=== PATIENT | female | born 1950 | race Caucasian/White ===

== ENCOUNTER 2017-12-27 03:57 | Observation (INO) | payer OTHER ==
[2017-12-27] MEDS ORDERED: ONDANSETRON 4 MG/2 ML VIAL ONE (04:24)
[2017-12-27] MEDS ORDERED: MORPHINE 4 MG/ML SYR ONE (04:24)
[2017-12-27] MEDS ORDERED: NA CHLORIDE 0.9% 1,000 ML ONE (04:33)
[2017-12-27 05:09] LABS: Absolute Lymphocytes (CBC) 1.5 K/uL (0.7-4.9); Absolute Monocytes 0.7 K/uL (0.1-1.3); Absolute Neutrophil 6.7 K/uL (1.8-8.0); Basophils % 0.6 % (0-1.3); Eosinophils % 0.2 % (0-4.4); Lymphocytes % 16.8 % (15.3-44.8); MCH 31.8 pg (27.0-35.0); MCV 90.1 fL (80-100); MPV 9.9 fL (7.6-11.3); Monocytes % 7.8 % (3.3-12.3); RBC Red Blood Cell Count 4.55 M/uL (3.86-4.86)
[2017-12-27 05:11] LABS: Protime INR 0.97
[2017-12-27 05:21] LABS: ALT/SGPT 30 U/L (12-78); AST/SGOT 29 U/L (15-37); Albumin 4.1 g/dL (3.4-5.0); Alkaline Phosphatase 82 U/L (45-117); BUN Blood Urea Nitrogen 16 mg/dL (7-18); Bicarbonate 32 mmol/L (21-32); Bilirubin Direct 0.2 mg/dL (0-0.2); Bilirubin Total 0.6 mg/dL (0.2-1.0); CKMB Creatine Kinase MB 2.6 ng/mL (0.3-3.6); Creatine Phosphokinase 118 U/L (26-192); Glucose Level 121 mg/dL (74-106); Magnesium 2.1 mg/dL (1.8-2.4); NT PRO-BNP 221 pg/mL (<125); Protein, Total 8.1 g/dL (6.4-8.2); Sodium Level 142 mmol/L (136-145); Troponin (Emerg Dept Use Only) < 0.02 ng/mL (0.0-0.045)
[2017-12-27] MEDS ORDERED: KETOROLAC 30 MG/ML INJ ONE (05:21)
--- NOTE | 2017-12-27 05:34 | EDPHYS ---
Physician Documentation [facility] Name: Kitty Nicholson Age: 67 yrs Sex: Female : 1950 Arrival Date: 12/27/2017 Time: 03:58 Bed 4 Private MD: ED Physician Yossi Bland HPI: 12/27 04:40 This 67 yrs old Female presents to ER via Ambulatory with complaints of Chest tw4 Pain. 04:40 The patient or guardian reports chest pain that is located primarily in the anterior tw4 chest wall. Onset: this morning. The pain does not radiate. Associated signs and symptoms: The patient has no apparent associated signs or symptoms. The chest pain is described as dull. Duration: The patient or guardian reports a single episode. Modifying factors: The symptoms are alleviated by nothing. the symptoms are aggravated by nothing. Historical: - Allergies: 05:20 PENICILLINS; tl1 - Home Meds: 04:10 Metoprolol Tartrate Oral [Active]; tl2 - PMHx: 04:10 lymphoma; cervical cancer; bladder cancer; Hypertension; tl2 - Immunization history:: Adult Immunizations up to date. - Social history:: Smoking status: Patient/guardian denies using tobacco. - Ebola Screening: : No symptoms or risks identified at this time. ROS: 04:40 Constitutional: Negative for fever, chills, and weight loss, Eyes: Negative for injury, tw4 pain, redness, and discharge, Cardiovascular: Negative for chest pain, palpitations, and edema, Respiratory: Negative for shortness of breath, cough, wheezing, and pleuritic chest pain, Abdomen/GI: Negative for abdominal pain, nausea, vomiting, diarrhea, and constipation, Back: Negative for injury and pain, Skin: Negative for injury, rash, and discoloration, Neuro: Negative for headache, weakness, numbness, tingling, and seizure. 04:40 MS/extremity: Positive for pain. Exam: 04:40 Constitutional: This is a well developed, well nourished patient who is awake, alert, tw4 and in no acute distress. Head/Face: Normocephalic, atraumatic. Chest/axilla: Normal chest wall appearance and motion. Nontender with no deformity. No lesions are appreciated. Cardiovascular: Regular rate and rhythm with a normal S1 and S2. No gallops, murmurs, or rubs. Normal PMI, no JVD. No pulse deficits. Respiratory: Lungs have equal breath sounds bilaterally, clear to auscultation and percussion. No rales, rhonchi or wheezes noted. No increased work of breathing, no retractions or nasal flaring. Abdomen/GI: Soft, non-tender, with normal bowel sounds. No distension or tympany. No guarding or rebound. No evidence of tenderness throughout. MS/ Extremity: Pulses equal, no cyanosis. Neurovascular intact. Full, normal range of motion. Neuro: Awake and alert, GCS 15, oriented to person, place, time, and situation. Cranial nerves II-XII grossly intact. Motor strength 5/5 in all extremities. Sensory grossly intact. Cerebellar exam normal. Normal gait. Vital Signs: 04:10 BP 190 / 88; Pulse 84; Resp 20; Temp 98.5(O); Pulse Ox 99% on R/A; Weight 52.62 kg; tl2 Height 5 ft. 6 in. (167.64 cm); Pain 6/10; 04:36 BP 114 / 51; Pulse 63; Resp 14; Pulse Ox 98% on 2 lpm NC; tl2 05:15 BP 168 / 69; Pulse 74; Resp 17; Pulse Ox 100% on 2 lpm NC; tl2 05:36 BP 157 / 66; Pulse 75; Resp 17; Pulse Ox 100% on 1 lpm NC; tl1 04:10 Body Mass Index 18.72 (52.62 kg, 167.64 cm) tl2 MDM: 03:59 Patient medically screened. tw4 04:40 Differential diagnosis: acute myocardial infarction, acute pericarditis, chest wall tw4 pain, Cholelithiasis pulmonary embolus, stable angina, thoracic aortic disection. Data reviewed: vital signs, nurses notes. Counseling: I had a detailed discussion with the patient and/or guardian regarding: the historical points, exam findings, and any diagnostic results supporting the discharge/admit diagnosis. 12/27 04:35 Order name: Basic Metabolic Panel; Complete Time: 05:28 4 12/27 05:29 Interpretation: Normal except: GLUC 121; GFR 55. [facility] 12/27 04:35 Order name: CBC with Diff; Complete Time: 05:28 4 12/27 05:30 Interpretation: Normal except: POLLY% 74.6. tw4 12/27 04:35 Order name: Ckmb; Complete Time: 05:28 tw4 12/27 05:30 Interpretation: Within normal limits: CKMB 2.6. tw4 12/27 04:35 Order name: CPK; Complete Time: 05:28 tw4 12/27 05:30 Interpretation: Within normal limits: CPK 118. tw4 12/27 04:35 Order name: LFT's; Complete Time: 05:28 tw4 12/27 05:30 Interpretation: Normal except: GLOB 4.0; A/G 1.0. tw4 12/27 04:35 Order name: Magnesium; Complete Time: 05:28 tw4 12/27 05:30 Interpretation: Within normal limits: MG 2.1. 4 12/27 04:35 Order name: NT PRO-BNP; Complete Time: 05:28 tw4 12/27 05:30 Interpretation: Normal except: NT PRO-BNP 221. 4 12/27 04:35 Order name: PT-INR; Complete Time: 05:28 tw4 12/27 04:35 Order name: Ptt, Activated; Complete Time: 05:28 tw4 12/27 04:35 Order name: Troponin (emerg Dept Use Only); Complete Time: 05:28 tw4 12/27 05:30 Interpretation: Within normal limits: TROPED < 0.02. tw4 12/27 05:44 Order name: Basic Metabolic Panel EDMS 12/27 05:44 Order name: Basic Metabolic Panel EDMS 12/27 05:44 Order name: CKMB Creatine Kinase MB EDMS 12/27 05:44 Order name: CKMB Creatine Kinase MB EDMS 12/27 04:35 Order name: XRAY Chest (1 view) tw4 12/27 05:44 Order name: Echo with Doppler EDMS 12/27 05:44 Order name: CKMB Creatine Kinase MB EDMS 12/27 05:44 Order name: Creatine Phosphokinase EDMS 12/27 05:44 Order name: Creatine Phosphokinase EDMS 12/27 05:44 Order name: Creatine Phosphokinase EDMS 12/27 05:44 Order name: Lipid Profile EDMS 12/27 05:44 Order name: Lipid Profile EDMS 12/27 05:44 Order name: PTT, Activated Partial Thromb EDMS 12/27 05:44 Order name: PTT, Activated Partial Thromb EDMS 12/27 05:44 Order name: Troponin I EDMS 12/27 05:44 Order name: Troponin I EDMS 12/27 05:44 Order name: Troponin I EDMS 12/27 05:45 Order name: CBC with Automated Diff EDMS 12/27 05:45 Order name: CBC with Automated Diff EDMS 12/27 04:35 Order name: EKG; Complete Time: 04:36 tw4 12/27 04:35 Order name: Cardiac monitoring; Complete Time: 04:38 tw4 12/27 04:35 Order name: EKG - Nurse/Tech; Complete Time: 04:38 tw4 12/27 04:35 Order name: IV Saline Lock; Complete Time: 04:38 tw4 12/27 04:35 Order name: Labs collected and sent; Complete Time: 04:38 tw4 12/27 04:35 Order name: O2 Per Protocol; Complete Time: 04:38 tw4 12/27 04:35 Order name: O2 Sat Monitoring; Complete Time: 04:38 tw4 12/27 05:44 Order name: CONS Physician Consult EDMS 12/27 05:44 Order name: Heart Healthy EDMS 12/27 05:44 Order name: EKG Electrocardiogram EDMS 12/27 05:44 Order name: EKG Electrocardiogram EDMS Administered Medications: 04:34 CANCELLED (Duplicate Order): Zofran 4 mg IM once tl2 04:35 Drug: morphine 4 mg Route: IVP; Infused Over: 2 mins; Site: right antecubital; tl2 06:00 Follow up: Response: No adverse reaction; Marked relief of symptoms; Pain is decreased tl1 04:35 Drug: Zofran 4 mg Route: IVP; Infused Over: 2 mins; Site: right antecubital; tl2 05:58 Follow up: Response: No adverse reaction; Marked relief of symptoms; Nausea is decreasedtl1 04:39 Drug: NS 0.9% 1000 ml Route: IV; Rate: 1 bolus; Site: right antecubital; tl2 05:58 Follow up: IV Status: Completed infusion tl1 05:19 Drug: TORadol 30 mg Route: IVP; Infused Over: 2 mins; Site: right antecubital; tl2 05:58 Follow up: Response: No adverse reaction; Marked relief of symptoms; Pain is decreased tl1 Disposition: 12/27/17 05:33 Hospitalization ordered by Estelle Luu for Observation. Preliminary diagnosis is Chest pain, unspecified. - Bed requested for Telemetry/MedSurg (observation). - Status is Observation. tl1 - Condition is Stable. - Problem is new. - Symptoms have improved. UTI on Admission? No Signatures: Dispatcher [employer] EDMS Trina Graf RN RN Audra Wright, RN RN tl1 Catina Kingston RN RN tl2 Yossi Bland MD MD tw4 Corrections: (The following items were deleted from the chart) 04:34 04:32 Zofran 4 mg IM once ordered. tl2 tl2 05:21 04:10 Allergies: No Known Allergies; tl2 tl1 05:37 05:33 Hospitalization Ordered by Estelle Luu MD for Observation. Preliminary diagnosis is Chest pain, unspecified. Bed requested for Telemetry/MedSurg (observation). Status is Observation. Condition is Stable. Problem is new. Symptoms have improved. UTI on Admission? No. tw4 06:26 05:37 12/27/2017 05:33 Hospitalization Ordered by Estelle Luu MD for Observation. tl1 Preliminary diagnosis is Chest pain, unspecified. Bed requested for Telemetry/MedSurg (observation). Status is Observation. Condition is Stable. Problem is new. Symptoms have improved. UTI on Admission? No. mw
--- NOTE | 2017-12-27 05:34 | ER ---
Nurse's Notes [facility] Name: Kitty Nicholson Age: 67 yrs Sex: Female : 1950 Arrival Date: 12/27/2017 Time: 03:58 Bed 4 Private MD: Diagnosis: Chest pain, unspecified Presentation: 12/27 04:08 Presenting complaint: Patient states: chest tightness that radiates to back since 1900 tl2 last night. Reports vomiting. Transition of care: patient was not received from another setting of care. Onset of symptoms was December 26, 2017 at 19:00. Risk Assessment: Do you want to hurt yourself or someone else? Patient reports no desire to harm self or others. Initial Sepsis Screen: Does the patient meet any 2 criteria? No. Patient's initial sepsis screen is negative. Does the patient have a suspected source of infection? No. Patient's initial sepsis screen is negative. Care prior to arrival: None. 04:08 Method Of Arrival: Ambulatory tl2 04:08 Acuity: JEAN CLAUDE 3 tl2 Triage Assessment: 04:10 General: Appears in no apparent distress. uncomfortable, Behavior is calm, cooperative, tl2 appropriate for age. Pain: Complains of pain in chest Pain radiates to back Pain currently is 6 out of 10 on a pain scale. Quality of pain is described as pressure. Neuro: Level of Consciousness is awake, alert, obeys commands, Oriented to person, place, time, situation. Cardiovascular: Chest pain is described as mild, quality is pressure, radiates back episodes are intermittent. Respiratory: Airway is patent Respiratory effort is even, unlabored, Respiratory pattern is regular, symmetrical. GI: Reports nausea, vomiting. : No signs and/or symptoms were reported regarding the genitourinary system. Derm: Skin is pink, warm \T\ dry. Historical: - Allergies: 05:20 PENICILLINS; tl1 - Home Meds: 04:10 Metoprolol Tartrate Oral [Active]; tl2 - PMHx: 04:10 lymphoma; cervical cancer; bladder cancer; Hypertension; tl2 - Immunization history:: Adult Immunizations up to date. - Social history:: Smoking status: Patient/guardian denies using tobacco. - Ebola Screening: : No symptoms or risks identified at this time. Screenin:13 Abuse screen: Denies threats or abuse. Nutritional screening: No deficits noted. tl2 Tuberculosis screening: No symptoms or risk factors identified. Fall Risk None identified. Assessment: 04:10 General: see triage assessment. tl2 04:10 Pain: Pain began 4 hours ago. tl1 Vital Signs: 04:10 BP 190 / 88; Pulse 84; Resp 20; Temp 98.5(O); Pulse Ox 99% on R/A; Weight 52.62 kg; tl2 Height 5 ft. 6 in. (167.64 cm); Pain 6/10; 04:36 BP 114 / 51; Pulse 63; Resp 14; Pulse Ox 98% on 2 lpm NC; tl2 05:15 BP 168 / 69; Pulse 74; Resp 17; Pulse Ox 100% on 2 lpm NC; tl2 05:36 BP 157 / 66; Pulse 75; Resp 17; Pulse Ox 100% on 1 lpm NC; tl1 04:10 Body Mass Index 18.72 (52.62 kg, 167.64 cm) tl2 Vitals: 05:15 Cardiac Rhythm Assessment Sinus rhythm. tl2 ED Course: 03:58 Patient arrived in ED. ds1 03:59 Yossi Bland MD is Attending Physician. tw4 04:09 Triage completed. tl2 04:10 Arm band placed on right wrist. tl2 04:13 Patient has correct armband on for positive identification. Bed in low position. Call tl2 light in reach. Side rails up X 1. monitor worker on. Pulse ox on. NIBP on. 04:13 Patient maintains SpO2 saturation greater than 95% on room air. tl2 04:13 Inserted saline lock: 20 gauge in right antecubital area, using aseptic technique. tl1 Blood collected. 04:37 Oxygen administration via nasal cannula \T\ 2L/min Response to oxygen therapy: symptoms tl2 improved. 04:49 X-ray completed. Portable x-ray completed in exam room. Patient tolerated procedure kp1 well. 04:52 XRAY Chest (1 view) In Process Unspecified. EDMS 05:33 Estelle Luu MD is Hospitalizing Provider. tw4 06:02 No provider procedures requiring assistance completed. tl1 06:03 Patient admitted, IV remains in place. tl1 Administered Medications: 04:34 CANCELLED (Duplicate Order): Zofran 4 mg IM once tl2 04:35 Drug: morphine 4 mg Route: IVP; Infused Over: 2 mins; Site: right antecubital; tl2 06:00 Follow up: Response: No adverse reaction; Marked relief of symptoms; Pain is decreased tl1 04:35 Drug: Zofran 4 mg Route: IVP; Infused Over: 2 mins; Site: right antecubital; tl2 05:58 Follow up: Response: No adverse reaction; Marked relief of symptoms; Nausea is decreasedtl1 04:39 Drug: NS 0.9% 1000 ml Route: IV; Rate: 1 bolus; Site: right antecubital; tl2 05:58 Follow up: IV Status: Completed infusion tl1 05:19 Drug: TORadol 30 mg Route: IVP; Infused Over: 2 mins; Site: right antecubital; tl2 05:58 Follow up: Response: No adverse reaction; Marked relief of symptoms; Pain is decreased tl1 Outcome: 05:33 Decision to Hospitalize by Provider. tw4 06:03 Admitted to Tele accompanied by tech, via wheelchair, with chart, Report called to [facility] Jessica 06:03 Condition: stable 06:03 Instructed on the need for admit. 06:26 Patient left the ED. tl1 Signatures: Dispatcher [employer] EDTanvi Fontaine dsAudra Kapadia RN RN tl1 Catina Kingston RN RN tl2 Barbara Allen kp1 Yossi Bland MD MD tw4 Corrections: (The following items were deleted from the chart) 05:21 04:10 Allergies: No Known Allergies; tl2 tl1
[2017-12-27] MEDS ORDERED: MORPHINE 4 MG/ML SYR IV PRN (05:40)
[2017-12-27] MEDS ORDERED: ACETAMINOPHEN 500 MG TAB PO PRN (05:40)
--- NOTE | 2017-12-27 08:20 | P.HP ---
Certification for Inpatient Patient admitted to: Observation With expected LOS: <2 Midnights Patient will require the following post-hospital care: None Practitioner: I am a practitioner with admitting privileges, knowledge of patient current condition, hospital course, and medical plan of care. Services: Services provided to patient in accordance with Admission requirements found in Title 42 Section 412.3 of the Code of Federal Regulations Patient History Date of Service: 12/27/17 Reason for admission: Chest pain rule out History of Present Illness: Patient is a 67-year-old female came to the hospital with chest pain. It has been going on since yesterday evening around 7:00 p.m.. It has not being in any better. She started having some nausea and vomiting. Pain went from her chest to her sternum and to her back. She has been doing some heavy lifting as well. Her pain got better after she was given some Toradol. Decision was not made to admit her to be ruled out for acute coronary syndrome. She actually had a birthday yesterday as well. Patient be admitted for rule out for acute coronary syndrome. She does not have any significant risk factors except for hypertension and her age as well as a family history as her father in his 50s from heart disease. She also had a sister who was slightly older who from multiple scleroses. Allergies Penicillins Allergy (Verified 12/27/17 05:54) Hives/Rash Home Medications: Aspirin [Ecotrin 81 MG] 81 mg PO DAILY #30 tablet. 12/27/17 Metoprolol Tartrate 25 mg PO BID #60 tablet 12/27/17 Simvastatin 20 mg PO DAILY #30 tablet 12/27/17 - Past Medical/Surgical History Has patient received pneumonia vaccine in the past: No Diabetic: No -: lymphoma -: cervical Ca -: bladder Ca -: HTN -: right foot sx -: right rotator cap sx - Family History Father Medical History: Heart disease Mother Medical History: Heart disease, Hypertension - Social History Smoking Status: Former smoker Alcohol use: Yes Place of Residence: Home Review of Systems 10-point ROS is otherwise unremarkable Physical Examination - Vital Signs Temperature: 98.2 F Blood Pressure: 157/71 Pulse: 80 Respirations: 16 Pulse Ox (%): 98 - Physical Exam General: Alert, In no apparent distress, Oriented x3 HEENT: Atraumatic, PERRLA, Mucous membr. moist/pink, EOMI, Sclerae nonicteric Neck: Supple, 2+ carotid pulse no bruit, No LAD, Without JVD or thyroid abnormality Respiratory: Clear to auscultation bilaterally, Normal air movement Cardiovascular: Regular rate/rhythm, Normal S1 S2, No murmurs Gastrointestinal: Normal bowel sounds, Soft and benign, Non-distended, No tenderness Musculoskeletal: No clubbing, No swelling, No tenderness Integumentary: No rashes Neurological: Normal gait, Normal speech, Normal strength at 5/5 x4 extr, Normal tone, Sensation intact, Normal affect Lymphatics: No axilla or inguinal lymphadenopathy - Studies Laboratory Data (last 24 hrs) 12/27/17 04:30: PT 11.4, INR 0.97, APTT 27.8 12/27/17 04:30: WBC 9.0, Hgb 14.5, Hct 41.0, Plt Count 219 12/27/17 04:30: Sodium 142, Potassium 4.0, BUN 16, Creatinine 1.00, Glucose 121 H, Magnesium 2.1, Total Bilirubin 0.6, AST 29, ALT 30, Alkaline Phosphatase 82 Assessment & Plan - Problems (Diagnosis) (1) Chest pain, rule out acute myocardial infarction Current Visit: Yes Status: Acute (2) History of hypertension Current Visit: Yes Status: Acute (3) Family history of heart disease Current Visit: Yes Status: Acute - Plan 1. Serial troponins and EKG; if last troponin is negative then she should be able to go home later today 2. Cardiology consultation 3. Echocardiogram and stress test as an outpatient 4. Anti-platelet therapy, anti coagulation, beta-peter, statin, and O2 as needed 5. Ibuprofen for pain if this is more musculoskeletal Discharge Plan: Home Plan to discharge in: 24 Hours - Advance Directives Does patient have a Living Will: Yes Does patient have a Durable POA for Healthcare: Yes - Code Status/Comfort Care Code Status Assessed: Yes Code Status: Full Code Critical Care: No Time Spent Managing PTS Care (In Minutes): 50
--- NOTE | 2017-12-27 08:36 | EKG ---
Test Date: 2017-12-27 Test Time: 04:17:25 Graphics Specialist: MEASUREMENT RESULTS: Intervals: Rate: 64 VT: 118 QRSD: 76 QT: 414 QTc: 427 [place]: P: 82 VT: 118 QRS: 72 T: 77 INTERPRETIVE STATEMENTS: Normal sinus rhythm Possible Left atrial enlargement Septal infarct, age undetermined Abnormal ECG Compared to ECG 01/07/1999 16:55:00 Myocardial infarct finding now present Left ventricular hypertrophy no longer present Electronically Signed On 12-27-17 08:36:18 CDT by Silver Cates
[2017-12-27] MEDS ORDERED: ENOXAPARIN 40 MG/0.4 ML SQ SCH (09:00)
[2017-12-27] MEDS ORDERED: METOPROLOL TAR 50 MG TAB PO SCH (09:00)
[2017-12-27] MEDS ORDERED: ASPIRIN EC 81 MG TAB PO SCH (09:00)
[2017-12-27 09:21] LABS: CKMB Creatine Kinase MB 2.1 ng/mL (0.3-3.6); Creatine Phosphokinase 83 U/L (26-192); Troponin I < 0.02 ng/mL (0.0-0.045)
--- NOTE | 2017-12-27 10:17 | RAD REPORT ---
EXAM DESCRIPTION: Kayla Single View12/27/2017 5:38 am CLINICAL HISTORY: CHEST PAIN COMPARISON: No comparisons FINDINGS: The lungs appear clear of acute infiltrate. The heart is normal size Right lung calcified granulomas are present IMPRESSION: No acute abnormalities displayed
--- NOTE | 2017-12-27 12:21 | CON ---
Date of Consultation: 12/27/[address] Luu's service on 12/27/2017. Reason For Consultation: Chest pain. History Of Present Illness: Ms. Nicholson is a 67-year-old woman without any past cardiac history. Sh juan francisco has a history of hypertension. She came in with atypical chest pain, sharp, stabbing, left-sided; some left shoulder pain. No nausea, vomiting, diaphoresis, PND, orthopnea, pedal edema, palpitation, or syncope. Negative EKG, chest x-ray, and CPK. Negative troponin. Negative BNP. Allergies: PENICILLIN. Review of Systems: Negative. Social History: Negative for tobacco. Family History: Negative. Medications: Home medications include metoprolol. Past Medical History: Include hypertension, history of cervical cancer, bladder cancer, lymphoma. Physical Examination: Vital Signs: Stable, afebrile. HEENT: Negative. Neck: Supple. No bruit. Chest: Clear to auscultation and percussion. Cardiac: Exam revealed a regular rhythm and rate without any murmurs, gallops, or rubs. Abdomen: Benign. Extremities: Revealed no clubbing, cyanosis, or edema. Diagnostic Data: Negative. Impression And Plan: 1.Atypical chest pain. 2.Hypertension. 3.History of cervical cancer, bladder cancer, and lymphoma. 4.Allergies to penicillin. Ms. Nicholson has ruled out. Her symptoms are atypical. There is an echo ordered, but cannot be done before next Thursday. She does definitely need an outpatient stress test. From my standpoint, she ca n go home whenever it is okay with Dr. Luu. We can do an echo and a stress test as an outpatient. I will discuss the case further with him. ADALI/ALEXANDER Voice ID: [id number] Report ID: [id number]
--- NOTE | 2017-12-28 00:01 | P.DS ---
Discharge Date: 12/27/17 Disposition: ROUTINE DISCHARGE Discharge Condition: GOOD Reason for Admission: Chest pain rule out Consultations: cardiology - Problems (1) Chest pain, rule out acute myocardial infarction Status: Acute (2) History of hypertension Status: Acute (3) Family history of heart disease Status: Acute Brief History of Present Illness: Patient is a 67-year-old female came to the hospital with chest pain. It has been going on since yesterday evening around 7:00 p.m.. It has not being in any better. She started having some nausea and vomiting. Pain went from her chest to her sternum and to her back. She has been doing some heavy lifting as well. Her pain got better after she was given some Toradol. Decision was not made to admit her to be ruled out for acute coronary syndrome. She actually had a birthday yesterday as well. Patient be admitted for rule out for acute coronary syndrome. She does not have any significant risk factors except for hypertension and her age as well as a family history as her father in his 50s from heart disease. She also had a sister who was slightly older who from multiple scleroses. Hospital Course: Patient was ruled out for acute coronary syndrome. Advised to follow-up as an outpt for further testing. Vital Signs/Physical Exam: Temp Pulse Resp BP Pulse Ox 98.2 F 80 16 157/71 H 98 12/27/17 08:20 12/27/17 09:46 12/27/17 08:20 12/27/17 09:46 12/27/17 08:20 General: Alert, In no apparent distress, Oriented x3 Laboratory Data at Discharge: WBC 9.0 K/uL (4.3-10.9) 12/27/17 04:30 Hgb 14.5 g/dL (12.0-15.0) 12/27/17 04:30 Hct 41.0 % (36.0-45.0) 12/27/17 04:30 Plt Count 219 K/uL (152-406) 12/27/17 04:30 PT 11.4 SECONDS (9.5-12.5) 12/27/17 04:30 INR 0.97 12/27/17 04:30 APTT 27.8 SECONDS (24.3-36.9) 12/27/17 04:30 Sodium 142 mmol/L (136-145) 12/27/17 04:30 Potassium 4.0 mmol/L (3.5-5.1) 12/27/17 04:30 BUN 16 mg/dL (7-18) 12/27/17 04:30 Creatinine 1.00 mg/dL (0.55-1.3) 12/27/17 04:30 Glucose 121 mg/dL (74-106) H 12/27/17 04:30 Magnesium 2.1 mg/dL (1.8-2.4) 12/27/17 04:30 Total Bilirubin 0.6 mg/dL (0.2-1.0) 12/27/17 04:30 AST 29 U/L (15-37) 12/27/17 04:30 ALT 30 U/L (12-78) 12/27/17 04:30 Alkaline Phosphatase 82 U/L (45-117) 12/27/17 04:30 Troponin I < 0.02 ng/mL (0.0-0.045) 12/27/17 08:55 Triglycerides 59 mg/dL (<150) 12/27/17 08:55 Cholesterol 252 mg/dL (<200) H 12/27/17 08:55 HDL Cholesterol 134 mg/dL (40-60) H 12/27/17 08:55 Cholesterol/HDL Ratio 1.88 12/27/17 08:55 Home Medications: Adalimumab [Humira 40 MG/0.8 ML] 40 mg SQ SEECOM 12/27/17 Aspirin [Ecotrin 81 MG] 81 mg PO DAILY #30 tablet. 12/27/17 Folic Acid 0.4 mg PO DAILY 12/27/17 Metoprolol Tartrate 25 mg PO BID #60 tablet 12/27/17 Metoprolol Tartrate [Lopressor*] 1 tab PO BID 12/27/17 Multivitamin [Multivitamins] 1 each PO DAILY 12/27/17 Simvastatin 20 mg PO DAILY #30 tablet 12/27/17 New Medications: Aspirin [Ecotrin 81 MG] 81 mg PO DAILY #30 tablet. Metoprolol Tartrate 25 mg PO BID #60 tablet Simvastatin 20 mg PO DAILY #30 tablet Patient Discharge Instructions: OK TO DC IV AND DC HOME if okay with Cardiology. FOLLOW-UP WITH PRIMARY CARE PROVIDER IN 1-2 WEEKS. FOLLOW-UP WITH CARDIOLOGY IN 1-2 WEEKS. RETURN TO THE ER IF symptoms worsen. CALL or TEXT DR. TRINIDAD AT [phone] IF ANY QUESTIONS REGARDING HOSPITAL STAY. PLEASE CALL THE FLOOR AT [phone] IF ANY MEDICATION OR NURSING QUESTIONS. Diet: AHA Activity: Fall precautions Followup: Silver Cates MD [ACTIVE - CAN ADMIT] - 1-2 Weeks Adelso Triana MD [UNKNOWN] - 1-2 Weeks Time spent managing pt's care (in minutes): 15
== END 2017-12-27 11:00 | disposition home or self-care (01) ==
LOC: ER 03:57 → 2ND 05:41
PROVIDERS: ADMIT Hospitalist; ATTEND Hospitalist
DX: R07.9 Chest pain, unspecified (principal); I10 Essential (primary) hypertension; Z82.49 Family history of ischemic heart disease and other diseases of the circulatory system; Z88.0 Allergy status to penicillin; Z85.41 Personal history of malignant neoplasm of cervix uteri; Z85.51 Personal history of malignant neoplasm of bladder; Z85.72 Personal history of non-Hodgkin lymphomas
CPT/HCPCS: 36415; 71045; 80048; 80061; 80076; 82550 ×2; 82553 ×2; 83735; 83880; 84484 ×2; 85025; 85610; 85730; 93005; 96361; 96374; 96375; 99285; G0378 ×2; J2405; J7030

== ENCOUNTER 2019-06-23 19:36 | Observation (INO) | payer OTHER ==
--- OUTSIDE RECORDS SUMMARY | 2019-06-23 19:39 | XMS REPORT | Summary of Care ---
:1950 Author Organization [facility] - [facility] Address [address] [place] [address] Care Team Providers Name Role Phone Adelso Triana MD Primary Care Provider Reason for Visit Reason Comments Assessment TRIAGE Encounter Details Date Type Department Care Team Description 06/22/2019 Telephone [facility] Adelso Triana Assessment (TRIAGE) Medicine - Alon Horton MD [facility] [place] [address] [facility] [place] [address] [place], [place] [phone] Allergies Active Allergy Reactions Severity Noted Date Comments Penicillin Unknown - See comments 06/18/2015 documented as of this encounter (statuses as of 06/22/2019) Medications Medication Sig Dispensed Refills Start Date End Date Status HUMIRA PEN 40 mg/0.8 0 08/11/2015 Active mL injection zolpidem 10 mg Take 1 tablet by 30 tablet 5 12/31/2017 Active tabletIndications: mouth at bedtime Insomnia, unspecified as needed for type Insomnia. metoprolol tartrate 50 TAKE 1 TABLET BY 180 tablet 4 12/31/2017 Active mg tabletIndications: MOUTH TWO TIMES Essential hypertension DAILY DIPHENOXYLATE-ATROPINE TAKE ONE (1) 30 tablet 4 07/02/2018 Active 2.5-0.025 mg per TABLET(S) BY tabletIndications: MOUTH EVERY SIX Diarrhea, unspecified HOURS NEEDED type FOR DIARRHEA. gabapentin 100 mg Take 1 capsule by 30 capsule 5 06/17/2019 Active capsuleIndications: mouth 3 (three) Earache on right times daily as needed (pain). traMADol 50 mg Take 1 tablet by 30 tablet 0 06/20/2019 Active tabletIndications: mouth every 6 Earache on right (six) hours as needed (pain). documented as of this encounter (statuses as of 06/22/2019) Active Problems Problem Noted Date Essential hypertension 08/31/2015 Bladder cancer 08/31/2015 Psoriasis 08/31/2015 Psoriatic arthritis 08/31/2015 Insomnia 08/31/2015 documented as of this encounter (statuses as of 06/22/2019) Immunizations Name Administration Dates Next Due Influenza High Dose 03/09/2018 PPD (TB) 08/26/2016 documented as of this encounter Social History Tobacco Use Types Packs/Day Years Used Date Former Smoker Smokeless Tobacco: Never Used Alcohol Use Drinks/Week oz/Week Comments Yes 1 Shots of liquor 1.0 occ 0 Standard drinks or equivalent Sex Assigned at Date Recorded Not on file Job Start Date Occupation Industry Not on file Not on file Not on file Travel History Travel Start Travel End No recent travel history available. documented as of this encounter Last Filed Vital Signs Not on filedocumented in this encounter Plan of Treatment Health Maintenance Due Date Last Done Comments HEPATITIS C (HCV) SCREEN 1950 DTaP,Tdap,and Td Vaccines (1 - Tdap) 1960 Breast Cancer Screening (MAMMOGRAM) 1989 COLONOSCOPY 12/27/1999 Zoster Recombinant Vaccine (SHINGRIX) (1 of 2) 12/27/1999 LUNG CANCER SCREEN: Recommended for age 55-80 with 30 2004 + pack year history Medicare Wellness Visit 2014 Osteoporosis Screening 2014 PNEUMOCOCCAL VACCINES 65+ (1 of 2 - PCV13) 2014 INFLUENZA VACCINE (#1) 2018 03/09/2018 documented as of this encounter Results Not on filedocumented in this encounter Insurance Payer Benefit Plan Subscriber ID Effective Dates Phone Address Type / Group HUMANA - HUMANA CHOICE [id number] 2015-Pres[employer] Medicare Adv MANAGED t PPO MEDICARE documented as of this encounter
--- OUTSIDE RECORDS SUMMARY | 2019-06-23 19:39 | XMS REPORT | Summary of Care ---
:1950 Author Organization [facility] - [facility] Address [address] [place] [address] Care Team Providers Name Role Phone Adelso Triana MD Primary Care Provider Reason for Visit Reason Comments Assessment ear pain/twitching Encounter Details Date Type Department Care Team Description 06/20/2019 Telephone [facility] Adelso rTiana Assessment (ear Medicine - Alon Horton MD pain/twitching) [address] [facility] [address] [facility] [place] [phone] Allergies Active Allergy Reactions Severity Noted Date Comments Penicillin Unknown - See comments 06/18/2015 documented as of this encounter (statuses as of 06/20/2019) Medications Medication Sig Dispensed Refills Start Date [...] as of this encounter (statuses as of 06/20/2019) Active Problems Problem Noted Date Essential hypertension 08/31/2015 Bladder cancer 08/31/2015 Psoriasis 08/31/2015 Psoriatic arthritis 08/31/2015 Insomnia 08/31/2015 documented as of this encounter (statuses as of 06/20/2019) Immunizations Name Administration Dates Next Due Influenza [...] Results Not on filedocumented in this encounter Visit Diagnoses Diagnosis Earache on right - Primary Otalgia, unspecified documented in this encounter Insurance Payer Benefit Plan Subscriber ID Effective Dates Phone Address Type / Group HUMANA - HUMANA CHOICE [id number] 2015-[facility] Medicare Adv MANAGED t PPO MEDICARE documented as of this encounter
--- OUTSIDE RECORDS SUMMARY | 2019-06-23 19:39 | XMS REPORT ---
:1950 Author Organization [facility] Address [address] [place] [address] Dr. Elam [address] [place] [address] Care Team Providers Name Role Phone Unavailable Unavailable Unavailable Problems This patient has no known problems. Allergies, Adverse Reactions, Alerts This patient has no known allergies or adverse reactions. Medications This patient has no known medications.
--- OUTSIDE RECORDS SUMMARY | 2019-06-23 19:39 | XMS REPORT | Summary of Care ---
:1950 Author Organization [facility] - [facility] Address [address] [place] [address] Care Team Providers Name Role Phone Adelso Triana MD Primary Care Provider Reason for Visit Reason Comments Ear Pain Encounter Details Date Type Department Care Team Description 06/17/2019 Office Visit [facility] Family Adelso Triana Earache on right [facility] - Alon Horton MD (Primary Dx) [address] [place] [facility] [place] [phone] Allergies Active Allergy Reactions Severity Noted Date Comments Penicillin Unknown - See comments 06/18/2015 documented as of this encounter (statuses as of 06/17/2019) Medications Medication Sig Dispensed Refills Start Date End Date Status HUMIRA PEN 40 0 08/11/2015 Active mg/0.8 mL injection zolpidem 10 mg Take 1 30 tablet 5 12/31/2017 Active tabletIndications: tablet by Insomnia, mouth at unspecified type bedtime as needed for Insomnia. metoprolol TAKE 1 180 tablet 4 12/31/2017 Active tartrate 50 mg TABLET BY tabletIndications: MOUTH TWO Essential TIMES DAILY hypertension DIPHENOXYLATE-ATRO TAKE ONE (1) 30 tablet 4 07/02/2018 Active PINE 2.5-0.025 mg TABLET(S) BY per MOUTH EVERY tabletIndications: SIX HOURS Diarrhea, NEEDED FOR unspecified type DIARRHEA. gabapentin 100 mg Take 1 30 capsule 5 06/17/2019 Active capsuleIndications capsule by : Earache on right mouth 3 (three) times daily as needed (pain). folic acid 400 mcg Take 400 mcg 0 Discontinued tablet by mouth 0 daily. pantoprazole 40 mg Take 1 30 tablet 5 12/31/2017 Discontinued EC tablet by 0 tabletIndications: mouth daily. Atypical chest pain METOPROLOL TAKE ONE (1) 180 tablet 3 06/17/2018 Discontinued TARTRATE 50 mg TABLET(S) BY 0 (Duplicate) tabletIndications: MOUTH TWICE Essential A DAY. hypertension documented as of this encounter (statuses as of 06/17/2019) Active Problems Problem Noted Date Essential hypertension 08/31/2015 Bladder cancer 08/31/2015 Psoriasis 08/31/2015 Psoriatic arthritis 08/31/2015 Insomnia 08/31/2015 documented as of this encounter (statuses as of 06/17/2019) Immunizations Name Administration Dates Next Due Influenza [...] of this encounter Last Filed Vital Signs Vital Sign Reading Time Taken Comments Blood Pressure 189/82 06/17/2019 4:14 PM DATABASE SECURITY ADMINISTRATOR Pulse 78 06/17/2019 4:14 PM DATABASE SECURITY ADMINISTRATOR Temperature - - Respiratory Rate 20 06/17/2019 4:14 PM DATABASE SECURITY ADMINISTRATOR Oxygen Saturation 99% 06/17/2019 4:14 PM DATABASE SECURITY ADMINISTRATOR Inhaled Oxygen Concentration - - Weight 56.1 kg (123 lb 9.6 oz) 06/17/2019 4:14 PM DATABASE SECURITY ADMINISTRATOR Height 167.6 cm (5' 6") 06/17/2019 4:14 PM DATABASE SECURITY ADMINISTRATOR Body Mass Index 19.95 06/17/2019 4:14 PM DATABASE SECURITY ADMINISTRATOR documented in this encounter Progress Adelso Vera MD - 06/17/2019 4:15 PM CST CC: pain right ear and behind eye Kitty is a 68 year old female Ear Pain Location: Right Behind ear: No abnormality Quality: Sharp Severity: Moderate Duration: 1 day Timing: Intermittent Progression: Partially resolved Context: not direct blow, not elevation change, not foreign body in ear, not loud noise, not recent URI and not water in ear Associated symptoms: no congestion, no cough, no fever, no headaches, no rhinorrhea, no sore throat and no tinnitus Allergies Allergen Reactions Penicillin Unknown - See comments Current Outpatient Medications Medication Sig Dispense Refill DIPHENOXYLATE-ATROPINE 2.5-0.025 mg per tablet TAKE ONE (1) TABLET(S) BY MOUTH EVERY SIX HOURS NEEDED FOR DIARRHEA. 30 tablet 4 metoprolol tartrate 50 mg tablet TAKE 1 TABLET BY MOUTH TWO TIMES DAILY 180 tablet 4 zolpidem 10 mg tablet Take 1 tablet by mouth at bedtime as needed for Insomnia. 30 tablet 5 HUMIRA PEN 40 mg/0.8 mL injection No current facility-administered medications for this visit. Past Medical History: Diagnosis Date Bladder cancer Cervical cancer Hypertension Insomnia Psoriasis Psoriatic arthritis Past Surgical History: Procedure Laterality Date ENTEROENTEROSTOMY 2012 REPAIR ROTATOR CUFF,ACUTE Right Social History Socioeconomic History Marital status: Spouse name: Not on file Number of children: Not on file Years of education: Not on file Highest education level: Not on file Occupational History Not on file Social Needs Financial resource strain: Not on file Food insecurity: Worry: Not on file Inability: Not on file Transportation needs: Medical: Not on file Non-medical: Not on file Tobacco Use Smoking status: Former Smoker Smokeless tobacco: Never Used Substance and Sexual Activity Alcohol use: Yes Alcohol/week: 1.0 standard drinks Types: 1 Shots of liquor per week Comment: occ Drug use: No Sexual activity: Not on file Lifestyle Physical activity: Days per week: Not on file Minutes per session: Not on file Stress: Not on file Relationships Social connections: Talks on phone: Not on file Gets together: Not on file Attends latter day service: Not on file Active member of club or organization: Not on file Attends meetings of clubs or organizations: Not on file Relationship status: Not on file Intimate partner violence: Fear of current or ex partner: Not on file Emotionally abused: Not on file Physically abused: Not on file Forced sexual activity: Not on file Other Topics Concern Not on file Social History Narrative 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 HENT: Positive for ear pain. Negative for congestion, rhinorrhea, sore throat and tinnitus. Respiratory: Negative for cough. Neurological: Negative for headaches. BP (!) 189/82 | Pulse 78 | Resp 20 | Ht 5' 6" (1.676 m) | Wt 123 lb 9.6 oz ( 56.1 kg) | SpO2 99% | BMI 19.95 kg/m Physical Exam Constitutional: She is oriented to person, place, and time. She appears well- developed and well-nourished. HENT: Head: Normocephalic and atraumatic. Eyes: Pupils are equal, round, and reactive to light. Conjunctivae are normal. Neck: Normal range of motion. Neck supple. No JVD present. No tracheal deviation present. No thyromegaly present. Cardiovascular: Normal rate, regular rhythm, normal heart sounds and intact distal pulses. Exam reveals no gallop and no friction rub. No murmur heard. Pulmonary/Chest: Effort normal and breath sounds normal. No respiratory distress. She has no wheezes. She has no rales. She exhibits no tenderness. Abdominal: Soft. Bowel sounds are normal. She exhibits no distension and no mass. There is no tenderness. There is no rebound and no guarding. Musculoskeletal: Normal range of motion. She exhibits no edema or tenderness. Lymphadenopathy: She has no cervical adenopathy. Neurological: She is alert and oriented to person, place, and time. Skin: Skin is warm and dry. Diagnosis: 1. Earache on right gabapentin 100 mg capsule Follow up: prn Patient Care Team: Adelso Triana MD as PCP - General ([facility]-FAMILY MEDICINE) Plan of care, desired health behaviors, goals,& medication discussed with patient. Education resources & self management tools provided and reviewed with AVS. Patient/guardian/family verbalized understanding & agrees to plan of care. Barriers to care: None Ability to manage care: Good documented in this encounter Plan of Treatment Health [...] Type / Group HUMANA - HUMANA CHOICE [id number] 2015-[employer] Medicare Adv MANAGED t O MEDICARE documented as of this encounter
--- OUTSIDE RECORDS SUMMARY | 2019-06-23 19:39 | XMS REPORT | Summary of Care ---
:1950 Author Organization [facility] - [facility] Address [address] [place] [address] Care Team Providers Name Role Phone Adelso Triana MD Primary Care Provider Encounter Details Date Type Department Care Team Description 06/17/2019 Orders Only [facility] Doctor Unassigned, No [address] [facility] [place] [address] [address] [place] [address] Allergies Active Allergy Reactions Severity Noted Date Comments Penicillin Unknown - See comments 06/18/2015 documented as of this encounter (statuses as of 06/17/2019) Medications Medication Sig Dispensed Refills Start Date End Date Status HUMIRA PEN 40 mg/0.8 0 08/11/2015 Active mL injection folic acid 400 mcg Take 400 mcg by 0 Active tablet mouth daily. pantoprazole 40 mg EC Take 1 tablet by 30 tablet 5 12/31/2017 Active tabletIndications: mouth daily. Atypical chest pain zolpidem 10 mg Take 1 tablet by 30 tablet 5 12/31/2017 Active tabletIndications: mouth at bedtime Insomnia, unspecified as needed for type Insomnia. metoprolol tartrate 50 TAKE 1 TABLET BY 180 tablet 4 12/31/2017 Active mg tabletIndications: MOUTH TWO TIMES Essential hypertension DAILY METOPROLOL TARTRATE 50 TAKE ONE (1) 180 tablet 3 06/17/2018 Active mg tabletIndications: TABLET(S) BY Essential hypertension MOUTH TWICE A DAY. DIPHENOXYLATE-ATROPINE TAKE ONE (1) 30 tablet 4 07/02/2018 Active 2.5-0.025 mg per TABLET(S) BY tabletIndications: MOUTH EVERY SIX Diarrhea, unspecified HOURS NEEDED type FOR DIARRHEA. documented as of this encounter (statuses as [...] filedocumented in this encounter Plan of Treatment Date Type Specialty Care Team Description 06/17/2019 Office Visit Family Medicine Adelso Triana MD [address] [place] [address] [place] [phone] Health Maintenance Due Date Last Done Comments [...] 2018 03/09/2018 documented as of this encounter Procedures Procedure Name Priority Date/Time Associated Diagnosis Comments ASSIGNMENT OF BENEFITS Routine 06/17/2019 4:08 PM FORM STRIPPER documented in this encounter Results Not on filedocumented in this encounter Insurance Payer Benefit Plan Subscriber ID Effective Dates Phone Address Type / Group HUMANA - HUMANA CHOICE [id number] 2015-[employer] Medicare Adv MANAGED t PPO MEDICARE documented as of this encounter
--- OUTSIDE RECORDS SUMMARY | 2019-06-23 19:39 | XMS REPORT | Summary of Care ---
:1950 Author Organization [facility] - [facility] Address [address] [place] [address] Care Team Providers Name Role Phone Adelso Triana MD Primary Care Provider Reason for Visit Reason Comments Ear Pain Encounter Details Date Type Department Care Team Description 06/17/2019 Office Visit [facility] Adelso Triana Earache on right [facility] - Alon Horton MD (Primary Dx) [address] [facility] [place] [phone] Allergies Active Allergy Reactions Severity Noted Date [...] Comments Blood Pressure 189/82 06/17/2019 4:14 PM SOIL CONSERVATIONIST Pulse 78 06/17/2019 4:14 PM SOIL CONSERVATIONIST Temperature - - Respiratory Rate 20 06/17/2019 4:14 PM SOIL CONSERVATIONIST Oxygen Saturation 99% 06/17/2019 4:14 PM SOIL CONSERVATIONIST Inhaled Oxygen Concentration - - Weight 56.1 kg (123 lb 9.6 oz) 06/17/2019 4:14 PM SOIL CONSERVATIONIST Height 167.6 cm (5' 6") 06/17/2019 4:14 PM SOIL CONSERVATIONIST Body Mass Index 19.95 06/17/2019 4:14 PM SOIL CONSERVATIONIST documented in this encounter Progress Adelso Vera [...] file Gets together: Not on file Attends muslim service: Not on file Active member of [...] History Narrative 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
--- OUTSIDE RECORDS SUMMARY | 2019-06-23 19:39 | XMS REPORT | Summary of Care ---
:1950 Author Organization [facility] - [facility] Address [address] [place] [address] Care Team Providers Name Role Phone Adelso Triana MD Primary Care Provider Reason for Visit Reason Comments Medical Records Encounter Details Date Type Department Care Team Description 06/23/2019 Telephone [facility] Adelso Triana, Medical Records Medicine - Alon PEPE [facility] [address] [place] [address] [place] [phone] Allergies Active Allergy Reactions Severity Noted Date Comments Penicillin Unknown - See comments 06/18/2015 documented as of this encounter (statuses as of 06/23/2019) Medications Medication Sig Dispensed Refills Start Date [...] as of this encounter (statuses as of 06/23/2019) Active Problems Problem Noted Date Essential hypertension 08/31/2015 Bladder cancer 08/31/2015 Psoriasis 08/31/2015 Psoriatic arthritis 08/31/2015 Insomnia 08/31/2015 documented as of this encounter (statuses as of 06/23/2019) Immunizations Name Administration Dates Next Due Influenza [...] Treatment Date Type Specialty Care Team Description 06/23/2019 Office Visit Family Medicine Opal [place], AMANDA [address] [place] [address] [place] [phone] Health Maintenance Due Date Last Done Comments [...] Type / Group HUMANA - HUMANA CHOICE [id number] 2015-[place] Medicare Adv MANAGED t PPO MEDICARE documented as of this encounter
--- NOTE | 2019-06-23 20:44 | EDPHYS ---
Physician Documentation [facility] Name: Kitty Nicholson Age: 68 yrs Sex: Female : 1950 Arrival Date: 06/23/2019 Time: 19:39 Bed 20 Private MD: ED Physician Cheko John HPI: 06/23 20:14 This 68 yrs old Female presents to ER via Ambulatory with complaints of Rash. pkl 20:14 The rash is located on the Mouth, right cheek and right ear. The rash can be described pkl as vesicular. Onset: The symptoms/episode began/occurred 1 week(s) ago. Associated signs and symptoms: Pertinent positives: Pain. Saw 2 doctors today and both diagnosed her with shingles and recommended her for admission and IV infusion of Acyclovir. Historical: - Allergies: 19:48 PENICILLINS; sg - Home Meds: 20:58 Metoprolol Tartrate Oral [Active]; wh - PMHx: 19:48 Bladder cancer; cervical cancer; Hypertension; LYMPHOMA; sg - Immunization history:: Adult Immunizations up to date. - Social history:: Smoking status: Patient denies any tobacco usage or history of. ROS: 20:14 Eyes: Negative for injury, pain, redness, and discharge. pkl 20:14 ENT: Positive for rash right earlobe. 20:14 Neck: Negative for stiffness. 20:14 Cardiovascular: Negative for chest pain. 20:14 Respiratory: Negative for cough, shortness of breath. 20:14 Abdomen/GI: Negative for abdominal pain, nausea, vomiting, and diarrhea. 20:14 Back: Negative for acute changes. 20:14 : Negative for urinary symptoms. 20:14 MS/extremity: Negative for acute changes. 20:14 Skin: Positive for rash, of the mouth, right cheek and right earlobe. 20:14 Neuro: Negative for altered mental status. Exam: 20:14 Head/face: Noted is rash, of the right cheek. pkl 20:14 Eyes: Exam is negative for acute changes. 20:14 ENT: rash right earlobe. 20:14 Neck: Exam negative for nuchal rigidity. 20:14 Chest/axilla: Exam negative for acute changes. 20:14 Cardiovascular: Rate: normal, Rhythm: regular. 20:14 Respiratory: Exam negative for acute changes. 20:14 Abdomen/GI: Exam negative for acute changes. 20:14 Back: Exam negative for acute changes. 20:14 : Exam negative for acute changes. 20:14 Musculoskeletal/extremity: Exam is negative for acute changes. 20:14 Skin: on the mouth, right cheek and right earlobe. 20:14 Neuro: Orientation: is normal, Mentation: is normal, Cranial nerves: grossly normal, Motor: is normal. 20:44 Constitutional: This is a well developed, well nourished patient who is awake, alert, pkl and in no acute distress. Vital Signs: 19:48 BP 118 / 70; Pulse 78; Resp 18; Pulse Ox 100% on R/A; Weight 59.87 kg (R); sg 21:03 BP 165 / 71; Pulse 70; Resp 18; Pulse Ox 96% ; wh 22:02 BP 145 / 93; Pulse 72; Resp 18; Pulse Ox 96% on R/A; MDM: 19:46 Patient medically screened. pkl 20:41 Data reviewed: vital signs, nurses notes. ED course: Talked to Dr. Luu, admit. pkl 06/23 21:00 Order name: CBC with Diff; Complete Time: 01:51 pkl 06/23 21:00 Order name: Chem 7; Complete Time: 01:51 pkl 06/23 21:41 Order name: CBC Smear Scan; Complete Time: 01:51 EDMS 06/23 21:45 Order name: CBC with Automated Diff EDMS 06/23 21:45 Order name: CBC with Automated Diff EDMS 06/23 21:45 Order name: Comprehensive Metabolic Panel EDMS 06/23 21:45 Order name: CONS Pharmacy Consult EDMS 06/23 21:45 Order name: NPO EDMS 06/23 21:45 Order name: Comprehensive Metabolic Panel EDMS Administered Medications: 21:50 Drug: NS 0.9% 1000 ml Route: IV; Rate: 100 ml/hr; Site: right antecubital; 22:22 Follow up: Response: No adverse reaction; IV Status: Completed infusion 21:51 Drug: Kenneth (7.5 mg-325 mg) 1 tabs Route: PO; 22:22 Follow up: Response: No adverse reaction; Pain is decreased; RASS: Alert and Calm (0) Disposition: 02/27/20 20:44 Hospitalization ordered by Estelle Luu for Inpatient Admission. Preliminary diagnosis is Herpes zoster mouth, right cheek and right earlobe. - Bed requested for Telemetry/MedSurg (Inpatient). - Status is Inpatient Admission. - Condition is Stable. - Problem is new. - Symptoms are unchanged. Signatures: Dispatcher [employer] EDNura Lal, CHRISTA RN Cheko Cortez MD MD pkl [facility] Alin Benitez mw2 Corrections: (The following items were deleted from the chart) 21:47 20:44 Hospitalization Ordered by Estelle Luu MD for Inpatient Admission. Preliminary mw2 diagnosis is Herpes zoster mouth, right cheek and right earlobe. Bed requested for Telemetry/MedSurg (Inpatient). Status is Inpatient Admission. Condition is Stable. Problem is new. Symptoms are unchanged. pkl 22:23 21:47 06/23/2019 20:44 Hospitalization Ordered by Estelle Luu MD for Inpatient Admission. Preliminary diagnosis is Herpes zoster mouth, right cheek and right earlobe. Bed requested for Telemetry/MedSurg (Inpatient). Status is Inpatient Admission. Condition is Stable. Problem is new. Symptoms are unchanged. mw2
--- NOTE | 2019-06-23 20:44 | ER ---
Nurse's Notes [facility] Name: Kitty Nicholson Age: 68 yrs Sex: Female : 1950 Arrival Date: 06/23/2019 Time: 19:39 Bed 20 Private MD: Diagnosis: Herpes zoster mouth, right cheek and right earlobe Presentation: 06/23 19:45 Onset of symptoms was June 23, 2019 at 21:02. 19:48 Acuity: JEAN CLAUDE 3 sg 19:48 Chief complaint: Patient states: My doctor told me to get to the ER for IV infusion for sg my shingles on my face, a linear rash is noted that spreads from the pt mouth up to the right ear, pt reports painful blisters inside mouth and throat with difficulty swallowing. Coronavirus screen: The patient has NOT traveled to [place] in the past 14 days. The patient has NOT had contact with known and/or suspected case of Coronavirus. Ebola Screen: Patient negative for fever greater than or equal to 101.5 degrees Fahrenheit, and additional compatible Ebola Virus Disease symptoms Patient denies exposure to infectious person. Patient denies travel to an Ebola-affected area in the 21 days before illness onset. No symptoms or risks identified at this time. Initial Sepsis Screen: Does the patient meet any 2 criteria? No. Patient's initial sepsis screen is negative. Does the patient have a suspected source of infection? No. Patient's initial sepsis screen is negative. Risk Assessment: Do you want to hurt yourself or someone else? Patient reports no desire to harm self or others. 19:48 Method Of Arrival: Ambulatory sg Historical: - Allergies: 19:48 PENICILLINS; sg - Home Meds: 20:58 Metoprolol Tartrate Oral [Active]; wh - PMHx: 19:48 Bladder cancer; cervical cancer; Hypertension; LYMPHOMA; sg - Immunization history:: Adult Immunizations up to date. - Social history:: Smoking status: Patient denies any tobacco usage or history of. Screenin:45 Abuse screen: Denies threats or abuse. Denies injuries from another. Nutritional wh screening: No deficits noted. Tuberculosis screening: No symptoms or risk factors identified. Fall Risk None identified. Assessment: 19:50 General: Appears in no apparent distress. Behavior is calm, cooperative, appropriate wh for age. Pain: Complains of pain in right side of face Pain does not radiate. Neuro: Level of Consciousness is awake, alert, obeys commands, Oriented to person, place, time, situation, Appropriate for age. Cardiovascular: Heart tones S1 S2. Respiratory: Airway is patent Respiratory effort is even, unlabored, Respiratory pattern is regular, symmetrical, Breath sounds are clear bilaterally. GI: Abdomen is flat, non-distended. : No signs and/or symptoms were reported regarding the genitourinary system. EENT: No signs and/or symptoms were reported regarding the EENT system. Derm: Rash noted that is red, on right side of face. Musculoskeletal: Circulation, motion, and sensation intact. 21:04 Reassessment: Patient appears in no apparent distress at this time. No changes from previously documented assessment. Patient and/or family updated on plan of care and expected duration. Pain level reassessed. Patient is alert, oriented x 3, equal unlabored respirations, skin warm/dry/pink. 22:02 Reassessment: Patient appears in no apparent distress at this time. No changes from previously documented assessment. Patient and/or family updated on plan of care and expected duration. Pain level reassessed. Patient is alert, oriented x 3, equal unlabored respirations, skin warm/dry/pink. Vital Signs: 19:48 BP 118 / 70; Pulse 78; Resp 18; Pulse Ox 100% on R/A; Weight 59.87 kg (R); sg 21:03 BP 165 / 71; Pulse 70; Resp 18; Pulse Ox 96% ; wh 22:02 BP 145 / 93; Pulse 72; Resp 18; Pulse Ox 96% on R/A; wh ED Course: 19:39 Patient arrived in ED. ag3 19:45 Patient has correct armband on for positive identification. Placed in gown. Bed in low wh position. Call light in reach. Side rails up X 1. Pulse ox on. NIBP on. 19:46 Cheko John MD is Attending Physician. pkl 19:47 Arm band placed on. sg 19:48 Triage completed. sg 20:12 Nura Gutierrez, CHRISTA is Primary Nurse. sg 20:42 Estelle Luu MD is Hospitalizing Provider. pkl 21:00 Inserted saline lock: 20 gauge in right antecubital area, using aseptic technique. wh Blood collected. 22:20 No provider procedures requiring assistance completed. Patient admitted, IV remains in place. Administered Medications: 21:50 Drug: NS 0.9% 1000 ml Route: IV; Rate: 100 ml/hr; Site: right antecubital; 22:22 Follow up: Response: No adverse reaction; IV Status: Completed infusion 21:51 Drug: [place] (7.5 mg-325 mg) 1 tabs Route: PO; 22:22 Follow up: Response: No adverse reaction; Pain is decreased; RASS: Alert and Calm (0) Outcome: 20:44 Decision to Hospitalize by Provider. pk 22:21 Admitted to Med/surg accompanied by tech, via wheelchair, room 222, with chart, Report called to Savanna Grewal 22:21 Condition: stable 22:21 Instructed on the need for admit. 22:23 Patient left the ED. Signatures: Nura Gutierrez RN RN sg Lam, Pin, MD MD pk Kristine, Mitch Lauren Guzman ag3 Corrections: (The following items were deleted from the chart) 22:21 21:00 Inserted saline lock: 20 gauge in right antecubital area, using aseptic technique.
[2019-06-23] MEDS ORDERED: NA CHLORIDE 0.9% 1,000 ML ONE (21:21)
[2019-06-23 21:23] LABS: Absolute Lymphocytes (CBC) 0.4 K/uL (0.7-4.9); Basophils % 0.8 % (0-1.3); Hematocrit 37.2 % (36.0-45.0); Lymphocytes % 14.7 % (15.3-44.8); MPV 9.5 fL (7.6-11.3); RBC Red Blood Cell Count 4.18 M/uL (3.86-4.86)
[2019-06-23 21:37] LABS: Potassium 4.2 mmol/L (3.5-5.1)
[2019-06-23 21:40] LABS: Blood Morphology Comment NOT SEEN (NOT SEEN); Platelet Estimate DECR; Urine White Blood Cell Casts OK
[2019-06-23] MEDS ORDERED: ACETAMINOPHEN 500 MG TAB PO PRN (21:40)
[2019-06-23] MEDS ORDERED: ONDANSETRON 4 MG/2 ML VIAL IV PRN (21:40)
[2019-06-23] MEDS ORDERED: HYDROCODONE/APAP 7.5/325 MG TAB ONE (21:44)
[2019-06-23] MEDS ORDERED: NA CHLORIDE 0.9% 1,000 ML IV SCH (22:00)
[2019-06-23 22:56] VITALS: O2SAT 96
[2019-06-23 23:28] VITALS: BMI 19.5
[2019-06-23] MEDS: MORPHINE 2 MG/ML SYR IV PRN (23:29)
[2019-06-24] MEDS ORDERED: NA CHLORIDE 0.9% 100 ML ONE (00:10)
[2019-06-24] MEDS ORDERED: ACYCLOVIR NA 500 MG/VIAL IVPB ONE (00:15)
[2019-06-24] MEDS: ACYCLOVIR INJ 400 MG in NA CHLORIDE 0.9% 100 ML IVPB SCH ×2 (01:00→09:33)
[2019-06-24] MEDS: MORPHINE 2 MG/ML SYR IV PRN (03:10)
[2019-06-24 06:10] LABS: Absolute Lymphocytes (CBC) 0.6 K/uL (0.7-4.9); Hematocrit 34.8 % (36.0-45.0); Lymphocytes % 20.4 % (15.3-44.8); MPV 9.6 fL (7.6-11.3)
[2019-06-24 06:22] LABS: Albumin 3.6 g/dL (3.4-5.0); Bilirubin Total 0.6 mg/dL (0.2-1.0); Potassium 4.4 mmol/L (3.5-5.1); Protein, Total 7.2 g/dL (6.4-8.2)
[2019-06-24] MEDS ORDERED: HYDROMORPHONE HCL 0.5 MG/0.5 ML INJ IV PRN (06:39)
[2019-06-24] MEDS ORDERED: TRAMADOL HCL 50 MG TAB PO PRN (06:45)
[2019-06-24] MEDS ORDERED: HYDROCODONE/APAP 7.5/325 MG TAB PO PRN (06:45)
[2019-06-24] MEDS ORDERED: VANCOMYCIN 1 GM in NA CHLORIDE 0.9% 500 ML IVPB ONE (06:48)
--- NOTE | 2019-06-24 07:02 | P.HP ---
Certification for Inpatient Patient admitted to: Inpatient With expected LOS: >2 Midnights Patient will require the following post-hospital care: None Practitioner: I am a practitioner with admitting privileges, knowledge of patient current condition, hospital course, and medical plan of care. Services: Services provided to patient in accordance with Admission requirements found in Title 42 Section 412.3 of the Code of Federal Regulations Patient History Date of Service: 06/23/19 Reason for admission: Shingles of the face History of Present Illness: The patient is a 68-year-old female was admitted hospital with shingles to the face. The patient went to [facility] ER a few days ago and initially a history of inner ear infection. She did not have scar or rash that time but was just having some discomfort. This was diagnosed by her PCP initially as well. She started noticing that she started having a rash and pain throughout the right side of her face. The pain became more severe and the rash became more prominent. She noticed some blisters inside her mouth she went back to the [facility]. At that time she was told she had shingles to the face with a possible secondary bacterial infection. She went to see her PCP who also felt that she had the shingles. Both of the right large toe related to the hospital she probably needed intravenous treatment. She does have all branches of the trigeminal nerve involved. She is having some discomfort on the right lateral eye as well as her right ear. We started her on IV acyclovir. Patient does take Humira. We lowered her immune system. She probably would benefit from the shingles vaccine. At this time will continue with aggressive therapy in hospital and we will monitor this closely. Allergies Penicillins Allergy (Verified 06/24/19 01:42) Hives/Rash Home Medications: Gabapentin [Neurontin*] 100 mg PO TID PRN #30 cap 06/24/19 Ibuprofen 400 mg PO TID PRN #30 tablet 06/24/19 Metoprolol Tartrate [Lopressor*] 50 mg PO BID 06/24/19 Valacyclovir HCl [Valtrex] 1,000 mg PO BID #20 tablet 06/24/19 traMADol HCL [Ultram*] 50 mg PO TID PRN #20 tab 06/24/19 - Past Medical/Surgical History Has patient received pneumonia vaccine in the past: Yes Diabetic: No -: lymphoma -: cervical Ca -: bladder Ca -: HTN -: right foot sx -: right rotator cap sx - Family History Father Medical History: Heart disease Mother Medical History: Heart disease, Hypertension - Social History Smoking Status: Former smoker Alcohol use: Yes CD- Drugs: No Caffeine use: Yes Place of Residence: Home Review of Systems 10-point ROS is otherwise unremarkable Physical Examination - Vital Signs Temperature: 97.9 F Blood Pressure: 168/73 Pulse: 79 Respirations: 18 Pulse Ox (%): 100 - Physical Exam General: Alert, In no apparent distress, Oriented x3 HEENT: Atraumatic, PERRLA, Other (Ulceration to the right side upper mucous membranes; TMs with some ulceration inside the ear canal), EOMI, Sclerae nonicteric Neck: Supple, 2+ carotid pulse no bruit, No LAD, Without JVD or thyroid abnormality Respiratory: Clear to auscultation bilaterally, Normal air movement Cardiovascular: Regular rate/rhythm, Normal S1 S2 Gastrointestinal: Normal bowel sounds, Soft and benign, Non-distended, No tenderness Musculoskeletal: No clubbing, No swelling, No tenderness Integumentary: Skin lesion, Tenderness/swelling, Erythema, Other Neurological: Normal gait, Normal speech, Normal strength at 5/5 x4 extr, Normal tone, Normal affect, Abnormal cranial nerve function Lymphatics: No axilla or inguinal lymphadenopathy - Studies Laboratory Data (last 24 hrs) 06/23/19 21:10: Sodium 139, Potassium 4.2, BUN 18, Creatinine 1.20, Glucose 142 H 06/23/19 21:10: WBC 2.6 L, Hgb 12.6, Hct 37.2, Plt Count 120 L Assessment & Plan - Problems (Diagnosis) (1) Trigeminal neuralgia Status: Acute (2) History of immunocompromised state Status: Acute - Plan PLAN: 1. Acyclovir IVPB q8h 2. Neuropathic medication 3. Pain control 4. Monitor for secondary cellulitis 5. GI/DVT prophylaxis - Advance Directives Does patient have a Living Will: No Does patient have a Durable POA for Healthcare: Yes - Code Status/Comfort Care Code Status Assessed: Yes Code Status: Full Code Critical Care: No Time Spent Managing PTS Care (In Minutes): 45
[2019-06-24] MEDS ORDERED: VANCOMYCIN/NS 1 gm 1 GM/250 ML BAG IV ONE (07:30)
[2019-06-24 08:44] LABS: Blood Morphology Comment NOT SEEN (NOT SEEN); Platelet Estimate DECR
--- NOTE | 2019-06-24 08:52 | P.DS ---
Admission Date: 06/23/19 Discharge Date: 06/24/19 Primary Care Provider: Dr. Triana Discharge Condition: GOOD Reason for Admission: Shingles of the face Consultations: Infectious Disease-Dr. Alston Procedures: none Medical Problem List: Right-sided facial shingles with neuropathy Acute renal injury likely from dehydration Hypertension Brief History of Present Illness: 68-year-old female presented to the emergency room with right-sided shingles. She had been seen by her PCP, [facility] for possible urine infection. She went to see her PCP yesterday and diagnosed with shingles. She came to the ER due to increasing pain. Patient was admitted for observation. Hospital Course: Patient presented with right facial shingles. Patient had severe pain likely related to neuropathy. Unilateral vesicular eruption noted to lower dermatome distribution of the face. IV acyclovir given. No evidence of secondary cellulitis noted at this time. Neurontin started for pain control. Patient was hydrated with IV fluids due to acute renal injury related to dehydration. Mild thrombocytopenia noted likely from viral infection. Pro calcitonin negative. No evidence of exposure to the eye or evidence of invasion to the orbit. Patient has done well. At discharge patient will continue with Valtrex 1000 mg twice daily for 10 days. Patient will also be given Neurontin 100 mg 3 times a day for neuropathy pain. A limited supply of tramadol 50 mg 3 times a day as needed for pain will also be provided. Patient will also be provided ibuprofen 400 mg 3 times a day as needed for pain and inflammation. Recommend follow up with her PCP to further monitor and address. Patient may require further treatment of antiviral if rash persists. This can be further addressed by her PCP. Encourage oral intake. Recommend to recheck lab-CBC, BMP in 1-2 weeks to follow up this hospitalization. If pain persists patient may benefit with neurology evaluation for post herpetic neuralgia. Education on shingles and post herpetic neuralgia will be provided. Until the rash has crusted, patient's should be advised to keep the rash covered and wash hands often to prevent spread of virus to others. Patient should avoid contact with women who have not received varicella vaccine or never had chickenpox. Patient should consider varicella vaccine in the near future. Patient with hypertension. At discharge she may continue with her metoprolol 50 mg 1 pill twice daily. Recommend to maintain blood pressures less 150/80. Further adjustment can be done by her PCP. Vital Signs/Physical Exam: Temp Pulse Resp BP Pulse Ox 97.9 F 79 18 168/73 H 100 06/24/19 07:31 06/24/19 07:31 06/24/19 07:31 06/24/19 07:31 06/24/19 07:31 General: Alert, Cooperative HEENT: Atraumatic, Other (Herpetic rash to the right lower dermatome level. No invasion to orbit.) Neck: Supple, No Thyromegaly Respiratory: Clear to auscultation bilaterally, Normal air movement Cardiovascular: Normal pulses, Regular rate/rhythm Gastrointestinal: Normal bowel sounds, Soft and benign, Non-distended, No tenderness, No masses, No rebound, No guarding Musculoskeletal: No tenderness, No warmth Integumentary: Other (As above) Neurological: Normal speech, Normal strength at 5/5 x4 extr, Normal tone, Normal affect Laboratory Data at Discharge: WBC 3.1 K/uL (4.3-10.9) L D 06/24/19 05:52 Hgb 12.0 g/dL (12.0-15.0) 06/24/19 05:52 Hct 34.8 % (36.0-45.0) L 06/24/19 05:52 Plt Count 109 K/uL (152-406) L 06/24/19 05:52 Sodium 142 mmol/L (136-145) 06/24/19 05:52 Potassium 4.4 mmol/L (3.5-5.1) 06/24/19 05:52 BUN 14 mg/dL (7-18) 06/24/19 05:52 Creatinine 1.03 mg/dL (0.55-1.3) 06/24/19 05:52 Glucose 93 mg/dL (74-106) 06/24/19 05:52 Total Bilirubin 0.6 mg/dL (0.2-1.0) 06/24/19 05:52 AST 22 U/L (15-37) 06/24/19 05:52 ALT 18 U/L (12-78) 06/24/19 05:52 Alkaline Phosphatase 82 U/L (45-117) 06/24/19 05:52 Home Medications: Gabapentin [Neurontin*] 100 mg PO TID PRN #30 cap 06/24/19 Ibuprofen 400 mg PO TID PRN #30 tablet 06/24/19 Metoprolol Tartrate [Lopressor*] 50 mg PO BID 06/24/19 Valacyclovir HCl [Valtrex] 1,000 mg PO BID #20 tablet 06/24/19 traMADol HCL [Ultram*] 50 mg PO TID PRN #20 tab 06/24/19 New Medications: Gabapentin [Neurontin*] 100 mg PO TID PRN #30 cap PRN Reason: Pain Scale 2-4 (Mild) Ibuprofen 400 mg PO TID PRN #30 tablet PRN Reason: Pain Scale 2-4 (Mild) traMADol HCL [Ultram*] 50 mg PO TID PRN #20 tab PRN Reason: Pain Valacyclovir HCl [Valtrex] 1,000 mg PO BID #20 tablet Patient Discharge Instructions: 1. Follow up with PCP in 1 week to follow up this hospitalization. 2. Patient presented with right facial shingles. Patient had severe pain likely related to neuropathy. Unilateral vesicular eruption noted to lower dermatome distribution of the face. IV acyclovir given. No evidence of secondary bacterial cellulitis noted. Neurontin started for pain control. Patient was hydrated with IV fluids due to acute renal injury related to dehydration. Mild thrombocytopenia noted likely from viral infection. No evidence of exposure to the eye or evidence of invasion to the orbit. Patient has done well. At discharge patient will continue with Valtrex 1000 mg twice daily for 10 days. Patient will also be given Neurontin 100 mg 3 times a day for neuropathy pain. A limited supply of tramadol 50 mg 3 times a day as needed for pain will also be provided. Patient may also use ibuprofen 400 mg 3 times a day as needed for pain and inflammation. Recommend follow up with her PCP to further monitor and address. Patient may require further treatment of antiviral if rash persists. This can be further addressed by her PCP. Encourage oral intake. Recommend to recheck lab-CBC, BMP in 1-2 weeks to follow up this hospitalization. If pain persists patient may benefit with neurology evaluation for post herpetic neuralgia. Education on shingles and post herpetic neuralgia will be provided. Until the rash has crusted, patient' s should be advised to keep the rash covered and wash hands often to prevent spread of virus to others. Patient should avoid contact with women who have not received varicella vaccine or never had chickenpox. Patient should consider varicella vaccine in the near future. 3. Patient with hypertension. At discharge she may continue with her metoprolol 50 mg 1 pill twice daily. Recommend to maintain blood pressures less 150/80. Further adjustment can be done by her PCP. Diet: AHA Activity: Ad matthew Time spent managing pt's care (in minutes): 55
[2019-06-24] MEDS ORDERED: PREGABALIN 75 MG CAP PO SCH (09:00)
[2019-06-24] MEDS ORDERED: METOPROLOL TAR 50 MG TAB PO SCH (09:00)
[2019-06-24] MEDS ORDERED: MULTIVIT W/ MINERAL TAB PO SCH (09:00)
[2019-06-24] MEDS ORDERED: FOLIC ACID 1 MG TABLET PO SCH (09:00)
[2019-06-24] MEDS ORDERED: ASPIRIN EC 81 MG TAB PO SCH (09:00)
[2019-06-24] MEDS ORDERED: METOPROLOL TAR 25 MG TAB PO SCH (09:00)
[2019-06-24] MEDS ORDERED: GABAPENTIN 100 MG CAP PO SCH (09:00)
--- NOTE | 2019-06-24 15:02 | CON ---
History Of Present Illness: This is a 68-year-old female I was consulted for shingles. Patient was recently seen at [facility] where she was told that she has ear infection. At that time, patient did not have any rash or any blisters. Patient denies any chest pain, abdominal pain, constipation, diarrhea. Has discomfort to the right side of her face and also has some blistering lesion to the right side of her face stage 3 involving the chin area. Patient denies any problem with our vision or hearing. She was started on acyclovir. The patient does take Humira, which can decrease her immune system. We will continue acyclovir and monitor for signs of infection. Past Medical History: Lymphoma, cervical cancer, bladder cancer with radiation therapy, hypertension, right foot surgery, right rotator cuff surgery. Social History: no tobacco use and alcohol use. Family History: noncontributry. Medications: Acyclovir and pain management. Allergies: PENICILLIN. Review of Systems: A 10-point review was performed. Physical Examination: General: This is a 68-year-old female, lying in bed, not in any acute cardiopulmonary distress. Vital Signs: Temperature 99, pulse 79, respirations 16, blood pressure 186/82. HEENT: Unremarkable. Neck: Supple. Lungs: Clear to auscultation. Heart: S1, S2. Regular. Abdomen: Soft. Bowel sounds present. Extremities: No edema. Skin: Shows erythematous changes on the right side of the face and some few blistering lesion noted close to the chin, distal mandibular region. Laboratory Data: Shows WBC 3.1, hemoglobin 12, platelets are 109. Chemistry shows sodium 142, potassium 4.4, chloride 109, bicarb 28, BUN 14, creatinine 1, glucose is 93. Procalcitonin is 0.05. Micro data, no microbiology data available at this time. Assessment And Plan: 68-year-old female with shingles involving facial distribution pattern with some active lesion. We will recommend to apply Zovirax cream and continue acyclovir, total course of 7 days, can be switched to oral tablet. Pain management as per internal medicine team. Also recommend to try tramadol and Toradol for anti-inflammatory purposes for 3 days. Follow up with primary care doctor if symptoms continue or see neurologist. No need of antibiotic at this time. We will follow the patient closely. Thank you Dr. Peña for consult. NF/MODL Voice ID: [id number] Report ID: [id number] SIRIA
[2019-06-24 19:45] VITALS: BP 168/73; TEMP 97.9
[2019-06-24] MEDS ORDERED: ATORVASTATIN 10 MG TAB PO SCH (21:00)
== END 2019-06-24 12:23 | disposition home or self-care (01) ==
LOC: ER 19:36 → INTOOBSV 21:46 → ERHOLD 21:46 → 2ND 22:06
PROVIDERS: ADMIT Hospitalist; ATTEND Family Medicine
DX: B02.23 Postherpetic polyneuropathy (principal); N17.9 Acute kidney failure, unspecified; E86.0 Dehydration; I10 Essential (primary) hypertension; D69.6 Thrombocytopenia, unspecified; Z79.899 Other long term (current) drug therapy; Z85.41 Personal history of malignant neoplasm of cervix uteri; Z85.51 Personal history of malignant neoplasm of bladder; Z92.3 Personal history of irradiation; Z87.891 Personal history of nicotine dependence
CPT/HCPCS: 85025 ×2; 80048; 36415; 80053; 84145; 96360; 99285; J2270 ×2; J1170; J3370; J7030; J0133; G0378 ×2; J7040

== ENCOUNTER 2019-10-11 11:21 | Emergency (ER) | payer OTHER ==
[2019-10-11] MEDS ORDERED: DIPHENHYDRAMINE 50 MG/ML VIAL ONE (13:09)
[2019-10-11] MEDS ORDERED: FAMOTIDINE 20 MG/2 ML VIAL IV ONE (13:10)
[2019-10-11] MEDS ORDERED: NA CHLORIDE 0.9% 500 ML ONE (13:10)
[2019-10-11] MEDS ORDERED: dexAMETHasone 10 MG/ML VIAL ONE (13:10)
[2019-10-11] MEDS ORDERED: predniSONE 20 MG TAB ONE (13:10)
--- NOTE | 2019-10-11 13:37 | EDPHYS ---
Physician Documentation [facility] Name: Kitty Nicholson Age: 68 yrs Sex: Female : 1950 Arrival Date: 10/11/2019 Time: 11:22 Bed 5 Private MD: Adelso Triana ED Physician Chaz Blackman HPI: 10/10 12:53 This 68 yrs old Female presents to ER via Ambulatory with complaints of idania Allergic Reaction. 12:53 The patient presents with localized swelling, rash, redness of skin, runny nose, idania swelling of the lips. Onset: The symptoms/episode began/occurred 3 day(s) ago. Associated signs and symptoms: The patient has no apparent associated signs or symptoms. Possible causes: tequila. At home the patient or guardian has treated the symptoms with steroids, pepcid. Severity of symptoms: At their worst the symptoms were mild in the emergency department the symptoms are unchanged. The patient has experienced a previous episode, approximately 3 days ago. Historical: - Allergies: 11:51 PENICILLINS; hb - PMHx: 11:51 Bladder cancer; cervical cancer; Hypertension; LYMPHOMA; hb - Immunization history:: Adult Immunizations up to date. - Social history:: Smoking status: Patient denies any tobacco usage or history of. - Family history:: not pertinent. ROS: 12:53 Constitutional: Negative for fever, chills, and weight loss, Eyes: Negative for injury, idania pain, redness, and discharge, Neck: Negative for injury, pain, and swelling, Cardiovascular: Negative for chest pain, palpitations, and edema, Respiratory: Negative for shortness of breath, cough, wheezing, and pleuritic chest pain, Abdomen/GI: Negative for abdominal pain, nausea, vomiting, diarrhea, and constipation, Back: Negative for injury and pain, : Negative for injury, bleeding, discharge, and swelling, MS/Extremity: Negative for injury and deformity, Neuro: Negative for headache, weakness, numbness, tingling, and seizure, Psych: Negative for depression, anxiety, suicide ideation, homicidal ideation, and hallucinations, Allergy/Immunology: Negative for hives, rash, and allergies, Endocrine: Negative for neck swelling, polydipsia, polyuria, polyphagia, and marked weight changes, Hematologic/Lymphatic: Negative for swollen nodes, abnormal bleeding, and unusual bruising. 12:53 ENT: Positive for of the mouth, rhinorrhea. 12:53 Skin: Positive for rash. Exam: 12:53 Constitutional: This is a well developed, well nourished patient who is awake, alert, idania and in no acute distress. Eyes: Pupils equal round and reactive to light, extra-ocular motions intact. Lids and lashes normal. Conjunctiva and sclera are non-icteric and not injected. Cornea within normal limits. Periorbital areas with no swelling, redness, or edema. ENT: Nares patent. No nasal discharge, no septal abnormalities noted. Tympanic membranes are normal and external auditory canals are clear. Oropharynx with no redness, swelling, or masses, exudates, or evidence of obstruction, uvula midline. Mucous membranes moist. Neck: Trachea midline, no thyromegaly or masses palpated, and no cervical lymphadenopathy. Supple, full range of motion without nuchal rigidity, or vertebral point tenderness. No Meningismus. Chest/axilla: Normal chest wall appearance and motion. Nontender with no deformity. No lesions are appreciated. Cardiovascular: Regular rate and rhythm with a normal S1 and S2. No gallops, murmurs, or rubs. Normal PMI, no JVD. No pulse deficits. Respiratory: Lungs have equal breath sounds bilaterally, clear to auscultation and percussion. No rales, rhonchi or wheezes noted. No increased work of breathing, no retractions or nasal flaring. Abdomen/GI: Soft, non-tender, with normal bowel sounds. No distension or tympany. No guarding or rebound. No evidence of tenderness throughout. Back: No spinal tenderness. No costovertebral tenderness. Full range of motion. Skin: Warm, dry with normal turgor. Normal color with no rashes, no lesions, and no evidence of cellulitis. MS/ Extremity: Pulses equal, no cyanosis. Neurovascular intact. Full, normal range of motion. Neuro: Awake and alert, GCS 15, oriented to person, place, time, and situation. Cranial nerves II-XII grossly intact. Motor strength 5/5 in all extremities. Sensory grossly intact. Cerebellar exam normal. Normal gait. Psych: Awake, alert, with orientation to person, place and time. Behavior, mood, and affect are within normal limits. 12:53 Head/face: Noted is swelling, that is mild, of the mouth. Vital Signs: 11:45 BP 189 / 98; Pulse 81; Resp 16; Temp 98.3; Pulse Ox 100% on R/A; Weight 51.71 kg; hb Height 5 ft. 6 in. (167.64 cm); Pain 5/10; 13:23 BP 186 / 81; Pulse 55; Resp 18; Pulse Ox 97% on R/A; em 14:44 BP 158 / 97; Pulse 56; Resp 16; Pulse Ox 100% on R/A; em 11:45 Body Mass Index 18.40 (51.71 kg, 167.64 cm) hb MDM: 12:45 Patient medically screened. [facility] 12:57 Data reviewed: vital signs, nurses notes, lab test result(s), CBC, electrolytes. [facility] 10/10 12:52 Order name: CBC with Diff [facility] 10/10 12:52 Order name: Comprehensive Metabolic Panel idania Administered Medications: 13:32 Drug: predniSONE 20 mg Route: PO; em 14:32 Follow up: Response: No adverse reaction em 13:33 Not Given (Duplicate Order): Decadron - Dexamethasone 10 mg IVP once idania 13:33 Not Given (Duplicate Order): Pepcid 20 mg IVP once idania 13:33 Not Given (Duplicate Order): Benadryl 25 mg IVP once idania 13:40 Drug: NS 0.9% 500 ml Route: IV; Rate: bolus; Site: left antecubital; em 14:32 Follow up: IV Status: Completed infusion; IV Intake: 500ml em 13:40 Drug: Benadryl 25 mg Route: IVP; Site: left antecubital; em 14:32 Follow up: Response: No adverse reaction em 13:42 Drug: Decadron - Dexamethasone 10 mg Route: IVP; Site: left antecubital; em 14:32 Follow up: Response: No adverse reaction em 13:44 Drug: Pepcid 20 mg Route: IVP; Site: left antecubital; em 14:32 Follow up: Response: No adverse reaction em 13:46 Not Given (Other Intervention Used): Decadron 10 mg IM once em 13:46 Not Given (Other Intervention Used): Benadryl 25 mg PO once em 13:46 Not Given (Other Intervention Used): Pepcid 20 mg PO once em Disposition: 10/11/19 13:37 Discharged to Home. Impression: Angioneurotic edema. - Condition is Stable. - Discharge Instructions: Hives, Angioedema, Angioedema, [id number], Hives, [id number]. - Prescriptions for Benadryl 25 mg Oral Capsule - take 1 capsule by ORAL route every 6 hours As needed; 30 tablet. Pepcid 20 mg Oral Tablet - take 1 tablet by ORAL route every 12 hours for 10 days; 20 tablet. Prednisone 20 mg Oral Tablet - take 2 tablet by ORAL route once daily for 5 days; 10 tablet. EpiPen 0.3 mg Injection auto- injector - inject 1 pen by INTRAMUSCULAR route one time Inject into the outer portion of the thigh, through clothing if necessary. Indicated in the emergency treatment of allergic reactions; 1 Container. - Medication Reconciliation Form, Thank You Letter, Antibiotic Education, Prescription Opioid Use form. - Follow up: Adelso Triana MD; When: 2 - 3 days; Reason: Recheck today's complaints, Continuance of care, Re-evaluation by your physician. - Problem is new. - Symptoms have improved. Signatures: Dispatcher [employer] EDSD Chaz Blackman MD MD cha Munoz, Edgar, RN RN Moira Rankin RN RN Corrections: (The following items were deleted from the chart) 14:52 13:37 10/11/2019 13:37 Discharged to Home. Impression: Urinary tract infection, site em not specified; Angioneurotic edema. Condition is Stable. Forms are Medication Reconciliation Form, Thank You Letter, Antibiotic Education, Prescription Opioid Use. Follow up: Adelso Triana; When: 2 - 3 days; Reason: Recheck today's complaints, Continuance of care, Re-evaluation by your physician. Problem is new. Symptoms have improved. idania 15:17 14:52 10/11/2019 13:37 Discharged to Home. Impression: Urinary tract infection, site idania not specified; Angioneurotic edema. Condition is Stable. Discharge Instructions: Hives, Angioedema, Angioedema, Efxt-[id number], Hives, Smhh-or-Kylw. Prescriptions for Benadryl 25 mg Oral Capsule - take 1 capsule by ORAL route every 6 hours As needed; 30 tablet, Pepcid 20 mg Oral Tablet - take 1 tablet by ORAL route every 12 hours for 10 days; 20 tablet, Prednisone 20 mg Oral Tablet - take 2 tablet by ORAL route once daily for 5 days; 10 tablet, EpiPen 0.3 mg Injection auto-injector - inject 1 pen by INTRAMUSCULAR route one time Inject into the outer portion of the thigh, through clothing if necessary. Indicated in the emergency treatment of allergic reactions; 1 Container. and Forms are Medication Reconciliation Form, Thank You Letter, Antibiotic Education, Prescription Opioid Use. Follow up: Adelso Triana; When: 2 - 3 days; Reason: Recheck today's complaints, Continuance of care, Re-evaluation by your physician. Problem is new. Symptoms have improved. em 15:21 15:17 10/11/2019 13:37 Discharged to Home. Impression: Angioneurotic edema. Condition em is Stable. Discharge Instructions: Hives, Angioedema, Angioedema, [id number]-zb-Udtc, Hives, Sbdr-av-Xcan. Prescriptions for Benadryl 25 mg Oral Capsule - take 1 capsule by ORAL route every 6 hours As needed; 30 tablet, Pepcid 20 mg Oral Tablet - take 1 tablet by ORAL route every 12 hours for 10 days; 20 tablet, Prednisone 20 mg Oral Tablet - take 2 tablet by ORAL route once daily for 5 days; 10 tablet, EpiPen 0.3 mg Injection auto-injector - inject 1 pen by INTRAMUSCULAR route one time Inject into the outer portion of the thigh, through clothing if necessary. Indicated in the emergency treatment of allergic reactions; 1 Container. and Forms are Medication Reconciliation Form, Thank You Letter, Antibiotic Education, Prescription Opioid Use. Follow up: Adelso Triana; When: 2 - 3 days; Reason: Recheck today's complaints, Continuance of care, Re-evaluation by your physician. Problem is new. Symptoms have improved. idania
--- NOTE | 2019-10-11 13:37 | ER ---
Nurse's Notes [facility] Name: Kitty Nicholson Age: 68 yrs Sex: Female : 1950 Arrival Date: 10/11/2019 Time: 11:22 Bed 5 Private MD: Adelso Triana Diagnosis: Angioneurotic edema Presentation: 10/10 11:45 Chief complaint: Facial redness and mild SOB upon waking today. Seen at [facility] on Thursday for allergic reaction to tequila, had throat swelling and SOB, on methylprednisolone and famotidine day 3. Coronavirus screen: Proceed with normal triage. Ebola Screen: No symptoms or risks identified at this time. Onset: The symptoms/episode began/occurred 3 day(s) ago. Anaphylaxis evaluation, no signs or symptoms of anaphylaxis were noted. Initial Sepsis Screen: Does the patient meet any 2 criteria? No. Patient's initial sepsis screen is negative. Does the patient have a suspected source of infection? No. Patient's initial sepsis screen is negative. Risk Assessment: Do you want to hurt yourself or someone else? Patient reports no desire to harm self or others. Onset of symptoms was October 09, 2019. 11:45 Method Of Arrival: Ambulatory hb 11:45 Acuity: JEAN CLAUDE 3 hb Historical: - Allergies: 11:51 PENICILLINS; hb - PMHx: 11:51 Bladder cancer; cervical cancer; Hypertension; LYMPHOMA; hb - Immunization history:: Adult Immunizations up to date. - Social history:: Smoking status: Patient denies any tobacco usage or history of. - Family history:: not pertinent. Screenin:23 Abuse screen: Denies threats or abuse. Nutritional screening: No deficits noted. em Tuberculosis screening: No symptoms or risk factors identified. Fall Risk None identified. Assessment: 13:00 General: Appears in no apparent distress. comfortable, Behavior is calm, cooperative, em appropriate for age. Pain: Denies pain. Neuro: Level of Consciousness is awake, alert, obeys commands, Oriented to person, place, time, situation, Appropriate for age. Cardiovascular: Denies chest pain, shortness of breath, Capillary refill < 3 seconds Patient's skin is warm and dry. Respiratory: Airway is patent Respiratory effort is even, unlabored, Respiratory pattern is regular, symmetrical, Breath sounds are clear bilaterally. Denies shortness of breath labored breathing. GI: Abdomen is flat. EENT: swelling noted to the top lip. Derm: Skin is intact, is fragile, is thin, Skin is pink, warm \T\ dry. Musculoskeletal: Capillary refill < 3 seconds, Range of motion: intact in all extremities. 14:00 Reassessment: Patient appears in no apparent distress at this time. Patient and/or em family updated on plan of care and expected duration. Pain level reassessed. Patient is alert, oriented x 3, equal unlabored respirations, skin warm/dry/pink. Vital Signs: 11:45 BP 189 / 98; Pulse 81; Resp 16; Temp 98.3; Pulse Ox 100% on R/A; Weight 51.71 kg; hb Height 5 ft. 6 in. (167.64 cm); Pain 5/10; 13:23 BP 186 / 81; Pulse 55; Resp 18; Pulse Ox 97% on R/A; em 14:44 BP 158 / 97; Pulse 56; Resp 16; Pulse Ox 100% on R/A; em 11:45 Body Mass Index 18.40 (51.71 kg, 167.64 cm) hb ED Course: 11:22 Patient arrived in ED. as 11:22 Adelso Triana MD is Private Physician. as 11:51 Triage completed. hb 11:51 Arm band placed on. hb 12:37 Adams Payton RN is Primary Nurse. em 12:45 Chaz Blackman MD is Attending Physician. idania 13:23 Patient has correct armband on for positive identification. Placed in gown. Bed in low em position. Call light in reach. Side rails up X2. Pulse ox on. NIBP on. 13:35 Adelso Triana MD is Referral Physician. idania 14:44 No provider procedures requiring assistance completed. IV discontinued, intact, em bleeding controlled, No redness/swelling at site. Pressure dressing applied. 14:54 Primary Nurse role handed off by Adams Payton RN eb Administered Medications: 13:32 Drug: predniSONE 20 mg Route: PO; em 14:32 Follow up: Response: No adverse reaction em 13:33 Not Given (Duplicate Order): Decadron - Dexamethasone 10 mg IVP once idania 13:33 Not Given (Duplicate Order): Pepcid 20 mg IVP once idania 13:33 Not Given (Duplicate Order): Benadryl 25 mg IVP once idania 13:40 Drug: NS 0.9% 500 ml Route: IV; Rate: bolus; Site: left antecubital; em 14:32 Follow up: IV Status: Completed infusion; IV Intake: 500ml em 13:40 Drug: Benadryl 25 mg Route: IVP; Site: left antecubital; em 14:32 Follow up: Response: No adverse reaction em 13:42 Drug: Decadron - Dexamethasone 10 mg Route: IVP; Site: left antecubital; em 14:32 Follow up: Response: No adverse reaction em 13:44 Drug: Pepcid 20 mg Route: IVP; Site: left antecubital; em 14:32 Follow up: Response: No adverse reaction em 13:46 Not Given (Other Intervention Used): Decadron 10 mg IM once em 13:46 Not Given (Other Intervention Used): Benadryl 25 mg PO once em 13:46 Not Given (Other Intervention Used): Pepcid 20 mg PO once em Intake: 14:32 IV: 500ml; Total: 500ml. em Outcome: 13:37 Discharge ordered by . [facility] 14:45 Discharged to home ambulatory. em 14:45 Condition: good 14:45 Discharge instructions given to patient, Instructed on discharge instructions, follow up and referral plans. medication usage, Demonstrated understanding of instructions, follow-up care, medications, Prescriptions given X 4. 14:52 Patient left the ED. em 15:21 Patient left the ED. em Signatures: Chaz Blackman MD MD cha Munoz, Edgar RN Bernie Nam Heather, RN RN Anna Shields Corrections: (The following items were deleted from the chart) 11:52 11:45 BP 131 / 98; Pulse 81bpm; Resp 16bpm; Pulse Ox 100% RA; Temp 98.3F; 51.71 kg; hb Height 5 ft. 6 in.; BMI: 18.4; Pain 5/10; hb
--- OUTSIDE RECORDS SUMMARY | 2019-10-11 13:45 | XMS REPORT | Clinical Summary ---
:1950 Author Organization [facility] Address [address] [place] [address] Care Team Providers Name Role Phone Adelso Triana MD Primary Care Provider Allergies Active Allergy Reactions Severity Noted Date Comments Penicillins Other (See Comments) High 06/20/2019 Unknown reaction Medications Medication Sig Dispensed Refills Start Date End Date Status metoprolol Take 50 mg by 0 Activ e tartrate mouth 2 (two) (LOPRESSOR) 50 mg times a day. tablet azithromycin Take first 2 6 tablet 0 06/20/2019 Exp ired (ZITHROMAX) 250 MG tablets 0 tablet together, then 1 every day until finished. cetirizine-pseudoe Take 1 tablet 10 tablet 0 06/20/2019 pHEDrine by mouth 2 0 (ZyrTEC-D) 5-120 (two) times a mg per 12 hr day for 5 tablet days. guaiFENesin Take 1 tablet 5 tablet 0 06/20/2019 Exp ired (MUCINEX) 600 mg (600 mg 0 tablet extended total) by release 12hr mouth daily for 5 days. fluconazole Take 1 tablet 1 tablet 0 06/20/2019 Exp ired (DIFLUCAN) 150 MG (150 mg 0 tablet total) by mouth once as needed (yeast infection) for up to 1 dose. valACYclovir Take 1 tablet 90 tablet 0 06/23/2019 Di scontinued (VALTREX) 1000 MG (1,000 mg 0 (R eorder) tablet total) by mouth 3 (three) times a day for 30 days. predniSONE Take 1 tablet 7 tablet 0 06/23/2019 Disc ontinued (DELTASONE) 50 mg (50 mg total) 0 (Reorder) tablet by mouth daily for 7 days. acetaminophen-code Take 1-2 15 tablet 0 06/23/2019 ine (TYLENOL WITH tablets by 0 CODEINE #3) 300-30 mouth every 6 mg per (six) hours tabletIndications: as needed for acute pain moderate pain for up to 7 days .acute pain. valACYclovir Take 1 tablet 21 tablet 0 06/23/2019 Ex pired (VALTREX) 1000 MG (1,000 mg 0 tablet total) by mouth 3 (three) times a day for 7 days. predniSONE Take 1 tablet 7 tablet 0 06/23/2019 Expi red (DELTASONE) 50 mg (50 mg total) 0 tablet by mouth daily for 7 days. Active Problems Not on file Encounters Date Type Specialty Care Team Description 06/23/2019 Emergency Emergency Medicine Annie Stovall Gaffney auricular syndrome (Primary Dx); MD Tang Herpes zoster w ith other complication 06/20/2019 Emergency Emergency Medicine Angelika Claudio Acute mi ddle ear MD Sangeeta effusion, right (Primary Dx) after 10/10/2018 Social History Tobacco Use Types Packs/Day Years Used Date Never Smoker Smokeless Tobacco: Never Used Alcohol Use Drinks/Week oz/Week Comments Yes Sex Assigned at Date Recorded Not on file Job Start Date Occupation Industry Not on file Not on file Not on file Travel History Travel Start Travel End No recent travel history available. Last Filed Vital Signs Vital Sign Reading Time Taken Comments Blood Pressure 176/75 06/23/2019 10:15 AM [employer] Pulse 73 06/23/2019 10:15 AM [employer] Temperature 37.4 C (99.3 F) 06/23/2019 10:15 AM [employer] Respiratory Rate 16 06/23/2019 10:15 AM [employer] Oxygen Saturation 95% 06/23/2019 10:15 AM [employer] Inhaled Oxygen Concentration - - Weight 54.4 kg (120 lb) 06/23/2019 10:17 AM [employer] Height 167.6 cm (5' 6") 06/23/2019 10:17 AM [employer] Body Mass Index 19.37 06/23/2019 10:17 AM [employer] Plan of Treatment Not on file Results Not on fileafter 10/10/2018 Insurance Payer Benefit Plan / Subscriber ID Effective Dates Phone Addre ss Type Group HUMANA MEDICARE HUMANA MEDICARE xxxxxxxxx 2018-Present PPO PPO/PFFS/ERS 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
--- OUTSIDE RECORDS SUMMARY | 2019-10-11 13:46 | XMS REPORT | Continuity of Care Document ---
:1950 Author Organization [facility] t Address [address] [place] [address] Care Team Providers Name Role Phone Kamilah PEPE Primary Care Physician Clifford Triana MD Attending Clinician Provider, Urgent Care Attending Clinician Unavailable Doctor Unassigned, Name Attending Clinician Unavailable Tang Stovall MD Attending Clinician Sangeeta Claudio MD Attending Clinician Payers Payer Name Policy Type Policy Number Effective Date Expiration Source Date HUMANA xxxxxxxxx 2018 [place] MEDICAREHUMANA 00:00:00 [facility]-PresentPPO Problems This patient has no known problems. Allergies, Adverse Reactions, Alerts Allergy Allergy Status Severity Reaction(s) Onset Inactive Treating Comm ents Source Name Type Date Date Clinician Penicill Propensi Active Other (See Unknown [place] ins ty to Comments) 2-24 reaction Metho di adverse 00:00: st reaction 00 s to drug Social History Social Habit Start Date Stop Date Quantity Comments Source Sex Assigned At [place] [facility] Alcohol intake 2019-06-20 2019-06-20 Current drinker [place] [facility] 00:00:00 00:00:00 of alcohol (finding) Smoking Status Start Date Stop Date Source Never smoker [place] Balbinais cyndi Medications Ordered Filled Start Stop Current Ordering Indication Dosage Frequency Signature Comments Components Source Medication Medication Date Date Medication? Clinician (SIG) Name Name acetaminoph 2020- No acute pain 1{tbl} Q6H Take 1-2 [place] en-codeine 06-23 tablets by N[place] jenn (TYLENOL 00:00: 23:[address] WITH 00 :00 every 6 CODEINE #3) (six) 300-30 mg hours as per tablet needed for moderate pain for up to 7 days .acute pain. valACYclovi 2019-0 2020- No 1000mg [id number] Take 1 [place] r (VALTREX) 06-23 [id number] tablet Methodi 1000 MG 00:00: 23:59 3D (1,[address] tablet 00 :00 total) by mouth 3 (three) times a day for 7 days. predniSONE 2020- No 50mg QD Take 1 [place] (DELTASONE) 06-23 tablet (50 M ethodi 50 mg 00:00: 23:59 mg total) st tablet 00 :00 by mouth daily for 7 days. valACYclovi 2019- 2020- No 1000mg [id number] Take 1 [place] (VALTREX) 06-23 [id number] tablet Methodi 1000 MG 00:00: 00:00 3D (1,[address] tablet 00 :00 total) by mouth 3 (three) times a day for 30 days. predniSONE 2019- 2020- No 50mg QD Take 1 [place] (DELTASONE) 06-23 tablet (50 M ethodi 50 mg 00:00: 00:00 mg total) st tablet 00 :00 by mouth daily for 7 days. metoprolol 2019-0 Yes 50mg Q.5D Take 50 mg [place] tartrate 2-24 by mouth 2 Metho di (LOPRESSOR) 17:19: (two) st 50 mg 58 times a tablet day. fluconazole 2019- 2020- No 150mg Take 1 [place] (DIFLUCAN) 06-20 tablet Method i 150 MG 00:00: 23:59 ([address] tablet 00 :00 total) by mouth once as needed (yeast infection) for up to 1 dose. cetirizine- 2020- No 1{tbl} Q.5D Take 1 [place] pseudoepHED 06-[facility] (ZyrTEC-D) 00 :00 (two) 5-120 mg times a per 12 hr day for 5 tablet days. guaiFENesin 2019- No 600mg QD Take 1 Ho [place] (MUCINEX) 06-20 tablet Methodi 600 mg 00:00: 23:59 ([address] tablet 00 :00 total) by extended mouth release daily for 12hr 5 days. azithromyci 2019- No Take first Peralta n 06-20 2 tablets Methodi (ZITHROMAX) 00:00: 23:59 together, st 250 MG 00 :00 then 1 tablet every day until finished. Vital Signs Vital Name Observation Time Observation Value Comments Source Body height 2019-06-23 10:17:00 167.6 cm [place] [facility] Body weight 2019-06-23 10:17:00 54.432 kg [place] [facility] BMI 2019-06-23 10:17:00 19.37 kg/m2 [facility] Systolic blood 2019-06-23 10:15:16 176 mm[Hg] [place] [facility] pressure Diastolic blood 2019-06-23 10:15:16 75 mm[Hg] [place] [facility] pressure Heart rate 2019-06-23 10:15:16 73 /min [facility] Body temperature 2019-06-23 10:15:16 37.39 [place] [facility] Respiratory rate 2019-06-23 10:15:16 16 /min [place] [facility] Oxygen saturation in 2019-06-23 10:15:16 95 /min [facility] Arterial blood by Pulse oximetry Procedures This patient has no known procedures. Encounters Start End Encounter Admission Attending Care Care Encounter Source Date/Time Date/Time Type Type Clinicians Facility Department ID 2019-09-21 2019-09-21 [facility] [id number] 00:00:00 00:00:00 [facility] [id number] [facility] [id number] Professio [id number] nal 044 [address] One 2019-09-21 2019-09-21 [facility] [id number] 00:00:00 00:00:00 [facility] [id number] [facility] [id number] Professio [id number] nal 044 [address] One 2019-09-08 2019-09-08 Urgent Provider, [facility] [id number] 09:18:26 10:15:27 Care [facility] [id number] Care [place] [id number] Es [id number] nal 044 Office [address] One 2019-08-15 2019-08-15 Patient Doctor LIBRADO [id number] 00:00:00 00:00:00 Secure Msg Unassigned, [place] [id number] [id number] 2019-06-23 2019-06-23 Emergency MARIS [facility] 064 [id number] [place] 00:00:00 00:00:00 TALON Todd[address] Method i [facility] 2019-06-20 2019-06-20 Emergency CÉSAR, [facility] 064 [id number] [place] 00:00:00 00:00:00 SEE [address] Results This patient has no known results.
--- OUTSIDE RECORDS SUMMARY | 2019-10-11 13:46 | XMS REPORT | Summary of Care ---
:1950 Author Organization [facility] Address [address] [place] [address] Care Team Providers Name Role Phone Adelso Triana MD Primary Care Provider [phone] Reason for Visit Reason Comments Pain Encounter Details Date Type Department Care Team Description 07/26/2019 Telemedicine Visit [facility] Adelso Triana Post he rpetic neuralgia (Primary Dx); Pediatric and Adult MD Clifford Essential hypertension; Primary Care- [facility] E [facility] D R Insomnia, unspecified type; [place], [place] Diarrhea, unspecified type [address] [id number] , [address] [place], [place] [phone] (Fax) [phone] Allergies Active Allergy Reactions Severity Noted Date Comments Penicillin Unknown - See comments 06/18/2015 documented as of this encounter (statuses as of 07/26/2019) Medications Medication Sig Dispensed Refills Start Date End Date Status HUMIRA PEN 40 0 08/11/2015 Activ e mg/0.8 mL injection traMADol 50 mg Take 1 30 tablet 0 06/20/2019 Acti ve tabletIndications: tablet by Earache on right mouth every 6 (six) hours as needed (pain). gabapentin 300 mg Take 1 90 capsule 5 07/20/2019 Active capsuleIndications capsule by : Earache on mouth 3 right, Herpes (three) zoster without times daily. complication zolpidem 10 mg Take 1 30 tablet 5 07/26/2019 Acti ve tabletIndications: tablet by Insomnia, mouth at unspecified type bedtime as needed for Insomnia. diphenoxylate-atro TAKE ONE (1) 30 tablet 4 07/26/2019 Active pine 2.5-0.025 mg TABLET(S) BY per MOUTH EVERY tabletIndications: SIX HOURS Diarrhea, NEEDED FOR unspecified type DIARRHEA. metoprolol TAKE 1 180 tablet 4 07/26/2019 Active tartrate 50 mg TABLET BY tabletIndications: MOUTH TWO Essential TIMES DAILY hypertension zolpidem 10 mg Take 1 30 tablet 5 12/31/2017 Disc ontinued tabletIndications: tablet by 0 ( Reorder) Insomnia, mouth at unspecified type bedtime as needed for Insomnia. metoprolol TAKE 1 180 tablet 4 12/31/2017 Discont inued tartrate 50 mg TABLET BY 0 (Reor juan) tabletIndications: MOUTH TWO Essential TIMES DAILY hypertension DIPHENOXYLATE-ATRO TAKE ONE (1) 30 tablet 4 07/02/2018 02 Discontinued PINE 2.5-0.025 mg TABLET(S) BY 0 (Reorder) per MOUTH EVERY tabletIndications: SIX HOURS Diarrhea, NEEDED FOR unspecified type DIARRHEA. valACYclovir Take 1 g by 0 Disco ntinued (VALTREX) 1 gram mouth 3 0 tablet (three) times daily. 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 Communication with patient was conducted via Telephone. Location of Patient: Home Location of Provider: Office Date of Service: 07/26/2019 Patient refuses to do video conference Chief Complaint: pain right face from shingles HPI: Patient is continuing to have pain from the shingles on her right face; No help with medications so far. Past Medical History: Diagnosis Date Bladder cancer Cervical cancer Hypertension Insomnia Psoriasis Psoriatic arthritis Allergies Allergen Reactions Penicillin Unknown - See comments Family History Problem Relation Age of Onset Coronary Heart Disease Mother Pulmonary Mother Coronary Heart Disease Father MEDICATIONS: Current Outpatient Medications Medication Sig Dispense Refill gabapentin 300 mg capsule Take 1 capsule by mouth 3 (three) times daily. 90 capsule 5 valACYclovir (VALTREX) 1 gram tablet Take 1 g by mouth 3 (three) times daily. traMADol 50 mg tablet Take 1 tablet by mouth every 6 (six) hours as needed (pain). 30 tablet 0 DIPHENOXYLATE-ATROPINE 2.5-0.025 mg per tablet TAKE ONE [...] No current facility-administered medications for this visit. ROS Review of Systems TELEHEALTH EXAM Patient is alert and communicative on the phone with no distress noted. ASSESSMENT/ PLAN 1. Post herpetic neuralgia 2. Essential hypertension metoprolol tartrate 50 mg tablet 3. Insomnia, unspecified type zolpidem 10 mg tablet 4. Diarrhea, unspecified type diphenoxylate-atropine 2.5-0.025 mg per tablet restart the gabapentin and titrate dose up to 6 a day as needed After visit summary (AVS ) documentation will be available through [facility] for this encounter. A total of 15 minutes was spent on the Telephone with the patient. Adelso Triana MD documented in this encounter Plan of Treatment [...] filedocumented in this encounter Visit Diagnoses Diagnosis Post herpetic neuralgia - Primary Herpes zoster with other nervous system complications Essential hypertension Unspecified essential hypertension Insomnia, unspecified type Diarrhea, unspecified type documented in this encounter Insurance Payer Benefit Plan Subscriber ID Effective Dates Phone Address Type / Group HUMANA - HUMANA CHOICE [id number] 2015-Presen Medicare Adv MANAGED t O MEDICARE documented as of this encounter
--- OUTSIDE RECORDS SUMMARY | 2019-10-11 13:46 | XMS REPORT | Summary of Care ---
:1950 Author Organization [facility] Address [address] [place] [address] Care Team Providers Name Role Phone Adelso Triana MD Primary Care Provider [phone] Reason for Visit Reason Comments Rx Concern/Question Encounter Details Date Type Department Care Team Description 07/14/2019 Telephone [facility] [employer] Family Adelso Triana Rx Conc ernestina/Question Medicine - Alon Horton MD [address] [place] [address] [place] [address] [place], [place] [phone] Allergies Active Allergy Reactions Severity Noted Date Comments Penicillin Unknown - See comments 06/18/2015 documented as of this encounter (statuses as of 07/15/2019) Medications Medication Sig Dispensed Refills Start Date End Date Status HUMIRA PEN 40 mg/0.8 0 08/11/2015 Active mL injection zolpidem 10 mg Take 1 tablet by 30 tablet 5 12/31/2017 Active tabletIndications: mouth at bedtime Insomnia, unspecified as needed for type Insomnia. metoprolol tartrate 50 TAKE 1 TABLET BY 180 tablet 4 8 Active mg tabletIndications: MOUTH TWO TIMES Essential [...] on right (six) hours as needed (pain). valACYclovir (VALTREX) Take 1 g by mouth 0 Active 1 gram tablet 3 (three) times daily. pregabalin (LYRICA) 75 Take 1 capsule by 60 capsule 1 07/15/19 20 Active mg capsuleIndications: mouth 2 (two) Herpes zoster without times daily. 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 Essential hypertension 08/31/2015 Bladder cancer 08/31/2015 Psoriasis 08/31/2015 Psoriatic arthritis 08/31/2015 Insomnia 08/31/2015 documented as of this encounter (statuses as of 07/15/2019) Immunizations Name Administration Dates Next Due Influenza [...] Treatment Date Type Specialty Care Team Description 08/01/2019 Office Visit Family Medicine Adelso Triana MD [address] [place] [address] [phone] Health Maintenance Due Date Last Done Comments [...] filedocumented in this encounter Visit Diagnoses Diagnosis Herpes zoster without complication - Meghan ulises documented in this encounter Insurance Payer Benefit Plan Subscriber ID Effective Dates Phone Address Type / Group HUMANA - HUMANA CHOICE [id number] 2015-Presen Medicare Adv MANAGED t O MEDICARE documented as of this encounter
--- OUTSIDE RECORDS SUMMARY | 2019-10-11 13:46 | XMS REPORT | Summary of Care ---
:1950 Author Organization [facility] Address [address] [place] [address] Care Team Providers Name Role Phone Adelso Triana MD Primary Care Provider [phone] Reason for Visit Reason Comments Rx Concern/Question Encounter Details Date Type Department Care Team Description 07/19/2019 Telephone [facility] [employer] Family Adelso Triana Rx Conc ernestina/Question Medicine - Alon Horton MD [facility] [address] [address] [address] [facility] [address] [place], [place] [phone] Allergies Active Allergy Reactions Severity Noted Date Comments Penicillin Unknown - See comments 06/18/2015 documented as of this encounter (statuses as of 07/20/2019) Medications Medication Sig Dispensed Refills Start Date End Date Status HUMIRA PEN 40 0 08/11/2015 Activ e mg/0.8 mL injection zolpidem 10 mg Take 1 30 tablet 5 12/31/2017 Acti ve tabletIndications: tablet by Insomnia, mouth at unspecified type bedtime as needed for Insomnia. metoprolol TAKE 1 180 tablet 4 12/31/2017 Active tartrate 50 mg TABLET BY tabletIndications: MOUTH TWO Essential TIMES DAILY hypertension DIPHENOXYLATE-ATRO TAKE ONE (1) 30 tablet 4 07/02/2018 Active PINE 2.5-0.025 mg TABLET(S) BY per MOUTH EVERY tabletIndications: SIX HOURS Diarrhea, NEEDED FOR unspecified type DIARRHEA. traMADol 50 mg Take 1 30 tablet 0 06/20/2019 Acti ve tabletIndications: tablet by Earache on right mouth every 6 (six) hours as needed (pain). valACYclovir Take 1 g by 0 Activ e (VALTREX) 1 gram mouth 3 tablet (three) times daily. gabapentin 300 mg Take 1 90 capsule 5 07/20/2019 Active capsuleIndications capsule by : Earache on mouth 3 right, Herpes (three) zoster without times daily. complication gabapentin 100 mg Take 1 30 capsule 5 06/17/2019 Discontinued capsuleIndications capsule by 0 (Dose adjustment) : Earache on right mouth 3 (three) times daily as needed (pain). pregabalin Take 1 60 capsule 1 07/15/2019 Discont inued (LYRICA) 75 mg capsule by 0 (Andrew e effects) capsuleIndications mouth 2 : Herpes zoster (two) times without daily. 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 Essential hypertension 08/31/2015 Bladder cancer 08/31/2015 Psoriasis 08/31/2015 Psoriatic arthritis 08/31/2015 Insomnia 08/31/2015 documented as of this encounter (statuses as of 07/20/2019) Immunizations Name Administration Dates Next Due Influenza [...] Office Visit Family Medicine Adelso Triana MD [address] [place] [phone] Health Maintenance Due Date Last Done [...] Herpes zoster without complication - Meghan ulises Earache on right Otalgia, unspecified documented in this encounter Insurance Payer Benefit Plan Subscriber ID Effective Dates Phone Address Type / Group HUMANA - HUMANA CHOICE [id number] 2015-Presen Medicare Adv MANAGED t O MEDICARE documented as of this encounter
--- OUTSIDE RECORDS SUMMARY | 2019-10-11 13:47 | XMS REPORT | Summary of Care ---
:1950 Author Organization [facility] - [facility] Address [address] [place] [address] Care Team Providers Name Role Phone Adelso Triana MD Primary Care Provider [phone] Reason for Visit Reason Comments Rx Concern/Question Encounter Details Date Type Department Care Team Description 08/05/2019 Telephone [facility] [employer] Family Adelso Triana Rx Conc ernestina/Question Medicine - Alon Horton MD [address] [place] [address] [place] [address] [place], [place] [phone] Allergies Active Allergy Reactions Severity Noted Date Comments Penicillin Unknown - See comments 06/18/2015 documented as of this encounter (statuses as of 08/05/2019) Medications Medication Sig Dispensed Refills Start Date End Date Status HUMIRA PEN 40 mg/0.8 0 08/11/2015 Active mL injection traMADol 50 mg Take 1 tablet by 30 tablet 0 06/20/2019 Active tabletIndications: mouth every 6 Earache on right (six) hours as needed (pain). gabapentin 300 mg Take 1 capsule by 90 capsule 5 07/20/2019 Active capsuleIndications: mouth 3 (three) Earache on right, times daily. Herpes zoster without complication zolpidem 10 mg Take 1 tablet by 30 tablet 5 07/26/2019 Active tabletIndications: mouth at bedtime Insomnia, unspecified as needed for type Insomnia. diphenoxylate-atropine TAKE ONE (1) 30 tablet 4 07/26/2019 Active 2.5-0.025 mg per TABLET(S) BY tabletIndications: MOUTH EVERY SIX Diarrhea, unspecified HOURS NEEDED type FOR DIARRHEA. 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
--- OUTSIDE RECORDS SUMMARY | 2019-10-11 13:47 | XMS REPORT | Summary of Care ---
:1950 Author Organization [facility] Address [address] [place] [address] Care Team Providers Name Role Phone Adelso Triana MD Primary Care Provider [phone] Reason for Visit Reason Comments Assessment Encounter Details Date Type Department Care Team Description 07/28/2019 Telephone [facility] Pediatric and Adelso Deshpande MD Assessment Adult Primary Care- [address] [place] [address] [place] [address] , [address] [place] [address] Allergies Active Allergy Reactions Severity Noted Date Comments Penicillin Unknown - See comments 06/18/2015 documented as of this encounter (statuses as of 07/28/2019) Medications Medication Sig Dispensed Refills Start Date [...] as of this encounter (statuses as of 07/28/2019) Active Problems Problem Noted Date [place] 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
--- OUTSIDE RECORDS SUMMARY | 2019-10-11 13:47 | XMS REPORT | Summary of Care ---
:1950 Author Organization [facility] - [facility] Address [address] [place] [address] Care Team Providers Name Role Phone Adelso Triana MD Primary Care Provider [phone] Reason for Visit Reason Comments Rx Concern/Question Encounter Details Date Type Department Care Team Description 07/28/2019 Telephone [facility] [employer] Family Adelso Triana Rx Conc ernestina/Question Medicine - Alon Horton MD [address] [place] [address] [place] [address] [place], [place] [phone] Allergies Active Allergy Reactions Severity Noted Date [...] of 07/28/2019) Active Problems Problem Noted Date Carmela Gaffney [...] Type / Group HUMANA - HUMANA CHOICE [id number] 2015-Presen Medicare Adv MANAGED t PPO MEDICARE documented as of this encounter
--- OUTSIDE RECORDS SUMMARY | 2019-10-11 13:47 | XMS REPORT | Summary of Care ---
:1950 Author Organization [facility] - [facility] Address [address] [place] [address] Care Team Providers Name Role Phone Adelso Triana MD Primary Care Provider [phone] Reason for Visit Reason Comments Appointment Encounter Details Date Type Department Care Team Description 07/27/2019 Telephone [facility] Pediatric and Adelso Deshpande MD Appointment Adult Primary Care- [address] [place] [address] [place] [address] , [address] [place] [phone] Allergies Active Allergy Reactions Severity Noted Date Comments Penicillin Unknown - See comments 06/18/2015 documented as of this encounter (statuses as of 07/27/2019) Medications Medication Sig Dispensed Refills Start Date [...] as of this encounter (statuses as of 07/27/2019) Active Problems Problem Noted Date [place] 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
--- OUTSIDE RECORDS SUMMARY | 2019-10-11 13:47 | XMS REPORT | Summary of Care ---
:1950 Author Organization [facility] - Health Address [address] [place] [address] Care Team Providers Name Role Phone Adelso Triana MD Primary Care Provider [phone] Encounter Details Date Type Department Care Team Description 07/28/2019 Orders Only [facility] Doctor Unassigned, No [address] [facility] [place] [address] [address] [place] [id number] Allergies Active Allergy Reactions Severity Noted Date Comments Penicillin Unknown - See comments 06/18/2015 documented as of this encounter (statuses as of 08/16/2019) Medications Medication Sig Dispensed Refills Start Date [...] as of this encounter (statuses as of 08/16/2019) Active Problems Problem Noted Date Carmela 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 Essential hypertension 08/31/2015 Bladder cancer 08/31/2015 Psoriasis 08/31/2015 Psoriatic arthritis 08/31/2015 Insomnia 08/31/2015 documented as of this encounter (statuses as of 08/16/2019) Immunizations Name Administration Dates Next Due Influenza [...] Procedures Procedure Name Priority Date/Time Associated Diagnosis Comme nts INSURANCE CORRESPONDENCE Routine 07/28/2019 12:01 AM CDT documented in this encounter Results Not on filedocumented in this encounter Insurance Payer Benefit Plan Subscriber ID Effective Dates Phone Address Type / Group HUMANA - HUMANA CHOICE [id number] 2015-Presen Medicare Adv MANAGED t PPO MEDICARE documented as of this encounter
--- OUTSIDE RECORDS SUMMARY | 2019-10-11 13:48 | XMS REPORT | Summary of Care ---
:1950 Author Organization [facility] Address [address] [place] [address] Care Team Providers Name Role Phone Adelso Triana MD Primary Care Provider [phone] Reason for Visit Reason Comments Ear Pain Rt, clear, odorless drainage x 09/07/2019 Encounter Details Date Type Department Care Team Description 09/08/2019 Urgent Care [facility] Family Bonnie Soares, SUPERVISOR [employer] [address] [address] Acute otitis externa of both ears, unspe cified type (Primary Dx); [facility] Provider, [facility] Urgent Care Essential hypertension; [facility] Reji [place] [address] Allergies Active Allergy Reactions Severity Noted Date Comments Penicillin Unknown - See comments 06/18/2015 documented as of this encounter (statuses as of 09/08/2019) Medications Medication Sig Dispensed Refills Start Date End Date Status HUMIRA PEN 40 mg/0.8 0 08/11/2015 Active mL injection traMADol 50 mg Take 1 tablet by 30 tablet 0 06/20/2019 Active tabletIndications: mouth every 6 Earache on right (six) hours as needed (pain). gabapentin 300 mg Take 1 capsule 90 capsule 5 07/20/2019 Active capsuleIndications: by mouth 3 Earache on right, (three) times Herpes zoster without daily. complication zolpidem 10 mg Take 1 tablet by 30 tablet 5 07/26/2019 Active tabletIndications: mouth at bedtime Insomnia, unspecified as needed for type Insomnia. diphenoxylate-atropin TAKE ONE (1) 30 tablet 4 07/26/2019 Active e 2.5-0.025 mg per TABLET(S) BY tabletIndications: MOUTH EVERY SIX Diarrhea, unspecified HOURS NEEDED type FOR DIARRHEA. metoprolol tartrate TAKE 1 TABLET BY 180 tablet 4 07/26/2019 Active 50 mg MOUTH TWO TIMES tabletIndications: DAILY Essential hypertension pregabalin 75 mg 0 07/15/2019 Ac tive capsule azithromycin Take 1 tablet by 6 tablet 0 09/08/2019 0 Active (ZITHROMAX Z-CAREY) 250 mouth daily for mg tabletIndications: 5 days. Take 500 Acute otitis externa mg day 1, then of both ears, 250 mg days 2 to unspecified type 5. 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 COVID-19 Exposure Response Date Recorded In the last month, have you been in contact with No / Unsure 09/08/2019 9:24 AM CDT someone who was confirmed or suspected to have Coronavirus / COVID-19? documented as of this encounter Last Filed Vital Signs Vital Sign Reading Time Taken Comments Blood Pressure 173/83 09/08/2019 10:10 AM CDT Pulse 61 09/08/2019 9:25 AM CDT Temperature 37.2 C (98.9 F) 09/08/2019 9:25 AM CDT Respiratory Rate 16 09/08/2019 9:25 AM CDT Oxygen Saturation 99% 09/08/2019 9:25 AM CDT Inhaled Oxygen Concentration - - Weight 53.3 kg (117 lb 6.4 oz) 09/08/2019 9:25 AM CDT Height 167.6 cm (5' 6") 09/08/2019 9:25 AM CDT Body Mass Index 18.95 09/08/2019 9:25 AM CDT documented in this encounter Patient Instructions Patient InstructionsSarah Soares FNP - 09/08/2019 9:20 AM CDT Patient Education External Ear Infection (Adult) External otitis (also called swimmers ear) is an infection in the ear canal. It is often caused by bacteria or fungus. It can occur a few days after water gets trapped in the ear canal (from swimming or bathing). It can also occur after cleaning too deeply in the ear canal with a cotton swab or other object. Sometimes, hair care products get into the ear canal and cause this problem. Symptoms can include pain, fever, itching, redness, drainage, or swelling of the ear canal. Temporary hearing loss may also occur. Home care Do not try to clean the ear canal. This can push pus and bacteria deeper into the canal. Use prescribed ear drops as directed. These help reduce swelling and fight the infection. If an ear wick was placed in the ear canal, apply drops right onto the end of the wick. The wick will draw the medicine into the ear canal even if it is swollen closed. A cotton ball may be loosely placed in the outer ear to absorb any drainage. You may use acetaminophen or ibuprofen to control pain, unless another medicinewas prescribed. Note: If you have chronic liver or kidney disease or ever had a stomach ulcer or GI bleeding, talk toyour healthcare provider before taking any of these medicines. Do not allow water to get into your ear when bathing. Also, don't swim until the infection has cleared. Prevention Keep your ears dry. This helps lower the risk of infection. Dry your ears with a towel or behavioral science chair after getting wet. Also, use ear plugs when swimming. Do not stick any objects in the ear to remove wax. If you feel water trapped in your ear, use ear drops right away. You can get these drops over thecounter at most drugstores. They work by removing water from the ear canal. Follow-up care Follow up with your healthcare provider in 1 week, or as advised. When to seek medical advice Call your healthcare provider right away if any of these occur: Ear pain becomes worse or doesnt improve after 3 days of treatment Redness or swelling of the outer ear occurs or gets worse Headache Painful or stiff neck Drowsiness or confusion Fever of 100.4F (38C) or higher, or as directed by your healthcare provider Ace Laguna last reviewed this educational content on 01/25/201719994375-8581 The [employer]. [address] [place] [address], [place] [address]. All rights reserved. This information is not intended as a substitute for professional medical care. Always follow your healthcare professional's instructions. Patient Education Controlling High Blood Pressure High blood pressure (hypertension) is often called the silent killer. This is because many people who have it, dont know it. It can be very dangerous. High blood pressure can raise your risk of heart attack, stroke, heart disease, and heart failure. Controlling your blood pressure can decrease yourrisk of these problems. It's important to know the appropriate blood pressure range and remember to check your blood pressure regularly. Doing so can save your life. Blood pressure measurements are given as 2 numbers. Systolic blood pressure is the upper number. This is the pressure when the heart contracts. Diastolic blood pressure is the lower number. This is thepressure when the heart relaxes between beats. Blood pressure is categorized as normal, elevated, or stage 1 or stage 2 high blood pressure: Normal blood pressure is systolic of less than 120 and diastolic of less than 80 (120/80) Elevated blood pressure is systolic of 120 to 129 and diastolic less than 80 Stage 1 high blood pressure is systolic is 130 to 139 or diastolic between 80 to 89 Stage 2 high blood pressure is when systolic is 140 or higher or the diastolic is 90 or higher A heart-healthy lifestyle can help you control your blood pressure without medicines. Here are some things you can do to pursue a heart-healthy lifestyle: Choose heart-healthy foods Select low-salt, low-fat foods. Limit sodium intake to 2,400 mg per day or the amount suggested by your healthcare provider. Limit canned, dried, cured, packaged, and fast foods. These can contain a lot of salt. Eat 8 to 10 servings of fruits and vegetables every day. Choose lean meats, fish, or chicken. Eat whole-grain pasta, brown rice, and beans. Eat 2 to 3 servings of low-fat or fat-free dairy products. Ask your doctor about the DASH eating plan. This plan helps reduce blood pressure. When you go to a restaurant, ask that your meal be prepared with no added salt. Stay at a healthy weight Ask your healthcare provider how many calories to eat a day. Then stick to that number. Ask your healthcare provider what weight range is healthiest for you. If you are overweight, a weight loss of only 3% to 5% of your body weightcan help lower blood pressure. Generally, a good weight loss goal is to lose 10% of your body weight in a year. Limit snacks and sweets. Get regular exercise. Get up and get active Find activities you enjoy that can be done alone or with friends or family. Such activities mightinclude bicycling, dancing, walking, or jogging. Park farther away from building entrances to walk more. Use stairs instead of the elevator. When you can, walk or bike instead of driving. [place] leaves, garden, or do household repairs. Be active at a moderate to vigorous level of physical activity for at least 40 minutes for a minimum of 3 to 4 days a week. Manage stress Make time to relax and enjoy life. Find time to laugh. Communicate your concerns with your loved ones and your healthcare provider. Visit with family and friends, and keep up with hobbies. Limit alcohol and quit smoking Men should have no more than 2 drinks per day. Women should have no more than 1 drink per day. Talk with your healthcare provider about quitting smoking. Smoking significantly increases your risk for heart disease and stroke. Ask your healthcare provider about community smoking cessation programs and other options. Medicines If lifestyle changes arent enough, your healthcare provider may prescribe high blood pressure medicine. Take all medicines as prescribed. If you have any questions about your medicines, ask your healthcare provider before stopping or changing them. [employer] last reviewed this educational content on 09/25/201819999063-5007 The [employer]. [address] [place] [address], [place] [address]. All rights reserved. This information is not intended as a substitute for professional medical care. Always follow your healthcare professional's instructions. documented in this encounter Progress Notes Sarah Soares FNP - 09/08/2019 9:20 AM CDT Cc: Chief Complaint Patient presents with Ear Pain Rt, clear, odorless drainage x 09/07/2019 Kitty Nicholson is a 68 year old female. Patient recently treated of Zohaib Gaffney after a shingles outbreak back in May, few weeks ago, she noticed another rash, was treated with valtrex , the rash her has subsided but in the right ears she felt some oozing yesterday thus came in for further eval. She has some sensitivity in the ear but no pain. No other associated symptoms. She has a hx of hypertension, on routine meds and compliant bu blood pressures moderately elevated today . Ear Pain Location: Right Behind ear: Swelling and redness Quality: Aching Severity: Moderate Onset quality: Gradual Duration: 1 day Timing: Constant Progression: Unchanged Chronicity: New Context comment: Post shingles treatment Relieved by: Nothing Ineffective treatments: None tried Associated symptoms: no cough Allergies Kitty is allergic to penicillin. Medications Outpatient Medications Prior to Visit Medication Sig Dispense Refill pregabalin 75 mg capsule metoprolol tartrate 50 mg tablet TAKE 1 TABLET BY MOUTH TWO TIMES DAILY 180 tablet 4 zolpidem 10 mg tablet Take 1 tablet by mouth at bedtime as needed for Insomnia. 30 tablet 5 diphenoxylate-atropine 2.5-0.025 mg per tablet TAKE ONE (1) TABLET(S) BY MOUTH EVERY SIX HOURS NEEDED FOR DIARRHEA. 30 tablet 4 gabapentin 300 mg capsule Take 1 capsule by mouth 3 (three) times daily. 90 capsule 5 traMADol 50 mg tablet Take 1 tablet by mouth every 6 (six) hours as needed (pain). 30 tablet 0 HUMIRA PEN 40 mg/0.8 mL injection No facility-administered medications prior to visit. 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 HENT: Positive for ear pain. Respiratory: Negative. Negative for apnea, cough, choking, chest tightness, shortness of breath andwheezing. Cardiovascular: Negative. Negative for chest pain, palpitations and leg swelling. Gastrointestinal: Negative. Skin: Negative. Neurological: Negative. Endocrine: Endocrine negative Vital Signs BP (!) 181/82 | Pulse 61 | Temp 37.2 C (98.9 F) (Oral) | Resp 16 | Ht 5' 6" (1.676 m) | Wt 117 lb 6.4 oz (53.3 kg) | SpO2 99% | BMI 18.95 kg/m Physical Exam Constitutional: She is oriented to person, place, and time. She appears well- developed and well-nourished. HENT: Head: Normocephalic. Right Ear: Hearing, tympanic membrane and external ear normal. Left Ear: Hearing, tympanic membrane and external ear normal. Nose: Nose normal. Mouth/Throat: Uvula is midline, oropharynx is clear and moist and mucous membranes are normal. No tonsillar exudate. Right ear canal, the roof of the outer canal noted to have a scab with mild oozing- Neck: Normal range of motion. Neck supple. Cardiovascular: Normal rate, regular rhythm, normal heart sounds and intact distal pulses. Exam reveals no gallop and no friction rub. No murmur heard. Pulmonary/Chest: Effort normal and breath sounds normal. No respiratory distress. She has no wheezes. She has no rales. She exhibits no tenderness. Abdominal: Soft. Bowel sounds are normal. She exhibits no distension. There is no tenderness. Lymphadenopathy: Head (right side): Preauricular adenopathy present. No submental, no submandibular, no tonsillar, no posterior auricular and no occipital adenopathy present. Head (left side): No submental, no submandibular, no tonsillar, no preauricular, no posterior auricular and no occipital adenopathy present. She has no cervical adenopathy. Neurological: She is alert and oriented to person, place, and time. Skin: Skin is warm and dry. Capillary refill takes less than 2 seconds. No rash noted. No erythema. No pallor. Psychiatric: She has a normal mood and affect. Nursing note and vitals reviewed. Assessment/Plan 1. Otitis externa- secondary to rash/shingles (Penny Gaffney)-patient prefers oral antimicrobial not topical, thus Z-pack given as she is allergic to penicillin . She has al appointment with ENT due to the recurrent ear issues since her shingles, keep the appointment as schedule. 2. Hypertension: Continue care with PCP on this. Watch blood pressure: check at least twice weekly. Low salt Low caffeine diet Low alcohol Avoid tobacco products. Heart Healthy Exercise: total of 150 minutes of cardio: walking,swimming, hiking, biking every week. Heart healthy diet: low fat/carb/sugar diet; increase lean meat-chicken, turkey, fish; increase vegetables/fruits ( still be careful because elevated sugar level) ER--> worsening condition; cp, shortness of breath, dizziness, syncope, palpitations, n/v, diaphoresis. Plan of care, desired health behaviors, goals, and medication discussed with patient. Education resources provided and reviewed with AVS. Patient/guardian/family verbalized understanding & agrees to plan of care. This visit did not involve counseling and coordination that comprised more than 50% of the visit time. If applicable, the [facility] database was accessed to review any controlled substance prescription claims data. The [employer] prescription claims data in [place] was reviewed to assess patient compliance with the medication treatment plan. Jennifer Arenas RN - 09/08/2019 9:20 AM CDT Kitty Nicholson is a 68 year old female Chief Complaint Patient presents with Ear Pain Rt, clear, odorless drainage x 09/07/2019 Vitals: 09/08/19 0925 BP: (!) 177/99 Pulse: 61 Resp: 16 Temp: 37.2 C (98.9 F) TempSrc: Oral SpO2: 99% Weight: 117 lb 6.4 oz (53.3 kg) Height: 5' 6" (1.676 m) [id number] - [place], [place] - [facility] [employer] AT [facility] [employer]; [employer] Patient AAOx4 and in no acute distress. All Vitals taken, allergies and all medications reviewed, fall risk assessed. Pain level 3. documented in this encounter Plan of Treatment [...] of 2 - PCV13) 2014 INFLUENZA VACCINE (Season Ended) 2019 03/09/2018 documented as of this encounter Results Not on filedocumented in this encounter Visit Diagnoses Diagnosis Acute otitis externa of both ears, unspe cified type - Primary Essential hypertension Unspecified essential hypertension Carmela Gaffney auricular syndrome Geniculate herpes zoster documented in this encounter Insurance Payer Benefit Plan Subscriber ID Effective Dates Phone Address Type / Group HUMANA - HUMANA CHOICE [id number] 2015-Presen Medicare Adv MANAGED t PPO MEDICARE documented as of this encounter
--- OUTSIDE RECORDS SUMMARY | 2019-10-11 13:48 | XMS REPORT | Summary of Care ---
:1950 Author Organization [facility] Address [address] [place] [address] Care Team Providers Name Role Phone Adelso Triana MD Primary Care Provider [phone] Reason for Visit Reason Comments Ear Pain Rt, clear, odorless drainage x 09/07/2019 Encounter Details Date Type Department Care Team Description 09/08/2019 Urgent Care [facility] Family Bonnie Soares, GLASS SELECTOR [address] [address] Acute otitis externa of both ears, unspe cified type (Primary Dx); [facility] Provider, [facility] Urgent Care Essential hypertension; [facility] [place] [address] Allergies Active Allergy Reactions Severity Noted Date Comments Penicillin Unknown - See comments 06/18/2015 documented as of this encounter (statuses as of 09/11/2019) Medications Medication Sig Dispensed Refills Start Date [...] as of this encounter (statuses as of 09/11/2019) Active Problems Problem Noted Date 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 Also, use ear plugs [...] Laguna last reviewed this educational content on 01/25/201719994465-4163 The [employer]. [address] [place] [address], [place] [address]. All rights reserved. This information is not [...] can, walk or bike instead of driving. [place] leaves, garden, or do household repairs. Be [...] healthcare provider before stopping or changing them. [employer] last reviewed this educational content on 09/25/201819994472-2135 The [employer]. [address] [place] [address], [place] [address]. All rights reserved. 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 If applicable, the [facility] database was accessed to review any controlled substance prescription claims data. The [employer] prescription claims data in [employer] was reviewed to assess patient compliance with [...] (53.3 kg) Height: 5' 6" (1.676 m) [employer] #[id number] - [place], [place] - [facility] [employer] AT [facility] [employer]; [employer] Patient AAOx4 and in no acute distress. [...] Type / Group HUMANA - HUMANA CHOICE [id number] 2015-Presen Medicare Adv MANAGED t PPO MEDICARE documented as of this encounter
--- OUTSIDE RECORDS SUMMARY | 2019-10-11 13:48 | XMS REPORT | Summary of Care ---
:1950 Author Organization [facility] - [facility] Address [address] [place] [address] Care Team Providers Name Role Phone Adelso Triana MD Primary Care Provider [phone] Reason for Visit Reason Comments Ear Pain Rt, clear, odorless drainage x 09/07/2019 Encounter Details Date Type Department Care Team Description 09/08/2019 Urgent Care [facility] Family Bonnie Soares, DISPUTE COORDINATOR [address] [address] Acute otitis externa of both ears, unspe cified type (Primary Dx); [facility] Provider, [facility] Urgent Care Essential hypertension; [facility] [place] [address] Allergies Active Allergy Reactions Severity [...] your ears with a towel or chair inspector and leveler after getting wet. Also, use ear plugs [...] Laguna last reviewed this educational content on 01/25/201719999935-3326 The [employer], [employer]. [address] [place] [address], [place] [address]. All rights reserved. This information is not [...] can, walk or bike instead of driving. [place] leaves, garden, or do household repairs. Be [...] healthcare provider before stopping or changing them. [employer] last reviewed this educational content on 09/25/201819997260-7552 The [employer]. [address] [place] [address], [place] [address]. All rights reserved. 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 If applicable, the [facility] database was accessed to review any controlled substance prescription claims data. The [employer] prescription claims data in MyPublisher was reviewed to assess patient compliance with [...] (53.3 kg) Height: 5' 6" (1.676 m) [employer] #[id number] - [place], [place] - [facility] [employer] AT [facility] [employer]; [employer] Patient AAOx4 and in no acute distress. [...] Type / Group HUMANA - HUMANA CHOICE [id number] 2015-Presen Medicare Adv MANAGED t PPO MEDICARE documented as of this encounter
--- OUTSIDE RECORDS SUMMARY | 2019-10-11 13:48 | XMS REPORT | Summary of Care ---
:1950 Author Organization [facility] Address [address] [place] [id number] Care Team Providers Name Role Phone Adelso Triana MD Primary Care Provider [phone] Reason for Visit Reason Comments Refill Request Encounter Details Date Type Department Care Team Description 09/21/2019 Refill [facility] Adelso Canela MD Refill Request - [address] [facility] 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
--- OUTSIDE RECORDS SUMMARY | 2019-10-11 13:48 | XMS REPORT | Summary of Care ---
:1950 Author Organization [facility] - [facility] Address [address] [place] [address] Care Team Providers Name Role Phone Adelso Triana MD Primary Care Provider [phone] Encounter Details Date Type Department Care Team Description 08/15/2019 Patient Secure Msg [facility]ESS [facility] Doctor Unassigned, [address] [facility] [place] [address] [facility] [phone] [place] [address] Allergies Active Allergy Reactions Severity Noted Date Comments Penicillin Unknown - See comments 06/18/2015 documented as of this encounter (statuses as of 09/17/2019) Medications Medication Sig Dispensed Refills Start Date [...] as of this encounter (statuses as of 09/17/2019) Active Problems Problem Noted Date 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
[2019-10-11 13:49] LABS: Absolute Lymphocytes (CBC) 2.5 K/uL (0.7-4.9); Basophils % 0.6 % (0-1.3); Hematocrit 39.2 % (36.0-45.0); Lymphocytes % 22.3 % (15.3-44.8); MPV 10.1 fL (7.6-11.3); RBC Red Blood Cell Count 4.23 M/uL (3.86-4.86)
--- OUTSIDE RECORDS SUMMARY | 2019-10-11 13:49 | XMS REPORT | Summary of Care ---
:1950 Author Organization [facility] Address [address] [place] [address] Care Team Providers Name Role Phone Adelso Triana MD Primary Care Provider [phone] Reason for Visit Reason Comments Refill Request Encounter Details Date Type Department Care Team Description 09/21/2019 Refill [facility] Family Medicine Adelso Canela MD Refill Request - [address] [facility] [place] [address] [place] [address] [phone] Allergies Active Allergy Reactions Severity Noted Date Comments Penicillin Unknown - See comments 06/18/2015 documented as of this encounter (statuses as of 09/21/2019) Medications Medication Sig Dispensed Refills Start Date End Date Status HUMIRA PEN 40 0 08/11/2015 Activ e mg/0.8 mL injection traMADol 50 mg Take 1 tablet 30 tablet 0 06/20/2019 Active tabletIndications: by mouth Earache on right every 6 (six) hours as needed (pain). gabapentin 300 mg Take 1 90 capsule 5 07/20/2019 Active capsuleIndications: capsule by Earache on right, mouth 3 Herpes zoster (three) times without daily. complication zolpidem 10 mg Take 1 tablet 30 tablet 5 07/26/2019 Active tabletIndications: by mouth at Insomnia, bedtime as unspecified type needed for Insomnia. metoprolol tartrate TAKE 1 TABLET 180 tablet 4 07/26/2019 Active 50 mg BY MOUTH TWO tabletIndications: TIMES DAILY Essential hypertension pregabalin 75 mg 0 07/15/2019 Ac tive capsule DIPHENOXYLATE-ATROP TAKE ONE (1) 30 tablet 3 09/21/2019 Active INE 2.5-0.025 mg TABLET(S) BY per MOUTH EVERY tabletIndications: SIX HOURS Diarrhea, NEEDED FOR unspecified type DIARRHEA. diphenoxylate-atrop TAKE ONE (1) 30 tablet 4 07/26/20192019 Discontinued ine 2.5-0.025 mg TABLET(S) BY per MOUTH EVERY tabletIndications: SIX HOURS Diarrhea, NEEDED FOR unspecified type DIARRHEA. documented as of this encounter (statuses [...] Type / Group HUMANA - HUMANA CHOICE [id number] 2015-[place] Medicare Adv MANAGED t PPO MEDICARE documented as of this encounter
[2019-10-11 14:03] LABS: Albumin 3.7 g/dL (3.4-5.0); Bilirubin Total 0.5 mg/dL (0.2-1.0); Potassium 3.3 mmol/L (3.5-5.1); Protein, Total 7.3 g/dL (6.4-8.2)
[2019-10-11 14:56] VITALS: TEMP 98.3
[2019-10-11 14:59] VITALS: BP 158/97; O2SAT 100
== END 2019-10-11 15:21 | disposition home or self-care (01) ==
LOC: ER 11:21
DX: T78.3XXA Angioneurotic edema, initial encounter (principal); I10 Essential (primary) hypertension; Z88.0 Allergy status to penicillin; Z85.41 Personal history of malignant neoplasm of cervix uteri; Z85.51 Personal history of malignant neoplasm of bladder
CPT/HCPCS: 96361; 85025; 36415; 80053; 96375; 96374; 99283; J1200; J1100; J7040; J7512

== ENCOUNTER 2021-04-26 20:51 | Emergency (ER) | payer OTHER ==
--- OUTSIDE RECORDS SUMMARY | 2021-04-26 20:59 | XMS REPORT | Continuity of Care Document ---
:1950 Author Organization [facility] t Address [address] [place] [address] Care Team Providers Name Role Phone Clifford Montes MD Primary Care Physician FREEDAKANKSHA Attending Clinician Unavailable Clifford Montes MD Attending Clinician Radiology Attending Clinician Unavailable RADIOLOGY Attending Clinician Unavailable Doctor Unassigned, Name Attending Clinician Unavailable CLIFFORD MONTES Attending Clinician Unavailable YASMINE Attending Clinician Unavailable Lab, Fam Pob I Attending Clinician Unavailable Darlyn RICHMOND Attending Clinician Unavailable Nurse, Jaswinder Attending Clinician Unavailable 2, Lab Attending Clinician Unavailable Provider, Urgent Care Attending Clinician Unavailable Anene BI DEVELOPER Attending Clinician ANENE Attending Clinician Unavailable Paul Lemons Attending Clinician Paul CARRERA Attending Clinician Unavailable MARIS Attending Clinician Unavailable CÉSAR Attending Clinician Unavailable Payers Payer Name Policy Type Policy Number Effective Date Expiration Date Kwan núñez [facility] MEDICARE [id number] 2020 ADVANTAGE 00:00:00 [employer]MA[employer] CHOICE [id number] 2015 00:00:00 Problems Condition Condition Condition Status Onset Resolution Last Treating Co mments Source Name Details Category Date Date Treatment Clinician Date [place] Disease Active [facility] Gulshan Gaffney 2- [place] Essential Essential Disease Active Uni vers hypertensi hypertensi 08-30 it y of on on 00:00: [place] [address] Medical Branch Bladder Bladder Disease Active [facility] cancer cancer 08-30 ity of 00:00: [place] 00 Medical Branch Psoriasis Psoriasis Disease Active Uni vers 08-30 ity of 00:00: [place] [facility] Psoriatic Psoriatic Disease Active Uni vers arthritis arthritis 08-30 ity of 00:00: [place] [facility] Insomnia Insomnia Disease Active Unive rs 08-30 ity of 00:00: [place] 00 Medical Branch Allergies, Adverse Reactions, Alerts Allergy Allergy Status Severity Reaction(s) Onset Inactive Treating Comm ents Source Name Type Date Date Clinician Penicill Propensi Active Unknown - Uni vers in ty to See comments 06-18 ity of adverse 00:00: [place] reaction 00 Medical s Branch Penicill Propensi Active Unknown - Uni vers in ty to See comments 06-18 ity of adverse 00:00: [place] reaction 00 Medical s Branch PENICILL DRUG Active Unknown-Cmnt Un ke IN INGREDI 06-18 ity of 00:00: [place] 00 Medical Branch Social History Social Habit Start Date Stop Date Quantity Comments Source Exposure to Not sure [facility] SARS-CoV-2 (event) Medica l Branch History SDOH [facility] [place] Alcohol Frequency Medical Branch History SDOH [facility] [place] Alcohol Std Drinks Medica l Branch History [facility] [place] Alcohol Binge Medical Bra [facility] Alcohol intake 2019-11-30 2019-11-30 .14 /d [facility] 00:00:00 00:00:00 Medical Branch Alcohol Comment 2015-08-31 2015-08-31 occ [facility] 00:00:00 00:00:00 Medical [place] Tobacco use and 2015-08-31 2015-08-31 Never used [facility] exposure 00:00:00 00:00:00 Medical Branch Sex [birth year] [facility] 00:00:00 00:00:00 Medical Branch Smoking Status Start Date Stop Date Source Former smoker 2019-11-30 00:00:00 2019-11-30 00:00:00 [facility] Medical Branch Medications Ordered Filled Start Stop Current Ordering Indication Dosage Frequency Signature Comments Components Source Medication Medication Date Date Medication? Clinician (SIG) Name Name diphenoxyla 2020-04 Yes [id number] 1{tbl} Take 1 Univers te-atropine 2-28 tablet by ity of 2.5-0.025 00:00: mouth [place] mg tablet 00 every 6 Medical (six) Branch hours as needed (diarrhea) . fluconazole 2020- No Yeast 150mg Take 1 U nivers (DIFLUCAN) 08-31-08 infection tablet by ity of 150 mg 00:00: 04:59 mouth [place] tablet 00 :00 now for 1 Medical dose. Branch fluconazole 2020- No [id number] 150mg Take 1 Univers (DIFLUCAN) 08-31 05-08 tablet by ity of 150 mg 00:00: 04:59 mouth [place] tablet 00 :00 now for 1 Medical dose. Branch sulfamethox 2020-0 Yes Cystitis 1{tbl} Take 1 Univers azole-trime 5-06 tablet by ity of thoprim 00:00: mouth 2 [place] (BACTRIM 00 (two) Medical DS) 800-160 times Branch mg per daily. tablet sulfamethox 2020-0 Yes [id number] 1{tbl} Take 1 Univers azole-trime 5-06 tablet by ity of thoprim 00:00: mouth 2 [place] (BACTRIM 00 (two) Medical DS) 800-160 times Branch mg per daily. tablet sulfamethox 2020-0 Yes [id number] 1{tbl} Take 1 [facility] azole-trime 5-06 tablet by ity of thoprim 00:00: mouth 2 [place] (BACTRIM 00 (two) Medical DS) 800-160 times Branch mg per daily. tablet sulfamethox 1-0 Yes [id number] 1{tbl} Take 1 Univers azole-trime 5-06 tablet by ity of thoprim 00:00: mouth 2 [place] (BACTRIM 00 (two) Medical DS) 800-160 times Branch mg per daily. tablet sulfamethox 2021-0 Yes [id number] 1{tbl} Take 1 [facility] azole-trime 5-06 tablet by ity of thoprim 00:00: mouth 2 [place] (BACTRIM 00 (two) Medical DS) 800-160 times Branch mg per daily. tablet sulfamethox 2021-0 Yes [id number] 1{tbl} Take 1 [facility] azole-trime 5-06 tablet by ity of thoprim 00:00: mouth 2 [place] (BACTRIM 00 (two) Medical DS) 800-160 times Branch mg per daily. tablet sulfamethox 2020-0 Yes [id number] 1{tbl} Take 1 Univers azole-trime 5-06 tablet by ity of thoprim 00:00: mouth 2 [place] (BACTRIM 00 (two) Medical DS) 800-160 times Branch mg per daily. tablet sulfamethox 2020-0 Yes [id number] 1{tbl} Take 1 Univers azole-trime 5-06 tablet by ity of thoprim 00:00: mouth 2 [place] (BACTRIM 00 (two) Medical DS) 800-160 times Branch mg per daily. tablet sulfamethox 2020-0 Yes [id number] 1{tbl} Take 1 [facility] azole-trime 5-06 tablet by ity of thoprim 00:00: mouth 2 [place] (BACTRIM 00 (two) Medical DS) 800-160 times Branch mg per daily. tablet sulfamethox 2020- Yes [id number] 1{tbl} Take 1 Univers azole-trime 5-06 tablet by ity of thoprim 00:00: mouth 2 [place] (BACTRIM 00 (two) Medical DS) 800-160 times Branch mg per daily. tablet sulfamethox 2020- Yes [id number] 1{tbl} Take 1 Univers azole-trime 5-06 tablet by ity of thoprim 00:00: mouth 2 [place] (BACTRIM 00 (two) Medical DS) 800-160 times Branch mg per daily. tablet sulfamethox 2020- Yes [id number] 1{tbl} Take 1 Univers azole-trime 5-06 tablet by ity of thoprim 00:00: mouth 2 [place] (BACTRIM 00 (two) Medical DS) 800-160 times Branch mg per daily. tablet fluconazole 2020- No Yeast 150mg Take 1 U nivers (DIFLUCAN) 08-30 05-07 infection tablet by ity of 150 mg 00:00: 04:59 mouth [place] tablet 00 :00 now for 1 Medical dose. Branch fluconazole 2020- No [id number] 150mg Take 1 Univers (DIFLUCAN) 5- 05-07 tablet by ity of 150 mg 00:00: 04:59 mouth [place] tablet 00 :00 now for 1 Medical dose. Branch cefUROXime Yes Cystitis 250mg Take 1 [facility] 250 mg 5-04 tablet by ity of tablet 00:00: mouth 2 [place] 00 (two) Medical times Branch daily. traMADoL 50 Yes chronic 50mg Take 1 U nivers mg tablet 5-04 pain tablet by ity o f 00:00: mouth [place] 00 every 6 Medical (six) Branch hours as needed (pain). Indication s: chronic pain metoprolol Yes Essential TAKE 1 Univers tartrate 50 5-04 hypertensio TABLET BY ity of mg tablet 00:00: n MOUTH [place] 00 TWICE Medical DAILY Branch diphenoxyla Yes Diarrhea, 1{tbl} Take 1 Univers te-atropine 5-04 unspecified tablet by ity of 2.5-0.025 00:00: type mouth [place] mg tablet 00 every 6 Medical (six) Branch hours as needed (diarrhea) . zolpidem 10 Yes Insomnia, 10mg Take 1 [facility] mg tablet 5-04 unspecified tablet by ity of 00:00: type mouth at [place] 00 bedtime as Medical needed for Branch Insomnia. cefUROXime Yes Cystitis 250mg Take 1 [facility] 250 mg 5-04 tablet by ity of tablet 00:00: mouth 2 [place] 00 (two) Medical times Branch daily. traMADoL 50 Yes chronic 50mg Take 1 U nivers mg tablet 5-04 pain tablet by ity o f 00:00: mouth [place] 00 every 6 Medical (six) Branch hours as needed (pain). Indication s: chronic pain metoprolol Yes Essential TAKE 1 Univers tartrate 50 5-04 hypertensio TABLET BY ity of mg tablet 00:00: n MOUTH [place] 00 TWICE Medical DAILY Branch diphenoxyla Yes Diarrhea, 1{tbl} Take 1 Univers te-atropine 5-04 unspecified tablet by ity of 2.5-0.025 00:00: type mouth [place] mg tablet 00 every 6 Medical (six) Branch hours as needed (diarrhea) . zolpidem 10 Yes Insomnia, 10mg Take 1 Univers mg tablet 5-04 unspecified tablet by ity of 00:00: type mouth at [place] 00 bedtime as Medical needed for Branch Insomnia. cefUROXime Yes [id number] 250mg Take 1 [facility] 250 mg 5-04 tablet by ity of tablet 00:00: mouth 2 [place] 00 (two) Medical times Branch daily. traMADoL 50 Yes [id number] 50mg Take 1 Univ ers mg tablet 5-04 tablet by ity o f 00:00: mouth [place] 00 every 6 Medical (six) Branch hours as needed (pain). Indication s: chronic pain metoprolol Yes [id number] TAKE 1 U nivers tartrate 50 5-04 TABLET BY ity of mg tablet 00:00: MOUTH [place] 00 TWICE Medical DAILY Branch diphenoxyla Yes [id number] 1{tbl} Take 1 Univers te-atropine 5-04 tablet by ity of 2.5-0.025 00:00: mouth [place] mg tablet 00 every 6 Medical (six) Branch hours as needed (diarrhea) . zolpidem 10 Yes [id number] 10mg Take 1 Univers mg tablet 5-04 tablet by ity o f 00:00: mouth at [place] 00 bedtime as Medical needed for Branch Insomnia. cefUROXime Yes [id number] 250mg Take 1 [facility] 250 mg 5-04 tablet by ity of tablet 00:00: mouth 2 [place] 00 (two) Medical times Branch daily. traMADoL 50 Yes [id number] 50mg Take 1 Univ ers mg tablet 5-04 tablet by ity o f 00:00: mouth [place] 00 every 6 Medical (six) Branch hours as needed (pain). Indication s: chronic pain metoprolol Yes [id number] TAKE 1 U nivers tartrate 50 5-04 TABLET BY ity of mg tablet 00:00: MOUTH [place] 00 TWICE Medical DAILY Branch diphenoxyla Yes [id number] 1{tbl} Take 1 Univers te-atropine 5-04 tablet by ity of 2.5-0.025 00:00: mouth [place] mg tablet 00 every 6 Medical (six) Branch hours as needed (diarrhea) . zolpidem 10 Yes [id number] 10mg Take 1 [facility] mg tablet 5-04 tablet by ity o f 00:00: mouth at [place] 00 bedtime as Medical needed for Branch Insomnia. cefUROXime Yes [id number] 250mg Take 1 [facility] 250 mg 5-04 tablet by ity of tablet 00:00: mouth 2 [place] 00 (two) Medical times Branch daily. traMADoL 50 Yes [id number] 50mg Take 1 Univ ers mg tablet 5-04 tablet by ity o f 00:00: mouth [place] 00 every 6 Medical (six) Branch hours as needed (pain). Indication s: chronic pain metoprolol Yes [id number] TAKE 1 U nivers tartrate 50 5-04 TABLET BY ity of mg tablet 00:00: MOUTH [place] 00 TWICE Medical DAILY Branch diphenoxyla Yes [id number] 1{tbl} Take 1 Univers te-atropine 5-04 tablet by ity of 2.5-0.025 00:00: mouth [place] mg tablet 00 every 6 Medical (six) Branch hours as needed (diarrhea) . zolpidem 10 Yes [id number] 10mg Take 1 Univers mg tablet 5-04 tablet by ity o f 00:00: mouth at [place] 00 bedtime as Medical needed for Branch Insomnia. cefUROXime Yes [id number] 250mg Take 1 Univers 250 mg 5-04 tablet by ity of tablet 00:00: mouth 2 00 (two) Medical times Branch daily. traMADoL 50 Yes [id number] 50mg Take 1 Univ ers mg tablet 5-04 tablet by ity o f 00:00: mouth [place] 00 every 6 Medical (six) Branch hours as needed (pain). Indication s: chronic pain metoprolol Yes [id number] TAKE 1 U nivers tartrate 50 5-04 TABLET BY ity of mg tablet 00:00: MOUTH [place] 00 TWICE Medical DAILY Branch diphenoxyla Yes [id number] 1{tbl} Take 1 Univers te-atropine 5-04 tablet by ity of 2.5-0.025 00:00: mouth [place] mg tablet 00 every 6 Medical (six) Branch hours as needed (diarrhea) . zolpidem 10 Yes [id number] 10mg Take 1 Univers mg tablet 5-04 tablet by ity o f 00:00: mouth at [place] 00 bedtime as Medical needed for Branch Insomnia. cefUROXime Yes [id number] 250mg Take 1 [facility] 250 mg 5-04 tablet by ity of tablet 00:00: mouth 2 [place] 00 (two) Medical times Branch daily. traMADoL 50 Yes [id number] 50mg Take 1 Univ ers mg tablet 5-04 tablet by ity o f 00:00: mouth [place] 00 every 6 Medical (six) Branch hours as needed (pain). Indication s: chronic pain metoprolol Yes [id number] TAKE 1 U nivers tartrate 50 5-04 TABLET BY ity of mg tablet 00:00: MOUTH [place] 00 TWICE Medical DAILY Branch diphenoxyla Yes [id number] 1{tbl} Take 1 Univers te-atropine 5-04 tablet by ity of 2.5-0.025 00:00: mouth [place] mg tablet 00 every 6 Medical (six) Branch hours as needed (diarrhea) . zolpidem 10 Yes [id number] 10mg Take 1 Univers mg tablet 5-04 tablet by ity o f 00:00: mouth at [place] 00 bedtime as Medical needed for Branch Insomnia. cefUROXime Yes [id number] 250mg Take 1 Univers 250 mg 5-04 tablet by ity of tablet 00:00: mouth (two) Medical times Branch daily. traMADoL 50 Yes [id number] 50mg Take 1 Univ ers mg tablet 5-04 tablet by ity o f 00:00: mouth [place] 00 every 6 Medical (six) Branch hours as needed (pain). Indication s: chronic pain metoprolol Yes [id number] TAKE 1 U nivers tartrate 50 5-04 TABLET BY ity of mg tablet 00:00: MOUTH [place] 00 TWICE Medical DAILY Branch diphenoxyla Yes [id number] 1{tbl} Take 1 Univers te-atropine 5-04 tablet by ity of 2.5-0.025 00:00: mouth [place] mg tablet 00 every 6 Medical (six) Branch hours as needed (diarrhea) . zolpidem 10 Yes [id number] 10mg Take 1 Univers mg tablet 5-04 tablet by ity o f 00:00: mouth at [place] 00 bedtime as Medical needed for Branch Insomnia. cefUROXime Yes [id number] 250mg Take 1 Univers 250 mg 5-04 tablet by ity of tablet 00:00: mouth 2 00 (two) Medical times Branch daily. traMADoL 50 Yes [id number] 50mg Take 1 Univ ers mg tablet 5-04 tablet by ity o f 00:00: mouth [place] 00 every 6 Medical (six) Branch hours as needed (pain). Indication s: chronic pain metoprolol Yes [id number] TAKE 1 U nivers tartrate 50 5-04 TABLET BY ity of mg tablet 00:00: MOUTH [place] 00 TWICE Medical DAILY Branch diphenoxyla Yes [id number] 1{tbl} Take 1 Univers te-atropine 5-04 tablet by ity of 2.5-0.025 00:00: mouth [place] mg tablet 00 every 6 Medical (six) Branch hours as needed (diarrhea) . zolpidem 10 Yes [id number] 10mg Take 1 Univers mg tablet 5-04 tablet by ity o f 00:00: mouth at [place] 00 bedtime as Medical needed for Branch Insomnia. cefUROXime Yes [id number] 250mg Take 1 Univers 250 mg 5-04 tablet by ity of tablet 00:00: mouth 2 [place] 00 (two) Medical times Branch daily. traMADoL 50 Yes [id number] 50mg Take 1 Univ ers mg tablet 5-04 tablet by ity o f 00:00: mouth [place] 00 every 6 Medical (six) Branch hours as needed (pain). Indication s: chronic pain metoprolol Yes [id number] TAKE 1 U nivers tartrate 50 5-04 TABLET BY ity of mg tablet 00:00: MOUTH [place] 00 TWICE Medical DAILY Branch diphenoxyla Yes [id number] 1{tbl} Take 1 Univers te-atropine 5-04 tablet by ity of 2.5-0.025 00:00: mouth [place] mg tablet 00 every 6 Medical (six) Branch hours as needed (diarrhea) . zolpidem 10 Yes [id number] 10mg Take 1 Univers mg tablet 5-04 tablet by ity o f 00:00: mouth at [place] 00 bedtime as Medical needed for Branch Insomnia. cefUROXime Yes [id number] 250mg Take 1 Univers 250 mg 5-04 tablet by ity of tablet 00:00: mouth 2 [place] 00 (two) Medical times Branch daily. traMADoL 50 2021-0 Yes [id number] 50mg Take 1 Univ ers mg tablet 5-04 tablet by ity o f 00:00: mouth [place] 00 every 6 Medical (six) Branch hours as needed (pain). Indication s: chronic pain metoprolol Yes [id number] TAKE 1 U nivers tartrate 50 5-04 TABLET BY ity of mg tablet 00:00: MOUTH [place] 00 TWICE Medical DAILY Branch diphenoxyla Yes [id number] 1{tbl} Take 1 Univers te-atropine 5-04 tablet by ity of 2.5-0.025 00:00: mouth [place] mg tablet 00 every 6 Medical (six) Branch hours as needed (diarrhea) . zolpidem 10 Yes [id number] 10mg Take 1 Univers mg tablet 5-04 tablet by ity o f 00:00: mouth at [place] 00 bedtime as Medical needed for Branch Insomnia. cefUROXime Yes [id number] 250mg Take 1 Univers 250 mg 5-04 tablet by ity of tablet 00:00: mouth 2 [place] 00 (two) Medical times Branch daily. traMADoL 50 Yes [id number] 50mg Take 1 Univ ers mg tablet 5-04 tablet by ity o f 00:00: mouth [place] 00 every 6 Medical (six) Branch hours as needed (pain). Indication s: chronic pain metoprolol Yes [id number] TAKE 1 U nivers tartrate 50 5-04 TABLET BY ity of mg tablet 00:00: MOUTH [place] 00 TWICE Medical DAILY Branch diphenoxyla Yes [id number] 1{tbl} Take 1 Univers te-atropine 5-04 tablet by ity of 2.5-0.025 00:00: mouth [place] mg tablet 00 every 6 Medical (six) Branch hours as needed (diarrhea) . zolpidem 10 Yes [id number] 10mg Take 1 Univers mg tablet 5-04 tablet by ity o f 00:00: mouth at [place] 00 bedtime as Medical needed for Branch Insomnia. cefUROXime Yes [id number] 250mg Take 1 Univers 250 mg 5-04 tablet by ity of tablet 00:00: mouth 2 [place] 00 (two) Medical times Branch daily. traMADoL 50 Yes [id number] 50mg Take 1 Univ ers mg tablet 5-04 tablet by ity o f 00:00: mouth [place] 00 every 6 Medical (six) Branch hours as needed (pain). Indication s: chronic pain metoprolol Yes [id number] TAKE 1 U nivers tartrate 50 5-04 TABLET BY ity of mg tablet 00:00: MOUTH [place] 00 TWICE Medical DAILY Branch diphenoxyla Yes [id number] 1{tbl} Take 1 Univers te-atropine 5-04 tablet by ity of 2.5-0.025 00:00: mouth [place] mg tablet 00 every 6 Medical (six) Branch hours as needed (diarrhea) . zolpidem 10 Yes [id number] 10mg Take 1 Univers mg tablet 5-04 tablet by ity o f 00:00: mouth at [place] 00 bedtime as Medical needed for Branch Insomnia. cefUROXime Yes [id number] 250mg Take 1 Univers 250 mg 5-04 tablet by ity of tablet 00:00: mouth 2 [place] 00 (two) Medical times Branch daily. traMADoL 50 Yes [id number] 50mg Take 1 Univ ers mg tablet 5-04 tablet by ity o f 00:00: mouth [place] 00 every 6 Medical (six) Branch hours as needed (pain). Indication s: chronic pain metoprolol Yes [id number] TAKE 1 U nivers tartrate 50 5-04 TABLET BY ity of mg tablet 00:00: MOUTH [place] 00 TWICE Medical DAILY Branch diphenoxyla Yes [id number] 1{tbl} Take 1 Univers te-atropine 5-04 tablet by ity of 2.5-0.025 00:00: mouth [place] mg tablet 00 every 6 Medical (six) Branch hours as needed (diarrhea) . zolpidem 10 Yes [id number] 10mg Take 1 Univers mg tablet 5-04 tablet by ity o f 00:00: mouth at [place] 00 bedtime as Medical needed for Branch Insomnia. cefUROXime Yes [id number] 250mg Take 1 [facility] 250 mg 5-04 tablet by ity of tablet 00:00: mouth 2 [place] 00 (two) Medical times Branch daily. traMADoL 50 Yes [id number] 50mg Take 1 Univ ers mg tablet 5-04 tablet by ity o f 00:00: mouth [place] 00 every 6 Medical (six) Branch hours as needed (pain). Indication s: chronic pain metoprolol Yes [id number] TAKE 1 U nivers tartrate 50 5-04 TABLET BY ity of mg tablet 00:00: MOUTH [place] 00 TWICE Medical DAILY Branch diphenoxyla Yes [id number] 1{tbl} Take 1 Univers te-atropine 5-04 tablet by ity of 2.5-0.025 00:00: mouth [place] mg tablet 00 every 6 Medical (six) Branch hours as needed (diarrhea) . zolpidem 10 Yes [id number] 10mg Take 1 Univers mg tablet 5-04 tablet by ity o f 00:00: mouth at [place] 00 bedtime as Medical needed for Branch Insomnia. cefUROXime Yes [id number] 250mg Take 1 [facility] 250 mg 5-04 tablet by ity of tablet 00:00: mouth 2 [place] 00 (two) Medical times Branch daily. traMADoL 50 Yes [id number] 50mg Take 1 Univ ers mg tablet 5-04 tablet by ity o f 00:00: mouth [place] 00 every 6 Medical (six) Branch hours as needed (pain). Indication s: chronic pain metoprolol Yes [id number] TAKE 1 U nivers tartrate 50 5-04 TABLET BY ity of mg tablet 00:00: MOUTH [place] 00 TWICE Medical DAILY Branch diphenoxyla Yes [id number] 1{tbl} Take 1 Univers te-atropine 5-04 tablet by ity of 2.5-0.025 00:00: mouth [place] mg tablet 00 every 6 Medical (six) Branch hours as needed (diarrhea) . zolpidem 10 Yes [id number] 10mg Take 1 [facility] mg tablet 5-04 tablet by ity o f 00:00: mouth at [place] 00 bedtime as Medical needed for Branch Insomnia. cefUROXime Yes [id number] 250mg Take 1 [facility] 250 mg 5-04 tablet by ity of tablet 00:00: mouth 2 [place] 00 (two) Medical times Branch daily. traMADoL 50 Yes [id number] 50mg Take 1 Univ ers mg tablet 5-04 tablet by ity o f 00:00: mouth [place] 00 every 6 Medical (six) Branch hours as needed (pain). Indication s: chronic pain metoprolol Yes [id number] TAKE 1 U nivers tartrate 50 5-04 TABLET BY ity of mg tablet 00:00: MOUTH [place] 00 TWICE Medical DAILY Branch diphenoxyla Yes [id number] 1{tbl} Take 1 Univers te-atropine 5-04 tablet by ity of 2.5-0.025 00:00: mouth [place] mg tablet 00 every 6 Medical (six) Branch hours as needed (diarrhea) . zolpidem 10 Yes [id number] 10mg Take 1 [facility] mg tablet 5-04 tablet by ity o f 00:00: mouth at [place] 00 bedtime as Medical needed for Branch Insomnia. cefUROXime Yes [id number] 250mg Take 1 [facility] 250 mg 5-04 tablet by ity of tablet 00:00: mouth 2 [place] 00 (two) Medical times Branch daily. traMADoL 50 Yes [id number] 50mg Take 1 Univ ers mg tablet 5-04 tablet by ity o f 00:00: mouth [place] 00 every 6 Medical (six) Branch hours as needed (pain). Indication s: chronic pain metoprolol Yes [id number] TAKE 1 U nivers tartrate 50 5-04 TABLET BY ity of mg tablet 00:00: MOUTH [place] 00 TWICE Medical DAILY Branch diphenoxyla Yes [id number] 1{tbl} Take 1 Univers te-atropine 5-04 tablet by ity of 2.5-0.025 00:00: mouth [place] mg tablet 00 every 6 Medical (six) Branch hours as needed (diarrhea) . zolpidem 10 Yes [id number] 10mg Take 1 [facility] mg tablet 5-04 tablet by ity o f 00:00: mouth at [place] 00 bedtime as Medical needed for Branch Insomnia. cefUROXime Yes [id number] 250mg Take 1 [facility] 250 mg 5-04 tablet by ity of tablet 00:00: mouth 2 [place] 00 (two) Medical times Branch daily. traMADoL 50 Yes [id number] 50mg Take 1 Univ ers mg tablet 5-04 tablet by ity o f 00:00: mouth [place] 00 every 6 Medical (six) Branch hours as needed (pain). Indication s: chronic pain metoprolol Yes [id number] TAKE 1 U nivers tartrate 50 5-04 TABLET BY ity of mg tablet 00:00: MOUTH [place] 00 TWICE Medical DAILY Branch zolpidem 10 Yes [id number] 10mg Take 1 Univers mg tablet 5-04 tablet by ity o f 00:00: mouth at [place] 00 bedtime as Medical needed for Branch Insomnia. diphenoxyla 2020- No [id number] 1{tbl} Take 1 Univers te-atropine 5-04 12-28 tablet by it y of 2.5-0.025 00:00: 00:00 mouth [place] mg tablet 00 :00 every 6 Medical (six) Branch hours as needed (diarrhea) . metoprolol Yes [id number] TAKE 1 U nivers tartrate 50 4-19 TABLET BY ity of mg tablet 00:00: MOUTH [place] 00 TWICE Medical DAILY Branch metoprolol 2020- No [id number] TAKE 1 Univers tartrate 50 4-19 05-04 TABLET BY it y of mg tablet 00:00: 00:00 [facility] 00 :00 TWICE Medical DAILY Branch metoprolol 2020- No [id number] TAKE 1 Univers tartrate 50 4-19 05-04 TABLET BY it y of mg tablet 00:00: 00:00 [facility] 00 :00 TWICE Medical DAILY Branch metoprolol 2020- No [id number] TAKE 1 Univers tartrate 50 4-19 05-04 TABLET BY it y of mg tablet 00:00: 00:00 [facility] 00 :00 TWICE Medical DAILY Branch GABAPENTIN 2020-0 Yes [id number] TAKE 1 Univers 300 mg 8-12 CAPSULE BY ity of capsule 00:00: [facility] THREE Medical TIMES Branch DAILY GABAPENTIN 2020-0 Yes [id number] TAKE 1 Univers 300 mg 8-12 CAPSULE BY ity of capsule 00:00: [facility] THREE Medical TIMES Branch DAILY GABAPENTIN 2020-0 Yes [id number] TAKE 1 Univers 300 mg 8-12 CAPSULE BY ity of capsule 00:00: [place] [address] THREE Medical TIMES Branch DAILY GABAPENTIN 2020-0 Yes [id number] TAKE 1 Univers 300 mg 8-12 CAPSULE BY ity of capsule 00:00: [place] [address] THREE Medical TIMES Branch DAILY GABAPENTIN 2019-0 2021- No [id number] TAKE 1 Univers 300 mg 8-12 05-04 CAPSULE BY ity of capsule 00:00: 00:00 MOUTH [place] 00 :00 THREE Medical TIMES Branch DAILY GABAPENTIN 2020-0 2020- No [id number] TAKE 1 Univers 300 mg 8-12 05-04 CAPSULE BY ity of capsule 00:00: 00:00 MOUTH [place] 00 :00 THREE Medical TIMES Branch DAILY GABAPENTIN 2020-0 2020- No [id number] TAKE 1 Univers 300 mg 8-12 05-04 CAPSULE BY ity of capsule 00:00: 00:00 MOUTH [place] 00 :00 THREE Medical TIMES Branch DAILY DIPHENOXYLA 2020-0 Yes [id number] TAKE ONE Univers TE-ATROPINE 5-27 (1) ity of 2.5-0.025 00:00: TABLET(S) [place]dir[place] as mg per 00 BY MOUTH Medical tablet EVERY SIX Branch HOURS NEEDED FOR DIARRHEA. DIPHENOXYLA 2020-0 Yes [id number] TAKE ONE Univers TE-ATROPINE 5-27 (1) ity of 2.5-0.025 00:00: TABLET(S) [place] as mg per 00 BY MOUTH Medical tablet EVERY SIX Branch HOURS NEEDED FOR DIARRHEA. DIPHENOXYLA 2020-0 Yes [id number] TAKE ONE Univers TE-ATROPINE 5-27 (1) ity of 2.5-0.025 00:00: TABLET(S) [place]dir[place] as mg per 00 BY MOUTH Medical tablet EVERY SIX Branch HOURS NEEDED FOR DIARRHEA. DIPHENOXYLA 2020-0 Yes [id number] TAKE ONE [facility] TE-ATROPINE 5-27 (1) ity of 2.5-0.025 00:00: TABLET(S) [facility] mg per 00 BY MOUTH Medical tablet EVERY SIX Branch HOURS NEEDED FOR DIARRHEA. DIPHENOXYLA 2020-0 Yes [id number] TAKE ONE [facility] TE-ATROPINE 5-27 (1) ity of 2.5-0.025 00:00: TABLET(S) [facility] mg per 00 BY MOUTH Medical tablet EVERY SIX Branch HOURS NEEDED FOR DIARRHEA. DIPHENOXYLA 2020-0 Yes [id number] TAKE ONE [facility] TE-ATROPINE 5-27 (1) ity of 2.5-0.025 00:00: TABLET(S) [facility] mg per 00 BY MOUTH Medical tablet EVERY SIX Branch HOURS NEEDED FOR DIARRHEA. DIPHENOXYLA 2020-0 Yes [id number] TAKE ONE [facility] TE-ATROPINE 5-27 (1) ity of 2.5-0.025 00:00: TABLET(S) [facility] mg per 00 BY MOUTH Medical tablet EVERY SIX Branch HOURS NEEDED FOR DIARRHEA. DIPHENOXYLA Yes [id number] TAKE ONE [facility] TE-ATROPINE 5-27 (1) ity of 2.5-0.025 00:00: TABLET(S) [facility] mg per 00 BY MOUTH Medical tablet EVERY SIX Branch HOURS NEEDED FOR DIARRHEA. DIPHENOXYLA Yes [id number] TAKE ONE [facility] TE-ATROPINE 5-27 (1) ity of 2.5-0.025 00:00: TABLET(S) [facility] mg per 00 BY MOUTH Medical tablet EVERY SIX Branch HOURS NEEDED FOR DIARRHEA. DIPHENOXYLA Yes [id number] TAKE ONE [facility] TE-ATROPINE 5-27 (1) ity of 2.5-0.025 00:00: TABLET(S) [facility] mg per 00 BY MOUTH Medical tablet EVERY SIX Branch HOURS NEEDED FOR DIARRHEA. DIPHENOXYLA 2020- No [id number] TAKE ONE [facility] TE-ATROPINE 5-27 05-04 (1) ity of 2.5-0.025 00:00: 00:00 TABLET(S) [place] mg per 00 :00 BY MOUTH Medical tablet EVERY SIX Branch HOURS NEEDED FOR DIARRHEA. DIPHENOXYLA 2020- No [id number] TAKE ONE [facility] TE-ATROPINE 5-27 05-04 (1) ity of 2.5-0.025 00:00: 00:00 TABLET(S) [place] mg per 00 :00 BY MOUTH Medical tablet EVERY SIX Branch HOURS NEEDED FOR DIARRHEA. DIPHENOXYLA 2020- No [id number] TAKE ONE [facility] TE-ATROPINE 5-27 05-04 (1) ity of 2.5-0.025 00:00: 00:00 TABLET(S) [place] mg per 00 :00 BY MOUTH Medical tablet EVERY SIX Branch HOURS NEEDED FOR DIARRHEA. azithromyci 2019- No [id number] 250mg Take 1 [facility] n 5-14 05-20 [id number] tablet by ity of (ZITHROMAX 00:00: 04:59 mouth [place] Z-CAREY) 250 00 :00 daily for Medi ita mg tablet 5 days. Branch Take 500 mg day 1, then 250 mg days 2 to 5. azithromyci 2019-0 2019- No [id number] 250mg Take 1 [facility] n 09-07 [id number] tablet by ity of (ZITHROMAX 00:00: 04:59 mouth [place] Z-CAREY) 250 00 :00 daily for Medi ita mg tablet 5 days. Branch Take 500 mg day 1, then 250 mg days 2 to 5. azithromyci 2019-2019- No [id number] 250mg Take 1 [facility] n 09-07 [id number] tablet by ity of (ZITHROMAX 00:00: 04:59 mouth [place] Z-CAREY) 250 00 :00 daily for Medi ita mg tablet 5 days. Branch Take 500 mg day 1, then 250 mg days 2 to 5. valACYclovi 2020- No 1g Take 1 g U nivers r (VALTREX) 3-31 07-25 by mouth 3 i ty of 1 gram 15:28: 00:00 (three) [place] tablet 54 :00 times Medical daily. Branch zolpidem 10 2019-0 Yes [id number] 10mg Take 1 [facility] mg tablet 3- tablet by ity o f 00:00: mouth at [place] 00 bedtime as Medical needed for Branch Insomnia. diphenoxyla 2019-0 Yes [id number] TAKE ONE [facility] te-atropine -31 (1) ity of 2.5-0.025 00:00: TABLET(S) [facility] mg per 00 BY MOUTH Medical tablet EVERY SIX Branch HOURS NEEDED FOR DIARRHEA. metoprolol 2020-0 Yes [id number] TAKE 1 U nivers tartrate 50 - TABLET BY ity of mg tablet 00:00: MOUTH TWO [facility] 00 TIMES Medical DAILY Branch zolpidem 10 2019-0 Yes [id number] 10mg Take 1 [facility] mg tablet 3-31 tablet by ity o f 00:00: mouth at [place] 00 bedtime as Medical needed for Branch Insomnia. diphenoxyla 2020-0 Yes [id number] TAKE ONE [facility] te-atropine 3-31 (1) ity of 2.5-0.025 00:00: TABLET(S) [facility] mg per 00 BY MOUTH Medical tablet EVERY SIX Branch HOURS NEEDED FOR DIARRHEA. metoprolol 2020-0 Yes [id number] TAKE 1 U nivers tartrate 50 3-31 TABLET BY ity of mg tablet 00:00: MOUTH TWO [facility] 00 TIMES Medical DAILY Branch zolpidem 10 2019-0 Yes [id number] 10mg Take 1 [facility] mg tablet 3-31 tablet by ity o f 00:00: mouth at [place] 00 bedtime as Medical needed for Branch Insomnia. diphenoxyla 2020-0 Yes [id number] TAKE ONE [facility] te-atropine 3-31 (1) ity of 2.5-0.025 00:00: TABLET(S) [facility] mg per 00 BY MOUTH Medical tablet EVERY SIX Branch HOURS NEEDED FOR DIARRHEA. metoprolol 2019-0 Yes [id number] TAKE 1 U nivers tartrate 50 3-31 TABLET BY ity of mg tablet 00:00: MOUTH TWO [facility] 00 TIMES Medical DAILY Branch zolpidem 10 2019-0 Yes [id number] 10mg Take 1 [facility] mg tablet 3-31 tablet by ity o f 00:00: mouth at [place] [address] bedtime as Medical needed for Branch Insomnia. diphenoxyla 2019-0 Yes [id number] TAKE ONE [facility] te-atropine 3-31 (1) ity of 2.5-0.025 00:00: TABLET(S) [facility] mg per 00 BY MOUTH Medical tablet EVERY SIX Branch HOURS NEEDED FOR DIARRHEA. metoprolol 2019-0 Yes [id number] TAKE 1 [facility] nivers tartrate 50 3-31 TABLET BY ity of mg tablet 00:00: MOUTH TWO [facility] 00 TIMES Medical DAILY Branch zolpidem 10 2019-0 Yes [id number] 10mg Take 1 [facility] mg tablet 3-31 tablet by ity o f 00:00: mouth at [place] [address] bedtime as Medical needed for Branch Insomnia. diphenoxyla 2019-0 Yes [id number] TAKE ONE [facility] te-atropine 3-31 (1) ity of 2.5-0.025 00:00: TABLET(S) [facility] mg per 00 BY MOUTH Medical tablet EVERY SIX Branch HOURS NEEDED FOR DIARRHEA. metoprolol 2020-0 Yes [id number] TAKE 1 U nivers tartrate 50 3-31 TABLET BY ity of mg tablet 00:00: MOUTH TWO [facility] 00 TIMES Medical DAILY Branch zolpidem 10 2019-0 Yes [id number] 10mg Take 1 [facility] mg tablet 3-31 tablet by ity o f 00:00: mouth at [place] 00 bedtime as Medical needed for Branch Insomnia. diphenoxyla 2020-0 Yes [id number] TAKE ONE [facility] te-atropine 3-31 (1) ity of 2.5-0.025 00:00: TABLET(S) [facility] mg per 00 BY MOUTH Medical tablet EVERY SIX Branch HOURS NEEDED FOR DIARRHEA. metoprolol 2020-0 Yes [id number] TAKE 1 U nivers tartrate 50 3-31 TABLET BY ity of mg tablet 00:00: MOUTH TWO [facility] 00 TIMES Medical DAILY Branch zolpidem 10 2020-0 Yes [id number] 10mg Take 1 [facility] mg tablet 3-31 tablet by ity o f 00:00: mouth at [place] 00 bedtime as Medical needed for Branch Insomnia. diphenoxyla 2020-0 Yes [id number] TAKE ONE [facility] te-atropine 3-31 (1) ity of 2.5-0.025 00:00: TABLET(S) [facility] mg per 00 BY MOUTH Medical tablet EVERY SIX Branch HOURS NEEDED FOR DIARRHEA. metoprolol 2020-0 Yes [id number] TAKE 1 U nivers tartrate 50 3-31 TABLET BY ity of mg tablet 00:00: MOUTH TWO [facility] 00 TIMES Medical DAILY Branch zolpidem 10 2020-0 Yes [id number] 10mg Take 1 [facility] mg tablet 3-31 tablet by ity o f 00:00: mouth at [place] 00 bedtime as Medical needed for Branch Insomnia. diphenoxyla 2020-0 Yes [id number] TAKE ONE [facility] te-atropine 3-31 (1) ity of 2.5-0.025 00:00: TABLET(S) [facility] mg per 00 BY MOUTH Medical tablet EVERY SIX Branch HOURS NEEDED FOR DIARRHEA. metoprolol 2020-0 Yes [id number] TAKE 1 U nivers tartrate 50 3-31 TABLET BY ity of mg tablet 00:00: MOUTH TWO [facility] 00 TIMES Medical DAILY Branch zolpidem 10 2020-0 Yes [id number] 10mg Take 1 [facility] mg tablet 3-31 tablet by ity o f 00:00: mouth at [place] 00 bedtime as Medical needed for Branch Insomnia. diphenoxyla 2020-0 Yes [id number] TAKE ONE [facility] te-atropine 3-31 (1) ity of 2.5-0.025 00:00: TABLET(S) [facility] mg per 00 BY MOUTH Medical tablet EVERY SIX Branch HOURS NEEDED FOR DIARRHEA. metoprolol 2020-0 Yes [id number] TAKE 1 U nivers tartrate 50 3-31 TABLET BY ity of mg tablet 00:00: MOUTH TWO [facility] 00 TIMES Medical DAILY Branch zolpidem 10 2020-0 Yes [id number] 10mg Take 1 [facility] mg tablet 3-31 tablet by ity o f 00:00: mouth at [place] 00 bedtime as Medical needed for Branch Insomnia. diphenoxyla 2020-0 Yes [id number] TAKE ONE [facility] te-atropine 3-31 (1) ity of 2.5-0.025 00:00: TABLET(S) [facility] mg per 00 BY MOUTH Medical tablet EVERY SIX Branch HOURS NEEDED FOR DIARRHEA. metoprolol 2020-0 Yes [id number] TAKE 1 U nivers tartrate 50 3-31 TABLET BY ity of mg tablet 00:00: MOUTH TWO [facility] 00 TIMES Medical DAILY Branch zolpidem 10 2019-0 Yes [id number] 10mg Take 1 [facility] mg tablet 3-31 tablet by ity o f 00:00: mouth at [place] [address] bedtime as Medical needed for Branch Insomnia. diphenoxyla 2020-0 Yes [id number] TAKE ONE [facility] te-atropine 3-31 (1) ity of 2.5-0.025 00:00: TABLET(S) [facility] mg per 00 BY MOUTH Medical tablet EVERY SIX Branch HOURS NEEDED FOR DIARRHEA. metoprolol 2020-0 Yes [id number] TAKE 1 U nivers tartrate 50 3-31 TABLET BY ity of mg tablet 00:00: MOUTH TWO [facility] 00 TIMES Medical DAILY Branch zolpidem 10 2020-0 Yes [id number] 10mg Take 1 [facility] mg tablet 3-31 tablet by ity o f 00:00: mouth at [place] 00 bedtime as Medical needed for Branch Insomnia. metoprolol 2020-0 Yes [id number] TAKE 1 U nivers tartrate 50 3-31 TABLET BY ity of mg tablet 00:00: MOUTH TWO [facility] 00 TIMES Medical DAILY Branch zolpidem 10 2020-0 Yes [id number] 10mg Take 1 [facility] mg tablet 3-31 tablet by ity o f 00:00: mouth at [place] 00 bedtime as Medical needed for Branch Insomnia. metoprolol 2020-0 Yes [id number] TAKE 1 U nivers tartrate 50 3-31 TABLET BY ity of mg tablet 00:00: MOUTH TWO [facility] 00 TIMES Medical DAILY Branch zolpidem 10 2020-0 Yes [id number] 10mg Take 1 [facility] mg tablet 3-31 tablet by ity o f 00:00: mouth at [place] 00 bedtime as Medical needed for Branch Insomnia. metoprolol 2020-0 Yes [id number] TAKE 1 U nivers tartrate 50 3-31 TABLET BY ity of mg tablet 00:00: MOUTH TWO [facility] 00 TIMES Medical DAILY Branch zolpidem 10 2019-0 Yes [id number] 10mg Take 1 [facility] mg tablet 3-31 tablet by ity o f 00:00: mouth at [place] 00 bedtime as Medical needed for Branch Insomnia. metoprolol 2020-0 Yes [id number] TAKE 1 U nivers tartrate 50 3-31 TABLET BY ity of mg tablet 00:00: MOUTH TWO [facility] 00 TIMES Medical DAILY Branch zolpidem 10 2019-0 Yes [id number] 10mg Take 1 [facility] mg tablet 3-31 tablet by ity o f 00:00: mouth at [place] [address] bedtime as Medical needed for Branch Insomnia. metoprolol 2020-0 Yes [id number] TAKE 1 U nivers tartrate 50 3-31 TABLET BY ity of mg tablet 00:00: MOUTH TWO [facility] 00 TIMES Medical DAILY Branch zolpidem 10 2019-0 Yes [id number] 10mg Take 1 [facility] mg tablet 3-31 tablet by ity o f 00:00: mouth at [place] [address] bedtime as Medical needed for Branch Insomnia. metoprolol 2020-0 Yes [id number] TAKE 1 U nivers tartrate 50 3-31 TABLET BY ity of mg tablet 00:00: MOUTH TWO [facility] 00 TIMES Medical DAILY Branch zolpidem 10 2020-0 Yes [id number] 10mg Take 1 [facility] mg tablet 3-31 tablet by ity o f 00:00: mouth at [place] 00 bedtime as Medical needed for Branch Insomnia. metoprolol 2020-0 Yes [id number] TAKE 1 U nivers tartrate 50 3-31 TABLET BY ity of mg tablet 00:00: MOUTH TWO [facility] 00 TIMES Medical DAILY Branch zolpidem 10 2020-0 Yes [id number] 10mg Take 1 [facility] mg tablet 3-31 tablet by ity o f 00:00: mouth at [place] 00 bedtime as Medical needed for Branch Insomnia. metoprolol Yes [id number] TAKE 1 U nivers tartrate 50 3-31 TABLET BY ity of mg tablet 00:00: MOUTH TWO [facility] 00 TIMES Medical DAILY Branch zolpidem 10 Yes [id number] 10mg Take 1 [facility] mg tablet 3-31 tablet by ity o f 00:00: mouth at [place] 00 bedtime as Medical needed for Branch Insomnia. metoprolol Yes [id number] TAKE 1 U nivers tartrate 50 3-31 TABLET BY ity of mg tablet 00:00: MOUTH TWO [facility] 00 TIMES Medical DAILY Branch zolpidem 10 Yes [id number] 10mg Take 1 [facility] mg tablet 3-31 tablet by ity o f 00:00: mouth at [place] 00 bedtime as Medical needed for Branch Insomnia. zolpidem 10 2020- No [id number] 10mg Take 1 [facility] mg tablet -24 09-04 tablet by ity of 00:00: 00:00 mouth at [place] 00 :00 bedtime as Medical needed for Branch Insomnia. zolpidem 10 2020- No [id number] 10mg Take 1 [facility] mg tablet -24 09-04 tablet by ity of 00:00: 00:00 mouth at [place] 00 :00 bedtime as Medical needed for Branch Insomnia. zolpidem 10 2020- No [id number] 10mg Take 1 [facility] mg tablet 3- 05-04 tablet by ity of 00:00: 00:00 mouth at [place] 00 :00 bedtime as Medical needed for Branch Insomnia. metoprolol 2020- No [id number] TAKE 1 [facility] tartrate 50 - 04-19 TABLET BY it y of mg tablet 00:00: 00:00 MOUTH TWO [place] 00 :00 TIMES Medical DAILY Branch diphenoxyla 2019- No [id number] TAKE ONE [facility] te-atropine - 05-27 (1) ity of 2.5-0.025 00:00: 00:00 TABLET(S) [place] mg per 00 :00 BY MOUTH Medical tablet EVERY SIX Branch HOURS NEEDED FOR DIARRHEA. gabapentin Yes [id number] 300mg Take 1 [facility] 300 mg 3-25 capsule by ity of capsule 00:00: mouth (three) Medical times Branch daily. gabapentin 2020-0 Yes [id number] 300mg Take 1 [facility] 300 mg 3-25 capsule by ity of capsule 00:00: mouth (three) Medical times Branch daily. gabapentin 2020-0 Yes [id number] 300mg Take 1 [facility] 300 mg 3-25 capsule by ity of capsule 00:00: mouth (three) Medical times Branch daily. gabapentin 2020-0 Yes [id number] 300mg Take 1 [facility] 300 mg 3-25 capsule by ity of capsule 00:00: mouth (three) Medical times Branch daily. gabapentin 2020-0 Yes [id number] 300mg Take 1 [facility] 300 mg 3-25 capsule by ity of capsule 00:00: mouth (three) Medical times Branch daily. gabapentin 2020-0 Yes [id number] 300mg Take 1 [facility] 300 mg 3-25 capsule by ity of capsule 00:00: mouth (three) Medical times Branch daily. gabapentin 2020-0 Yes [id number] 300mg Take 1 [facility] 300 mg 3-25 capsule by ity of capsule 00:00: mouth (three) Medical times Branch daily. gabapentin 2020-0 Yes [id number] 300mg Take 1 [facility] 300 mg 3-25 capsule by ity of capsule 00:00: mouth (three) Medical times Branch daily. gabapentin 2020-0 Yes [id number] 300mg Take 1 [facility] 300 mg 3-25 capsule by ity of capsule 00:00: mouth (three) Medical times Branch daily. gabapentin 2020-0 Yes [id number] 300mg Take 1 [facility] 300 mg 3-25 capsule by ity of capsule 00:00: mouth (three) Medical times Branch daily. gabapentin 2020-0 Yes [id number] 300mg Take 1 [facility] 300 mg 3-25 capsule by ity of capsule 00:00: mouth (three) Medical times Branch daily. gabapentin 2020-0 Yes [id number] 300mg Take 1 [facility] 300 mg 3-25 capsule by ity of capsule 00:00: mouth (three) Medical times Branch daily. gabapentin 2020-0 Yes [id number] 300mg Take 1 [facility] 300 mg 3-25 capsule by ity of capsule 00:00: mouth (three) Medical times Branch daily. gabapentin 2020-0 Yes [id number] 300mg Take 1 [facility] 300 mg 3-25 capsule by ity of capsule 00:00: mouth 3 (three) Medical times Branch daily. gabapentin 2020-0 Yes [id number] 300mg Take 1 [facility] 300 mg 3-25 capsule by ity of capsule 00:00: mouth 3 (three) Medical times Branch daily. gabapentin 2020-0 Yes [id number] 300mg Take 1 [facility] 300 mg 3-25 capsule by ity of capsule 00:00: mouth 3 (three) Medical times Branch daily. gabapentin 2020-0 Yes [id number] 300mg Take 1 [facility] 300 mg 3-25 capsule by ity of capsule 00:00: mouth 3 (three) Medical times Branch daily. gabapentin 2020-0 Yes [id number] 300mg Take 1 [facility] 300 mg 3-25 capsule by ity of capsule 00:00: mouth 3 (three) Medical times Branch daily. pregabalin 2020-0 Yes [id number] 75mg Take 1 [facility] (LYRICA) 75 3-20 capsule by it y of mg capsule 00:00: mouth 2 [place] 00 (two) Medical times Branch daily. pregabalin 2020-0 Yes [facility] 75 mg 3-20 ity of capsule 00:00: [place] 00 Medical Branch pregabalin 2020-0 Yes [facility] 75 mg 3-20 ity of capsule 00:00: [place] 00 Medical Branch pregabalin 2020-0 Yes [facility] 75 mg 3-20 ity of capsule 00:00: [place] 00 Medical Branch pregabalin 2020-0 Yes [facility] 75 mg 3-20 ity of capsule 00:00: [place] 00 Medical Branch pregabalin 2020-0 Yes [facility] 75 mg 3-20 ity of capsule 00:00: [place] 00 Medical Branch pregabalin 2020-0 2020- No [facility] s 75 mg 3-20 08-05 ity of capsule 00:00: 00:00 [place] 00 :00 Medical Branch pregabalin 2020-0 2020- No [facility] s 75 mg 3-20 08-05 ity of capsule 00:00: 00:00 [place] 00 :00 Medical Branch pregabalin 2020-0 2020- No [id number] 75mg Take 1 [facility] (LYRICA) 75 3-20 03-25 capsule by i ty of mg capsule 00:00: 00:00 mouth 2 [facility] 00 :00 (two) Medical times Branch daily. valACYclovi 2020-0 Yes 1g Take 1 g Un ke r (VALTREX) 3-02 by mouth 3 it y of 1 gram 20:28: (three) [place] tablet 03 times Medical daily. Branch valACYclovi 2020-0 Yes 1g Take 1 g Un ke r (VALTREX) 3-02 by mouth 3 it y of 1 gram 20:28: (three) [place] tablet 03 times Medical daily. Branch valACYclovi 2020-0 Yes 1g Take 1 g Un ke r (VALTREX) 3-02 by mouth 3 it y of 1 gram 20:28: (three) [place] tablet 03 times Medical daily. Branch valACYclovi 2020-0 Yes 1g Take 1 g Un ke r (VALTREX) 3-02 by mouth 3 it y of 1 gram 20:28: (three) [place] tablet 03 times Medical daily. Branch valACYclovi 2020-0 Yes 1g Take 1 g Un ke r (VALTREX) 3-02 by mouth 3 it y of 1 gram 20:28: (three) [place] tablet 03 times Medical daily. Branch traMADol 50 2020-0 Yes [id number] 50mg Take 1 [facility] mg tablet 2-24 tablet by ity o f 00:00: mouth [place] 00 every 6 Medical (six) Branch hours as needed (pain). traMADol 50 2020-0 Yes [id number] 50mg Take 1 [facility] mg tablet 2-24 tablet by ity o f 00:00: mouth [place] 00 every 6 Medical (six) Branch hours as needed (pain). traMADol 50 2020-0 Yes [id number] 50mg Take 1 [facility] mg tablet 2-24 tablet by ity o f 00:00: mouth [place] 00 every 6 Medical (six) Branch hours as needed (pain). traMADol 50 2020-0 Yes [id number] 50mg Take 1 [facility] mg tablet 2-24 tablet by ity o f 00:00: mouth [place] 00 every 6 Medical (six) Branch hours as needed (pain). traMADol 50 2020-0 Yes [id number] 50mg Take 1 [facility] mg tablet 2-24 tablet by ity o f 00:00: mouth [place] 00 every 6 Medical (six) Branch hours as needed (pain). traMADol 50 2020-0 Yes [id number] 50mg Take 1 [facility] mg tablet 2-24 tablet by ity o f 00:00: mouth [place] 00 every 6 Medical (six) Branch hours as needed (pain). traMADol 50 2020-0 Yes [id number] 50mg Take 1 [facility] mg tablet 2-24 tablet by ity o f 00:00: mouth [place] 00 every 6 Medical (six) Branch hours as needed (pain). traMADol 50 2020-0 Yes [id number] 50mg Take 1 [facility] mg tablet 2-24 tablet by ity o f 00:00: mouth [place] 00 every 6 Medical (six) Branch hours as needed (pain). traMADol 50 2020-0 Yes [id number] 50mg Take 1 [facility] mg tablet 2-24 tablet by ity o f 00:00: mouth [place] 00 every 6 Medical (six) Branch hours as needed (pain). traMADol 50 2020-0 Yes [id number] 50mg Take 1 [facility] mg tablet 2-24 tablet by ity o f 00:00: mouth [place] 00 every 6 Medical (six) Branch hours as needed (pain). traMADol 50 2020-0 Yes [id number] 50mg Take 1 [facility] mg tablet 2-24 tablet by ity o f 00:00: mouth [place] 00 every 6 Medical (six) Branch hours as needed (pain). traMADol 50 2020-0 Yes [id number] 50mg Take 1 [facility] mg tablet 2-24 tablet by ity o f 00:00: mouth [place] 00 every 6 Medical (six) Branch hours as needed (pain). traMADol 50 2020-0 Yes [id number] 50mg Take 1 [facility] mg tablet 2-24 tablet by ity o f 00:00: mouth [place] 00 every 6 Medical (six) Branch hours as needed (pain). traMADol 50 2020-0 Yes [id number] 50mg Take 1 [facility] mg tablet 2-24 tablet by ity o f 00:00: mouth [place] 00 every 6 Medical (six) Branch hours as needed (pain). traMADol 50 2020-0 Yes [id number] 50mg Take 1 [facility] mg tablet 2-24 tablet by ity o f 00:00: mouth [place] 00 every 6 Medical (six) Branch hours as needed (pain). traMADol 50 2020-0 Yes [id number] 50mg Take 1 [facility] mg tablet 2-24 tablet by ity o f 00:00: mouth [place] 00 every 6 Medical (six) Branch hours as needed (pain). traMADol 50 2020-0 Yes [id number] 50mg Take 1 [facility] mg tablet 2-24 tablet by ity o f 00:00: mouth [place] 00 every 6 Medical (six) Branch hours as needed (pain). traMADol 50 2020-0 Yes [id number] 50mg Take 1 [facility] mg tablet 2-24 tablet by ity o f 00:00: mouth [place] 00 every 6 Medical (six) Branch hours as needed (pain). traMADol 50 2020-0 Yes [id number] 50mg Take 1 [facility] mg tablet 2-24 tablet by ity o f 00:00: mouth [place] 00 every 6 Medical (six) Branch hours as needed (pain). traMADol 50 2020-0 Yes [id number] 50mg Take 1 [facility] mg tablet 2-24 tablet by ity o f 00:00: mouth [place] 00 every 6 Medical (six) Branch hours as needed (pain). traMADol 50 2020-0 Yes [id number] 50mg Take 1 [facility] mg tablet 2-24 tablet by ity o f 00:00: mouth [place] 00 every 6 Medical (six) Branch hours as needed (pain). traMADol 50 2020-0 Yes [id number] 50mg Take 1 [facility] mg tablet 2-24 tablet by ity o f 00:00: mouth [place] 00 every 6 Medical (six) Branch hours as needed (pain). traMADol 50 2020-0 Yes [id number] 50mg Take 1 [facility] mg tablet 2-24 tablet by ity o f 00:00: mouth [place] 00 every 6 Medical (six) Branch hours as needed (pain). traMADol 50 2020-0 Yes [id number] 50mg Take 1 [facility] mg tablet 2-24 tablet by ity o f 00:00: mouth [place] 00 every 6 Medical (six) Branch hours as needed (pain). traMADol 50 2020-0 Yes [id number] 50mg Take 1 [facility] mg tablet 2-24 tablet by ity o f 00:00: mouth [place] 00 every 6 Medical (six) Branch hours as needed (pain). traMADol 50 2020-0 Yes [id number] 50mg Take 1 [facility] mg tablet 2-24 tablet by ity o f 00:00: mouth [place] 00 every 6 Medical (six) Branch hours as needed (pain). traMADol 50 2020-0 Yes [id number] 50mg Take 1 [facility] mg tablet 2-24 tablet by ity o f 00:00: mouth [place] 00 every 6 Medical (six) Branch hours as needed (pain). traMADol 50 2020-0 Yes [id number] 50mg Take 1 [facility] mg tablet 2-24 tablet by ity o f 00:00: mouth [place] 00 every 6 Medical (six) Branch hours as needed (pain). traMADol 50 2020-0 Yes [id number] 50mg Take 1 [facility] mg tablet 2-24 tablet by ity o f 00:00: mouth [place] 00 every 6 Medical (six) Branch hours as needed (pain). traMADol 50 2020-0 Yes [id number] 50mg Take 1 [facility] mg tablet 2-24 tablet by ity o f 00:00: mouth [place] 00 every 6 Medical (six) Branch hours as needed (pain). traMADol 50 2019-0 Yes [id number] 50mg Take 1 [facility] mg tablet 2-24 tablet by ity o f 00:00: mouth [place] 00 every 6 Medical (six) Branch hours as needed (pain). traMADol 50 2019-0 Yes [id number] 50mg Take 1 [facility] mg tablet 2-24 tablet by ity o f 00:00: mouth [place] 00 every 6 Medical (six) Branch hours as needed (pain). traMADol 50 2019-0 2020- No [id number] 50mg Take 1 [facility] mg tablet 2-24 05-04 tablet by ity of 00:00: 00:00 mouth [place] 00 :00 every 6 Medical (six) Branch hours as needed (pain). traMADol 50 2019-0 2020- No [id number] 50mg Take 1 [facility] mg tablet 2-24 05-04 tablet by ity of 00:00: 00:00 mouth [place] 00 :00 every 6 Medical (six) Branch hours as needed (pain). traMADol 50 2019-0 2020- No [id number] 50mg Take 1 [facility] mg tablet 2-24 05-04 tablet by ity of 00:00: 00:00 mouth [place] 00 :00 every 6 Medical (six) Branch hours as needed (pain). folic acid 2019- No 400ug Take 400 U nivers 400 mcg 2-21 02-21 mcg by ity of tablet 22:22: 00:00 mouth [place] 12 :00 daily. Medical Branch folic acid 2019- No 400ug Take 400 U nivers 400 mcg 2-21 02-21 mcg by ity of tablet 22:22: 00:00 mouth [place] 12 :00 daily. Medical Branch gabapentin 2020-0 Yes [id number] 100mg Take 1 [facility] 100 mg 2-21 capsule by ity of capsule 00:00: mouth 3 (three) Medical times Branch daily as needed (pain). gabapentin 2020-0 Yes [id number] 100mg Take 1 [facility] 100 mg 2-21 capsule by ity of capsule 00:00: mouth 3 (three) Medical times Branch daily as needed (pain). gabapentin 2020-0 Yes [id number] 100mg Take 1 [facility] 100 mg 2-21 capsule by ity of capsule 00:00: mouth 3 (three) Medical times Branch daily as needed (pain). gabapentin 2020-0 Yes [id number] 100mg Take 1 [facility] 100 mg 2-21 capsule by ity of capsule 00:00: mouth (three) Medical times Branch daily as needed (pain). gabapentin 2020-0 Yes [id number] 100mg Take 1 [facility] 100 mg 2-21 capsule by ity of capsule 00:00: mouth (three) Medical times Branch daily as needed (pain). gabapentin 2020-0 Yes [id number] 100mg Take 1 [facility] 100 mg 2-21 capsule by ity of capsule 00:00: mouth (three) Medical times Branch daily as needed (pain). gabapentin 2020-0 Yes [id number] 100mg Take 1 [facility] 100 mg 2-21 capsule by ity of capsule 00:00: mouth (three) Medical times Branch daily as needed (pain). gabapentin 2020-0 Yes [id number] 100mg Take 1 [facility] 100 mg 2-21 capsule by ity of capsule 00:00: mouth (three) Medical times Branch daily as needed (pain). gabapentin 2020-0 Yes [id number] 100mg Take 1 [facility] 100 mg 2-21 capsule by ity of capsule 00:00: mouth 3 (three) Medical times Branch daily as needed (pain). gabapentin 2020-0 Yes [id number] 100mg Take 1 [facility] 100 mg 2-21 capsule by ity of capsule 00:00: mouth 3 (three) Medical times Branch daily as needed (pain). gabapentin 2020-0 Yes [id number] 100mg Take 1 [facility] 100 mg 2-21 capsule by ity of capsule 00:00: mouth (three) Medical times Branch daily as needed (pain). gabapentin 2019-0 Yes [id number] 100mg Take 1 [facility] 100 mg 2-21 capsule by ity of capsule 00:00: mouth 3 [place] 00 (three) Medical times Branch daily as needed (pain). gabapentin 2019-0 2020- No [id number] 100mg Take 1 [facility] 100 mg 2-21 03-25 capsule by ity of capsule 00:00: 00:00 mouth 3 [place] 00 :00 (three) Medical times Branch daily as needed (pain). DIPHENOXYLA Yes [id number] TAKE ONE [facility] TE-ATROPINE 3-08 (1) ity of 2.5-0.025 00:00: TABLET(S) [place] mg per 00 BY MOUTH Medical tablet EVERY SIX Branch HOURS NEEDED FOR DIARRHEA. DIPHENOXYLA Yes [id number] TAKE ONE [facility] TE-ATROPINE 3-08 (1) ity of 2.5-0.025 00:00: TABLET(S) [place] as mg per 00 BY MOUTH Medical tablet EVERY SIX Branch HOURS NEEDED FOR DIARRHEA. DIPHENOXYLA Yes [id number] TAKE ONE [facility] TE-ATROPINE 3-08 (1) ity of 2.5-0.025 00:00: TABLET(S) [place] mg per 00 BY MOUTH Medical tablet EVERY SIX Branch HOURS NEEDED FOR DIARRHEA. DIPHENOXYLA Yes [id number] TAKE ONE [facility] TE-ATROPINE 3-08 (1) ity of 2.5-0.025 00:00: TABLET(S) [place] [facility] mg per 00 BY MOUTH Medical tablet EVERY SIX Branch HOURS NEEDED FOR DIARRHEA. DIPHENOXYLA Yes [id number] TAKE ONE [facility] TE-ATROPINE 3-08 (1) ity of 2.5-0.025 00:00: TABLET(S) [place] mg per 00 BY MOUTH Medical tablet EVERY SIX Branch HOURS NEEDED FOR DIARRHEA. DIPHENOXYLA 0 Yes [id number] TAKE ONE [facility] TE-ATROPINE 3-08 (1) ity of 2.5-0.025 00:00: TABLET(S) [place] mg per 00 BY MOUTH Medical tablet EVERY SIX Branch HOURS NEEDED FOR DIARRHEA. DIPHENOXYLA Yes [id number] TAKE ONE [facility] TE-ATROPINE 3-08 (1) ity of 2.5-0.025 00:00: TABLET(S) [place] [facility] mg per 00 BY MOUTH Medical tablet EVERY SIX Branch HOURS NEEDED FOR DIARRHEA. DIPHENOXYLA 2018-0 Yes [id number] TAKE ONE [facility] TE-ATROPINE 3-08 (1) ity of 2.5-0.025 00:00: TABLET(S) [place] mg per 00 BY MOUTH Medical tablet EVERY SIX Branch HOURS NEEDED FOR DIARRHEA. DIPHENOXYLA 2018-0 Yes [id number] TAKE ONE [facility] TE-ATROPINE 3-08 (1) ity of 2.5-0.025 00:00: TABLET(S) [place] as mg per 00 BY MOUTH Medical tablet EVERY SIX Branch HOURS NEEDED FOR DIARRHEA. DIPHENOXYLA Yes [id number] TAKE ONE [facility] TE-ATROPINE 3-08 (1) ity of 2.5-0.025 00:00: TABLET(S) [place] as mg per 00 BY MOUTH Medical tablet EVERY SIX Branch HOURS NEEDED FOR DIARRHEA. DIPHENOXYLA Yes [id number] TAKE ONE Univers TE-ATROPINE 3-08 (1) ity of 2.5-0.025 00:00: TABLET(S) [place] as mg per 00 BY MOUTH Medical tablet EVERY SIX Branch HOURS NEEDED FOR DIARRHEA. DIPHENOXYLA Yes [id number] TAKE ONE [facility] TE-ATROPINE 3-08 (1) ity of 2.5-0.025 00:00: TABLET(S) [place] as mg per 00 BY MOUTH Medical tablet EVERY SIX Branch HOURS NEEDED FOR DIARRHEA. DIPHENOXYLA Yes [id number] TAKE ONE [facility] TE-ATROPINE 3-08 (1) ity of 2.5-0.025 00:00: TABLET(S) [place] as mg per 00 BY MOUTH Medical tablet EVERY SIX Branch HOURS NEEDED FOR DIARRHEA. DIPHENOXYLA 2019 Yes [id number] TAKE ONE [facility] TE-ATROPINE 3-08 (1) ity of 2.5-0.025 00:00: TABLET(S) [place] as mg per 00 BY MOUTH Medical tablet EVERY SIX Branch HOURS NEEDED FOR DIARRHEA. DIPHENOXYLA 2020- No [id number] TAKE ONE [facility] TE-ATROPINE 3-08 03-31 (1) ity of 2.5-0.025 00:00: 00:00 TABLET(S) [place] mg per 00 :00 BY MOUTH Medical tablet EVERY SIX Branch HOURS NEEDED FOR DIARRHEA. METOPROLOL Yes [id number] TAKE ONE Univers TARTRATE 50 2-21 (1) ity of mg tablet 00:00: TABLET(S) [place] as 00 BY MOUTH Medical TWICE A Branch DAY. METOPROLOL 2019- No [id number] TAKE ONE [facility] TARTRATE 50 2-21 -21 (1) ity of mg tablet 00:00: 00:00 TABLET(S) [place] 00 :00 BY MOUTH Medical TWICE A Branch DAY. METOPROLOL 2019- No [id number] TAKE ONE [facility] TARTRATE 50 2-21 - (1) ity of mg tablet 00:00: 00:00 TABLET(S) [place] 00 :00 BY MOUTH Medical TWICE A Branch DAY. folic acid 2017-04 Yes 400ug Take 400 Un ke 400 mcg 1-13 mcg by ity of tablet 20:21: mouth [place] 54 daily. Medical Branch zolpidem 10 Yes [id number] 10mg Take 1 [facility] mg tablet 9-06 tablet by ity o f 00:00: mouth at [place] 00 bedtime as Medical needed for Branch Insomnia. metoprolol Yes [id number] TAKE 1 U nivers tartrate 50 9-06 TABLET BY ity of mg tablet 00:00: MOUTH TWO [facility] as 00 TIMES Medical DAILY Branch zolpidem 10 Yes [id number] 10mg Take 1 [facility] mg tablet 9-06 tablet by ity o f 00:00: mouth at [place] 00 bedtime as Medical needed for Branch Insomnia. metoprolol Yes [id number] TAKE 1 U nivers tartrate 50 9-06 TABLET BY ity of mg tablet 00:00: MOUTH TWO [place] as 00 TIMES Medical DAILY Branch zolpidem 10 Yes [id number] 10mg Take 1 [facility] mg tablet 9-06 tablet by ity o f 00:00: mouth at [place] 00 bedtime as Medical needed for Branch Insomnia. metoprolol Yes [id number] TAKE 1 U nivers tartrate 50 9-06 TABLET BY ity of mg tablet 00:00: MOUTH TWO [place] as 00 TIMES Medical DAILY Branch zolpidem 10 Yes [id number] 10mg Take 1 [facility] mg tablet 9-06 tablet by ity o f 00:00: mouth at [place] 00 bedtime as Medical needed for Branch Insomnia. metoprolol Yes [id number] TAKE 1 U nivers tartrate 50 9-06 TABLET BY ity of mg tablet 00:00: MOUTH TWO [place] as 00 TIMES Medical DAILY Branch zolpidem 10 Yes [id number] 10mg Take 1 [facility] mg tablet 9-06 tablet by ity o f 00:00: mouth at [place] 00 bedtime as Medical needed for Branch Insomnia. metoprolol Yes [id number] TAKE 1 U nivers tartrate 50 9-06 TABLET BY ity of mg tablet 00:00: MOUTH TWO [place] as 00 TIMES Medical DAILY Branch zolpidem 10 Yes [id number] 10mg Take 1 [facility] mg tablet 9-06 tablet by ity o f 00:00: mouth at [place] 00 bedtime as Medical needed for Branch Insomnia. metoprolol Yes [id number] TAKE 1 U nivers tartrate 50 9-06 TABLET BY ity of mg tablet 00:00: MOUTH TWO [place] as 00 TIMES Medical DAILY Branch zolpidem 10 Yes [id number] 10mg Take 1 [facility] mg tablet 9-06 tablet by ity o f 00:00: mouth at [place] [address] bedtime as Medical needed for Branch Insomnia. metoprolol Yes [id number] TAKE 1 U nivers tartrate 50 9-06 TABLET BY ity of mg tablet 00:00: MOUTH TWO [place] as 00 TIMES Medical DAILY Branch zolpidem 10 Yes [id number] 10mg Take 1 [facility] mg tablet 9-06 tablet by ity o f 00:00: mouth at [place] 00 bedtime as Medical needed for Branch Insomnia. metoprolol Yes [id number] TAKE 1 U nivers tartrate 50 9-06 TABLET BY ity of mg tablet 00:00: MOUTH TWO [place] as 00 TIMES Medical DAILY Branch zolpidem 10 Yes [id number] 10mg Take 1 [facility] mg tablet 9-06 tablet by ity o f 00:00: mouth at [place] 00 bedtime as Medical needed for Branch Insomnia. metoprolol Yes [id number] TAKE 1 U nivers tartrate 50 9-06 TABLET BY ity of mg tablet 00:00: MOUTH TWO [place] as 00 TIMES Medical DAILY Branch pantoprazol Yes [id number] 40mg Take 1 [facility] e 40 mg EC 9- tablet by ity of tablet 00:00: mouth [place] 00 daily. Medical Branch zolpidem 10 Yes [id number] 10mg Take 1 [facility] mg tablet 9-06 tablet by ity o f 00:00: mouth at [place] 00 bedtime as Medical needed for Branch Insomnia. metoprolol Yes [id number] TAKE 1 U nivers tartrate 50 9-06 TABLET BY ity of mg tablet 00:00: MOUTH TWO [place] as 00 TIMES Medical DAILY Branch zolpidem 10 Yes [id number] 10mg Take 1 [facility] mg tablet 9- tablet by ity o f 00:00: mouth at [place] 00 bedtime as Medical needed for Branch Insomnia. metoprolol Yes [id number] TAKE 1 U nivers tartrate 50 9-06 TABLET BY ity of mg tablet 00:00: MOUTH TWO [place] as 00 TIMES Medical DAILY Branch zolpidem 10 Yes [id number] 10mg Take 1 [facility] mg tablet 9- tablet by ity o f 00:00: mouth at [place] 00 bedtime as Medical needed for Branch Insomnia. metoprolol Yes [id number] TAKE 1 U nivers tartrate 50 9-06 TABLET BY ity of mg tablet 00:00: MOUTH TWO [place] as 00 TIMES Medical DAILY Branch zolpidem 10 Yes [id number] 10mg Take 1 [facility] mg tablet - tablet by ity o f 00:00: mouth at [place] 00 bedtime as Medical needed for Branch Insomnia. metoprolol Yes [id number] TAKE 1 U nivers tartrate 50 9-06 TABLET BY ity of mg tablet 00:00: MOUTH TWO [place] as 00 TIMES Medical DAILY Branch zolpidem 10 Yes [id number] 10mg Take 1 [facility] mg tablet 9-06 tablet by ity o f 00:00: mouth at [place] 00 bedtime as Medical needed for Branch Insomnia. metoprolol Yes [id number] TAKE 1 U nivers tartrate 50 9-06 TABLET BY ity of mg tablet 00:00: MOUTH TWO [place] as 00 TIMES Medical DAILY Branch zolpidem 10 2020- No [id number] 10mg Take 1 [facility] mg tablet 12-31- tablet by ity of 00:00: 00:00 mouth at [place] 00 :00 bedtime as Medical needed for Branch Insomnia. metoprolol 2020- No [id number] TAKE 1 [facility] tartrate 50 12-31 TABLET BY it y of mg tablet 00:00: 00:00 MOUTH TWO [place] 00 :00 TIMES Medical DAILY Branch pantoprazol 2019- No [id number] 40mg Take 1 [facility] e 40 mg EC 12-31 tablet by ity of tablet 00:00: 00:00 mouth [place] 00 :00 daily. Medical Branch pantoprazol 2019- No [id number] 40mg Take 1 [facility] e 40 mg EC 12-31 tablet by ity of tablet 00:00: 00:00 mouth [place] 00 :00 daily. Medical Branch HUMIRA PEN Yes [facility] 40 mg/0.8 4-16 ity of mL 00:00: [place] injection 00 [facility] Yes [facility] 40 mg/0.8 4-16 ity of mL 00:00: [place] injection 00 Medical Branch [facility] Yes [facility] 40 mg/0.8 4-16 ity of mL 00:00: [place] injection 00 Medical Branch [facility] 2015- Yes [facility] 40 mg/0.8 4-16 ity of mL 00:00: [place] injection 00 Medical Branch [facility] 2015- Yes [facility] 40 mg/0.8 4-16 ity of mL 00:00: [place] injection 00 Medical Branch [facility] 2016- Yes [facility] 40 mg/0.8 4-16 ity of mL 00:00: [place] injection 00 Medical Branch [facility] 2015- Yes [facility] 40 mg/0.8 4-16 ity of mL 00:00: [place] injection 00 Medical Branch HUMIRA PEN 2016- Yes [facility] 40 mg/0.8 4-16 ity of mL 00:00: [place] injection 00 Medical Branch HUMIRA PEN 2015- Yes [facility] 40 mg/0.8 4-16 ity of mL 00:00: [place] injection 00 Medical Branch HUMIRA PEN Yes [facility] 40 mg/0.8 4-16 ity of mL 00:00: [place] injection 00 Medical Branch [facility] 2015- Yes [facility] 40 mg/0.8 4-16 ity of mL 00:00: [place] injection 00 Medical Branch [facility] Yes [facility] 40 mg/0.8 4-16 ity of mL 00:00: [place] injection 00 Medical Branch [facility] 2015- Yes [facility] 40 mg/0.8 4-16 ity of mL 00:00: [place] injection 00 Medical Branch [facility] 2015- Yes [facility] 40 mg/0.8 4-16 ity of mL 00:00: [place] injection Medical Branch [facility] 2015- Yes [facility] 40 mg/0.8 4-16 ity of mL 00:00: [place] injection Medical Branch [facility] Yes [facility] 40 mg/0.8 4-16 ity of mL 00:00: [place] injection Medical Branch [facility] Yes [facility] 40 mg/0.8 4-16 ity of mL 00:00: [place] injection Medical Branch [facility] Yes [facility] 40 mg/0.8 4-16 ity of mL 00:00: [place] injection Medical Branch [facility] Yes [facility] 40 mg/0.8 4-16 ity of mL 00:00: [place] injection 00 Medical Branch [facility] Yes [facility] 40 mg/0.8 4-16 ity of mL 00:00: [place] injection 00 Medical Branch [facility] Yes [facility] 40 mg/0.8 4-16 ity of mL 00:00: [place] injection 00 Medical Branch [facility] 2015- Yes [facility] 40 mg/0.8 4-16 ity of mL 00:00: [place] injection Medical Branch [facility] 2015- Yes [facility] 40 mg/0.8 4-16 ity of mL 00:00: [place] injection Medical Branch [facility] 2015- Yes [facility] 40 mg/0.8 4-16 ity of mL 00:00: [place] injection 00 Medical Branch [facility] 2015- Yes [facility] 40 mg/0.8 4-16 ity of mL 00:00: [place] injection Medical Branch [facility] Yes [facility] 40 mg/0.8 4-16 ity of mL 00:00: [place] injection Medical Branch [facility] Yes [facility] 40 mg/0.8 4-16 ity of mL 00:00: [place] injection Medical Branch [facility] Yes [facility] 40 mg/0.8 4-16 ity of mL 00:00: [place] injection 00 Medical Branch [facility] 2015-0 Yes [facility] 40 mg/0.8 4-16 ity of mL 00:00: [place] injection 00 Medical Branch [facility] 2015-0 Yes [facility] 40 mg/0.8 4-16 ity of mL 00:00: [place] injection 00 Medical Branch [facility] 2015- Yes [facility] 40 mg/0.8 4-16 ity of mL 00:00: [place] injection 00 Medical Branch [facility] 2015- Yes [facility] 40 mg/0.8 4-16 ity of mL 00:00: [place] injection Medical Branch [facility] 2015- Yes [facility] 40 mg/0.8 4-16 ity of mL 00:00: [place] injection 00 Medical Branch [facility] 2015- Yes [facility] 40 mg/0.8 4-16 ity of mL 00:00: [place] injection Medical Branch [facility] Yes [facility] 40 mg/0.8 4-16 ity of mL 00:00: [place] injection 00 Medical Branch [facility] 2015- Yes [facility] 40 mg/0.8 4-16 ity of mL 00:00: [place] injection 00 Medical Branch [facility] Yes [facility] 40 mg/0.8 4-16 ity of mL 00:00: [place] injection 00 Medical Branch [facility] 2015-0 Yes [facility] 40 mg/0.8 4-16 ity of mL 00:00: [place] injection 00 Medical Branch [facility] Yes [facility] 40 mg/0.8 4-16 ity of mL 00:00: [place] injection 00 Medical Branch [facility] 2015-0 Yes [facility] 40 mg/0.8 4-16 ity of mL 00:00: [place] injection 00 Medical Branch [facility] 2015- Yes [facility] 40 mg/0.8 4-16 ity of mL 00:00: [place] injection 00 Medical Branch [facility] 2015- Yes [facility] 40 mg/0.8 4-16 ity of mL 00:00: [place] injection 00 Medical Branch [facility] 2015- Yes [facility] 40 mg/0.8 4-16 ity of mL 00:00: [place] injection 00 Medical Branch [facility] 2015- Yes [facility] 40 mg/0.8 4-16 ity of mL 00:00: [place] injection Medical Branch HUMIRA PEN 2016-0 Yes [facility] 40 mg/0.8 4-16 ity of mL 00:00: [place] injection 00 Medical Branch HUMIRA PEN 2016-0 Yes [facility] 40 mg/0.8 4-16 ity of mL 00:00: [place] injection 00 Medical Branch HUMIRA PEN 2016-0 Yes [facility] 40 mg/0.8 4-16 ity of mL 00:00: [place] injection 00 Medical Branch [facility] 2016-0 Yes [facility] 40 mg/0.8 4-16 ity of mL 00:00: [place] injection 00 Medical Branch HUMIRA PEN 2016-0 Yes [facility] 40 mg/0.8 4-16 ity of mL 00:00: [place] injection 00 Medical Branch HUMIRA PEN 2016-0 Yes [facility] 40 mg/0.8 4-16 ity of mL 00:00: [place] injection 00 Medical Branch [facility] 2016-0 Yes [facility] 40 mg/0.8 4-16 ity of mL 00:00: [place] injection 00 Medical Branch [facility] 2016-0 Yes [facility] 40 mg/0.8 4-16 ity of mL 00:00: [place] injection 00 Medical Branch [facility] 2016-0 Yes [facility] 40 mg/0.8 4-16 ity of mL 00:00: [place] injection 00 Medical Branch [facility] 2016-0 Yes [facility] 40 mg/0.8 4-16 ity of mL 00:00: [place] injection 00 [facility] Branch Immunizations Ordered Filled Immunization Date Status Comments [facility] e Immunization Name Name Influenza Virus 2021-03-12 Completed Universit y of Vaccine - Whole 00:00:00 [facility] SARS-COV-2 COVID-19 2021-03-12 Completed Unive rsity of MODERNA VACCINE 00:00:00 [facility] Influenza Virus 2021-03-12 Completed Universit y of Vaccine - Whole 00:00:00 [facility] SARS-COV-2 COVID-19 2021-03-12 Completed Unive rsity of MODERNA VACCINE 00:00:00 [facility] Influenza Virus 2021-03-12 Completed Universit y of Vaccine - Whole 00:00:00 [facility] SARS-COV-2 COVID-19 2021-03-12 Completed Unive rsity of MODERNA VACCINE 00:00:00 [facility] Influenza Virus 2021-03-12 Completed Universit y of Vaccine - Whole 00:00:00 [facility] ical Branch SARS-COV-2 COVID-19 2021-03-12 Completed Unive rsity of MODERNA VACCINE 00:00:00 [facility] Influenza Virus 2021-03-12 Completed Universit y of Vaccine - Whole 00:00:00 [facility] SARS-COV-2 COVID-19 2021-03-12 Completed Unive rsity of MODERNA VACCINE 00:00:00 [facility] SARS-COV-2 COVID-19 2020-05-29 Completed Unive rsity of MODERNA VACCINE 00:00:00 [facility] SARS-COV-2 COVID-19 2020-05-29 Completed Unive rsity of MODERNA VACCINE 00:00:00 [facility] SARS-COV-2 COVID-19 2020-05-29 Completed Unive rsity of MODERNA VACCINE 00:00:00 [facility] SARS-COV-2 COVID-19 2020-05-29 Completed Unive rsity of MODERNA VACCINE 00:00:00 [facility] SARS-COV-2 COVID-19 2020-05-29 Completed Unive rsity of MODERNA VACCINE 00:00:00 [facility] SARS-COV-2 COVID-19 2020-05-29 Completed Unive rsity of MODERNA VACCINE 00:00:00 [facility] SARS-COV-2 COVID-19 2020-05-29 Completed Unive rsity of MODERNA VACCINE 00:00:00 [facility] SARS-COV-2 COVID-19 2020-05-29 Completed Unive rsity of MODERNA VACCINE 00:00:00 [facility] ical Branch SARS-COV-2 COVID-19 2020-05-29 Completed Unive rsity of MODERNA VACCINE 00:00:00 [facility] ical Branch SARS-COV-2 COVID-19 2020-05-29 Completed Unive rsity of MODERNA VACCINE 00:00:00 [facility] SARS-COV-2 COVID-19 2020-05-29 Completed Unive rsity of MODERNA VACCINE 00:00:00 [facility] SARS-COV-2 COVID-19 2020-05-29 Completed Unive rsity of MODERNA VACCINE 00:00:00 [place] [facility] SARS-COV-2 COVID-19 2020-05-29 Completed Unive rsity of MODERNA VACCINE 00:00:00 [place] [facility] ical Branch SARS-COV-2 COVID-19 2020-05-29 Completed Unive rsity of MODERNA VACCINE 00:00:00 [place] [facility] ical Branch SARS-COV-2 COVID-19 2020-05-29 Completed Unive rsity of MODERNA VACCINE 00:00:00 [place] [facility] ical Branch SARS-COV-2 COVID-19 2020-05-29 Completed Unive rsity of MODERNA VACCINE 00:00:00 [place] [facility] ical Branch SARS-COV-2 COVID-19 2020-05-29 Completed Unive rsity of MODERNA VACCINE 00:00:00 [place] [facility] ical Branch SARS-COV-2 COVID-19 2020-05-29 Completed Unive rsity of MODERNA VACCINE 00:00:00 [place] [facility] ical Branch SARS-COV-2 COVID-19 2020-05-29 Completed Unive rsity of MODERNA VACCINE 00:00:00 [place] [facility] ical Branch SARS-COV-2 COVID-19 2020-05-29 Completed Unive rsity of MODERNA VACCINE 00:00:00 [place] [facility] ical Branch SARS-COV-2 COVID-19 2020-05-01 Completed Unive rsity of MODERNA VACCINE 00:00:00 [place] [facility] ical Branch SARS-COV-2 COVID-19 2020-05-01 Completed Unive rsity of MODERNA VACCINE 00:00:00 [place] [facility] ical Branch SARS-COV-2 COVID-19 2020-05-01 Completed Unive rsity of MODERNA VACCINE 00:00:00 [place] [facility] ical Branch SARS-COV-2 COVID-19 2020-05-01 Completed Unive rsity of MODERNA VACCINE 00:00:00 [place] [facility] ical Branch SARS-COV-2 COVID-19 2020-05-01 Completed Unive rsity of MODERNA VACCINE 00:00:00 [place] [facility] ical Branch SARS-COV-2 COVID-19 2020-05-01 Completed Unive rsity of MODERNA VACCINE 00:00:00 [place] [facility] ical Branch SARS-COV-2 COVID-19 2020-05-01 Completed Unive rsity of MODERNA VACCINE 00:00:00 [place] [facility] ical Branch SARS-COV-2 COVID-19 2020-05-01 Completed Unive rsity of MODERNA VACCINE 00:00:00 [facility] ical Branch SARS-COV-2 COVID-19 2020-05-01 Completed Unive rsity of MODERNA VACCINE 00:00:00 [facility] ical Branch SARS-COV-2 COVID-19 2020-05-01 Completed Unive rsity of MODERNA VACCINE 00:00:00 [facility] ical Branch SARS-COV-2 COVID-19 2020-05-01 Completed Unive rsity of MODERNA VACCINE 00:00:00 [facility] ical Branch SARS-COV-2 COVID-19 2020-05-01 Completed Unive rsity of MODERNA VACCINE 00:00:00 [facility] ical Branch SARS-COV-2 COVID-19 2020-05-01 Completed Unive rsity of MODERNA VACCINE 00:00:00 [facility] ical Branch SARS-COV-2 COVID-19 2020-05-01 Completed Unive rsity of MODERNA VACCINE 00:00:00 [facility] ical Branch SARS-COV-2 COVID-19 2020-05-01 Completed Unive rsity of MODERNA VACCINE 00:00:00 [facility] ical Branch SARS-COV-2 COVID-19 2020-05-01 Completed Unive rsity of MODERNA VACCINE 00:00:00 [facility] SARS-COV-2 COVID-19 2020-05-01 Completed Unive rsity of MODERNA VACCINE 00:00:00 [facility] ical Branch SARS-COV-2 COVID-19 2020-05-01 Completed Unive rsity of MODERNA VACCINE 00:00:00 [facility] ical Branch SARS-COV-2 COVID-19 2020-05-01 Completed Unive rsity of MODERNA VACCINE 00:00:00 [facility] SARS-COV-2 COVID-19 2020-05-01 Completed Unive rsity of MODERNA VACCINE 00:00:00 [facility] Zoster Vaccine 2020-04-15 Completed University of Recombinant 00:00:00 [facility] Zoster Vaccine 2020-04-15 Completed University of Recombinant 00:00:00 [facility] Zoster Vaccine 2020-04-15 Completed University of Recombinant 00:00:00 [facility] Zoster Vaccine 2020-04-15 Completed University of Recombinant 00:00:00 [facility] Zoster Vaccine 2020-04-15 Completed University of Recombinant 00:00:00 [facility] PPD (TB) 2019-11-30 Completed University of 00:00:00 [facility] PPD (TB) 2019-11-30 Completed University of 00:00:00 [facility] PPD (TB) 2019-11-30 Completed University of 00:00:00 [facility] PPD (TB) 2019-11-30 Completed University of 00:00:00 [facility] PPD (TB) 2019-11-30 Completed University of 00:00:00 [facility] PPD (TB) 2019-11-30 Completed University of 00:00:00 [facility] PPD (TB) 2019-11-30 Completed University of 00:00:00 [facility] PPD (TB) 2019-11-30 Completed University of 00:00:00 [facility] PPD (TB) 2019-11-30 Completed University of 00:00:00 [facility] PPD (TB) 2019-11-30 Completed University of 00:00:00 [facility] PPD (TB) 2019-11-30 Completed University of 00:00:00 [facility] PPD (TB) 2019-11-30 Completed University of 00:00:00 [facility] PPD (TB) 2019-11-30 Completed University of 00:00:00 [facility] PPD (TB) 2019-11-30 Completed University of 00:00:00 [facility] PPD (TB) 2019-11-30 Completed University of 00:00:00 [facility] PPD (TB) 2019-11-30 Completed University of 00:00:00 [facility] PPD (TB) 2019-11-30 Completed University of 00:00:00 [facility] PPD (TB) 2019-11-30 Completed University of 00:00:00 [facility] PPD (TB) 2019-11-30 Completed University of 00:00:00 [facility] PPD (TB) 2019-11-30 Completed University of 00:00:00 [facility] PPD (TB) 2019-11-30 Completed University of 00:00:00 [facility] PPD (TB) 2019-11-30 Completed University of 00:00:00 [facility] PPD (TB) 2019-11-30 Completed University of 00:00:00 [facility] PPD (TB) 2019-11-30 Completed University of 00:00:00 [facility] PPD (TB) 2019-11-30 Completed University of 00:00:00 [facility] PPD (TB) 2019-11-30 Completed University of 00:00:00 [facility] PPD (TB) 2019-11-30 Completed University of 00:00:00 [facility] PPD (TB) 2019-11-30 Completed University of 00:00:00 [facility] Influenza High Dose 2018-03-09 Completed Unive rsity of 00:00:00 [facility] Influenza High Dose 2018-03-09 Completed [facility] of 00:00:00 [place] [facility] [facility] Influenza High Dose 2018-03-09 Completed Unive rsity of 00:00:00 [facility] Influenza High Dose 2018-03-09 Completed Unive rsity of 00:00:00 [facility] Influenza High Dose 2018-03-09 Completed Unive rsity of 00:00:00 [facility] Influenza High Dose 2018-03-09 Completed Unive rsity of 00:00:00 [facility] Influenza High Dose 2018-03-09 Completed Unive rsity of 00:00:00 [facility] Influenza High Dose 2018-03-09 Completed Unive rsity of 00:00:00 [facility] Influenza High Dose 2018-03-09 Completed Unive rsity of 00:00:00 [facility] Influenza High Dose 2018-03-09 Completed Unive rsity of 00:00:00 [facility] Influenza High Dose 2018-03-09 Completed Unive rsity of 00:00:00 [facility] Influenza High Dose 2018-03-09 Completed Unive rsity of 00:00:00 [facility] Influenza High Dose 2018-03-09 Completed Unive rsity of 00:00:00 [facility] Influenza High Dose 2018-03-09 Completed Unive rsity of 00:00:00 [facility] Influenza High Dose 2018-03-09 Completed Unive rsity of 00:00:00 [facility] Influenza High Dose 2018-03-09 Completed Unive rsity of 00:00:00 [facility] Influenza High Dose 2018-03-09 Completed Unive rsity of 00:00:00 [facility] Influenza High Dose 2018-03-09 Completed Unive rsity of 00:00:00 [facility] Influenza High Dose 2018-03-09 Completed Unive rsity of 00:00:00 [facility] Influenza High Dose 2018-03-09 Completed Unive rsity of 00:00:00 [facility] Influenza High Dose 2018-03-09 Completed Unive rsity of 00:00:00 [facility] Influenza High Dose 2018-03-09 Completed Unive rsity of 00:00:00 [facility] Influenza High Dose 2018-03-09 Completed Unive rsity of 00:00:00 [facility] Influenza High Dose 2018-03-09 Completed Unive rsity of 00:00:00 [facility] Influenza High Dose 2018-03-09 Completed Unive rsity of 00:00:00 [facility] Influenza High Dose 2018-03-09 Completed Unive rsity of 00:00:00 [facility] Influenza High Dose 2018-03-09 Completed Unive rsity of 00:00:00 [facility] Influenza High Dose 2018-03-09 Completed Unive rsity of 00:00:00 [facility] Influenza High Dose 2018-03-09 Completed Unive rsity of 00:00:00 [facility] Influenza High Dose 2018-03-09 Completed Unive rsity of 00:00:00 [facility] Influenza High Dose 2018-03-09 Completed Unive rsity of 00:00:00 [facility] Influenza High Dose 2018-03-09 Completed Unive rsity of 00:00:00 [facility] Influenza High Dose 2018-03-09 Completed Unive rsity of 00:00:00 [facility] Influenza High Dose 2018-03-09 Completed Unive rsity of 00:00:00 [facility] Influenza High Dose 2018-03-09 Completed Unive rsity of 00:00:00 [facility] Influenza High Dose 2018-03-09 Completed Unive rsity of 00:00:00 [facility] Influenza High Dose 2018-03-09 Completed Unive rsity of 00:00:00 [facility] Influenza High Dose 2018-03-09 Completed Unive rsity of 00:00:00 [facility] Influenza High Dose 2018-03-09 Completed Unive rsity of 00:00:00 [facility] Influenza High Dose 2018-03-09 Completed Unive rsity of 00:00:00 [facility] Influenza High Dose 2018-03-09 Completed Unive rsity of 00:00:00 [facility] Influenza High Dose 2018-03-09 Completed Unive rsity of 00:00:00 [facility] Influenza High Dose 2018-03-09 Completed Unive rsity of 00:00:00 [facility] Influenza High Dose 2018-03-09 Completed Unive rsity of 00:00:00 [facility] Influenza High Dose 2018-03-09 Completed Unive rsity of 00:00:00 [facility] Influenza High Dose 2018-03-09 Completed Unive rsity of 00:00:00 [facility] Influenza High Dose 2018-03-09 Completed Unive rsity of 00:00:00 [facility] Influenza High Dose 2018-03-09 Completed Unive rsity of 00:00:00 [facility] Influenza High Dose 2018-03-09 Completed Unive rsity of 00:00:00 [facility] Influenza High Dose 2018-03-09 Completed Unive rsity of 00:00:00 [facility] Influenza High Dose 2018-03-09 Completed Unive rsity of 00:00:00 [facility] Influenza High Dose 2018-03-09 Completed Unive rsity of 00:00:00 [facility] Influenza High Dose 2018-03-09 Completed Unive rsity of 00:00:00 [facility] Influenza High Dose 2018-03-09 Completed Unive rsity of 00:00:00 [facility] PPD (TB) 2016-08-26 Completed University of 00:00:00 [facility] PPD (TB) 2016-08-26 Completed University of 00:00:00 [facility] PPD (TB) 2016-08-26 Completed University of 00:00:00 [facility] PPD (TB) 2016-08-26 Completed University of 00:00:00 [facility] PPD (TB) 2016-08-26 Completed University of 00:00:00 [facility] PPD (TB) 2016-08-26 Completed University of 00:00:00 [facility] PPD (TB) 2016-08-26 Completed University of 00:00:00 [facility] PPD (TB) 2016-08-26 Completed University of 00:00:00 [facility] PPD (TB) 2016-08-26 Completed University of 00:00:00 [facility] PPD (TB) 2016-08-26 Completed University of 00:00:00 [facility] PPD (TB) 2016-08-26 Completed University of 00:00:00 [facility] PPD (TB) 2016-08-26 Completed University of 00:00:00 [facility] PPD (TB) 2016-08-26 Completed University of 00:00:00 [facility] PPD (TB) 2016-08-26 Completed University of 00:00:00 [facility] PPD (TB) 2016-08-26 Completed University of 00:00:00 [facility] PPD (TB) 2016-08-26 Completed University of 00:00:00 [facility] PPD (TB) 2016-08-26 Completed University of 00:00:00 [facility] PPD (TB) 2016-08-26 Completed University of 00:00:00 [facility] PPD (TB) 2016-08-26 Completed University of 00:00:00 [facility] PPD (TB) 2016-08-26 Completed University of 00:00:00 [facility] PPD (TB) 2016-08-26 Completed University of 00:00:00 [facility] PPD (TB) 2016-08-26 Completed University of 00:00:00 [facility] PPD (TB) 2016-08-26 Completed University of 00:00:00 [facility] PPD (TB) 2016-08-26 Completed University of 00:00:00 [facility] PPD (TB) 2016-08-26 Completed University of 00:00:00 [facility] PPD (TB) 2016-08-26 Completed University of 00:00:00 [facility] PPD (TB) 2016-08-26 Completed University of 00:00:00 [facility] PPD (TB) 2016-08-26 Completed University of 00:00:00 [facility] PPD (TB) 2016-08-26 Completed University of 00:00:00 [facility] PPD (TB) 2016-08-26 Completed University of 00:00:00 [facility] PPD (TB) 2016-08-26 Completed University of 00:00:00 [facility] PPD (TB) 2016-08-26 Completed University of 00:00:00 [facility] PPD (TB) 2016-08-26 Completed University of 00:00:00 [facility] PPD (TB) 2016-08-26 Completed University of 00:00:00 [facility] PPD (TB) 2016-08-26 Completed University of 00:00:00 [facility] PPD (TB) 2016-08-26 Completed University of 00:00:00 [facility] PPD (TB) 2016-08-26 Completed University of 00:00:00 [facility] PPD (TB) 2016-08-26 Completed University of 00:00:00 [facility] PPD (TB) 2016-08-26 Completed University of 00:00:00 [facility] PPD (TB) 2016-08-26 Completed University of 00:00:00 [facility] PPD (TB) 2016-08-26 Completed University of 00:00:00 [facility] PPD (TB) 2016-08-26 Completed University of 00:00:00 [facility] PPD (TB) 2016-08-26 Completed University of 00:00:00 [facility] PPD (TB) 2016-08-26 Completed University of 00:00:00 [facility] PPD (TB) 2016-08-26 Completed University of 00:00:00 [facility] PPD (TB) 2016-08-26 Completed University of 00:00:00 [facility] PPD (TB) 2016-08-26 Completed University of 00:00:00 [facility] PPD (TB) 2016-08-26 Completed University of 00:00:00 [facility] PPD (TB) 2016-08-26 Completed University of 00:00:00 [facility] PPD (TB) 2016-08-26 Completed University of 00:00:00 [facility] PPD (TB) 2016-08-26 Completed University of 00:00:00 [facility] PPD (TB) 2016-08-26 Completed University of 00:00:00 [facility] PPD (TB) 2016-08-26 Completed University of 00:00:00 [facility] PPD (TB) 2016-08-26 Completed University of 00:00:00 [facility] Vital Signs Vital Name Observation Time Observation Value Comments Source Systolic blood 2020-08-28 15:53:00 165 mm[Hg] Univer sity of pressure [facility] Diastolic blood 2020-08-28 15:53:00 70 mm[Hg] Unive rsity of pressure [facility] Heart rate 2020-08-28 15:53:00 60 /min Universi [facility] Body temperature 2020-08-28 15:53:00 35.5 Altagracia Univ ersity [facility] Body weight 2020-08-28 15:53:00 50.803 kg Universi ty of [facility] BMI 2020-08-28 15:53:00 18.08 kg/m2 Universi ty of [facility] Systolic blood 2019-11-30 15:54:00 174 mm[Hg] Univer sity of pressure [facility] Diastolic blood 2019-11-30 15:54:00 75 mm[Hg] Unive rsity of pressure [facility] Heart rate 2019-11-30 15:54:00 69 /min Universi ty of [facility] Body weight 2019-11-30 15:54:00 53.071 kg Universi ty of [facility] BMI 2019-11-30 15:54:00 18.88 kg/m2 Universi ty of [facility] Systolic blood 2019-09-08 15:10:00 173 mm[Hg] Univer sity of pressure [facility] Diastolic blood 2019-09-08 15:10:00 83 mm[Hg] Unive rsity of pressure [facility] Heart rate 2019-09-08 14:25:00 61 /min Universi ty of [facility] Body temperature 2019-09-08 14:25:00 37.17 Altagracia Univ ersity of [facility] Respiratory rate 2019-09-08 14:25:00 16 /min Univ ersity of [facility] Body height 2019-09-08 14:25:00 167.6 cm Universi ty of [facility] Body weight 2019-09-08 14:25:00 53.252 kg Universi ty of [facility] BMI 2019-09-08 14:25:00 18.95 kg/m2 Universi ty of [facility] Oxygen saturation in 2019-09-08 14:25:00 99 /min University Arterial blood by [facility] Branch Systolic blood 2019-09-08 15:10:00 173 mm[Hg] Univer sity of pressure [facility] Diastolic blood 2019-09-08 15:10:00 83 mm[Hg] Unive rsity of pressure [facility] Heart rate 2019-09-08 14:25:00 61 /min Universi ty of [facility] Body temperature 2019-09-08 14:25:00 37.17 Altagracia Univ ersity of [facility] Respiratory rate 2019-09-08 14:25:00 16 /min Univ ersity of [facility] Body height 2019-09-08 14:25:00 167.6 cm [facility] Body weight 2019-09-08 14:25:00 53.252 kg [facility] BMI 2019-09-08 14:25:00 18.95 kg/m2 [facility] Oxygen saturation in 2019-09-08 14:25:00 99 /min University of Arterial blood by [place] [employer] [facility] oxim[facility] Branch Systolic blood 2019-06-27 20:25:00 133 mm[Hg] Univer sity of pressure [facility] Diastolic blood 2019-06-27 20:25:00 71 mm[Hg] Unive rsity of pressure [facility] Heart rate 2019-06-27 20:25:00 69 /min [facility] Body temperature 2019-06-27 20:25:00 36.67 Altagracia Univ ers[facility] of [facility] Body height 2019-06-27 20:25:00 167.6 cm [facility] Body weight 2019-06-27 20:25:00 53.071 kg [facility] BMI 2019-06-27 20:25:00 18.88 kg/m2 [facility] Systolic blood 2019-06-23 22:33:00 143 mm[Hg] Univer sity of pressure [facility] Diastolic blood 2019-06-23 22:33:00 77 mm[Hg] Unive rsity of pressure [facility] Heart rate 2019-06-23 22:33:00 78 /min [facility] Body temperature 2019-06-23 22:33:00 37.5 Altagracia Univ ers[facility] of [facility] Body weight 2019-06-23 22:33:00 55.339 kg [facility] BMI 2019-06-23 22:33:00 19.69 kg/m2 [facility] Oxygen saturation in 2019-06-23 22:33:00 98 /min University of Arterial blood by [facility] Branch Systolic blood 2019-06-17 22:14:00 189 mm[Hg] Univer sity of pressure [facility] Diastolic blood 2019-06-17 22:14:00 82 mm[Hg] Unive rsity of pressure [facility] Heart rate 2019-06-17 22:14:00 78 /min [facility] Respiratory rate 2019-06-17 22:14:00 20 /min [facility] Body height 2019-06-17 22:14:00 167.6 cm [facility] Body weight 2019-06-17 22:14:00 56.065 kg [facility] BMI 2019-06-17 22:14:00 19.95 kg/m2 [facility] Oxygen saturation in 2019-06-17 22:14:00 99 /min [facility] Arterial blood by [facility] oxim[facility] Branch Procedures Procedure Date / Time Performing Clinician Source Performed ASSIGNMENT OF BENEFITS 2021-03-25 16:33:51 Doctor [place], [facility] Name [facility] MEDICATION CORRESPONDENCE 2020-10-09 05:01:00 Doctor Sylvie, [facility] Name [facility] INSURANCE CORRESPONDENCE 2020-08-30 05:01:00 Doctor Sylvie, [facility] POCT URINALYSIS 2020-08-28 00:00:00 Zackery Montes [facility] CT THORAX WO CONTRAST 2020-01-20 17:38:04 Zackery Montes [facility] REFERRAL- 2019-12-29 05:01:00 Doctor Sylvie, [facility] REQUEST/RESPONSE [facility] DEXA AXIAL (HIP AND 2019-12-06 19:35:10 Zackery Montes [facility] SPINE) [facility] PPD (TB) 2019-11-30 16:06:08 Zackery Montes [facility] INSURANCE CORRESPONDENCE 2019-07-28 05:01:00 Doctor Sylvie, [facility] EXTERNAL PROVIDER RECORDS 2019-06-30 06:01:00 Doctor Sylvie [facility] ASSIGNMENT OF BENEFITS 2019-06-17 22:08:32 Doctor Sylvie, [facility] Plan of Care Planned Activity Planned Date Details Comments Source Future Scheduled 2029-12-05 Screening for [facility] Test 00:00:00 osteoporosis Medical Branch (procedure) [code = 446099660] Future Scheduled 2029-12-05 Screening for [facility] Test 00:00:00 osteoporosis Medical Branch (procedure) [code = 944829975] Future Scheduled 2021-01-19 Screening for [facility] Test 00:00:00 malignant neoplasm of Medica l Branch lung (procedure) [code = 842356940] Future Scheduled 2021-01-19 Screening for [facility] Test 00:00:00 malignant neoplasm of Medica l Branch lung (procedure) [code = 886741773] Future Scheduled 2020 INFLUENZA VACCINE Univer [facility] Test 00:00:00 (Season Ended) [code = Medic al Branch INFLUENZA VACCINE (Season Ended)] Future Scheduled 2020 [facility] (Season Ended) [code = Medic al Branch INFLUENZA VACCINE (Season Ended)] Future Scheduled 2014 Medicare Annual [facility] Test 00:00:00 Wellness Visit Medical Bran h (procedure) [code = 106565203258609] Future Scheduled 2014 [facility] 65+ (1 of 1 - PPSV23) Medica l Branch [code = PNEUMOCOCCAL VACCINES 65+ (1 of 1 - PPSV23)] Future Scheduled 2014 Medicare Annual [facility] Test 00:00:00 Wellness Visit Medical Bran h (procedure) [code = 034663686592456] Future Scheduled 2014 [facility]OCOCCAL [facility]INES [facility]00 65+ (1 of 1 - PPSV23) Medica l Branch [code = PNEUMOCOCCAL VACCINES 65+ (1 of 1 - PPSV23)] Future Scheduled 1999-12-27 Screening for occult Uni [facility] Test 00:00:00 blood in feces Medical Branc h (procedure) [code = 278593238] Future Scheduled 1999-12-27 Stool DNA-based [facility] Test 00:00:00 colorectal cancer Medical Br anch screening (procedure) [code = 679668740626491] Future Scheduled 1999-12-27 Flexible fiberoptic [facility] Test 00:00:00 sigmoidoscopy Medical Branch (procedure) [code = 18107594] Future Scheduled 1999-12-27 Screening for [facility] Test 00:00:00 malignant neoplasm of Medica l Branch colon (procedure) [code = 138441555] Future Scheduled 1999-12-27 Screening for [facility] Test 00:00:00 malignant neoplasm of Medica l Branch colon (procedure) [code = 054893893] Future Scheduled 1999-12-27 Zoster Recombinant [facility] Test 00:00:00 Vaccine (SHINGRIX) (1 Medica l Branch of 2) [code = Zoster Recombinant Vaccine (SHINGRIX) (1 of 2)] Future Scheduled 1999-12-27 Screening for occult [facility] Test 00:00:00 blood in feces Medical Branc h (procedure) [code = 884831912] Future Scheduled 1999-12-27 Stool DNA-based [facility] Test 00:00:00 colorectal cancer Medical Br anch screening (procedure) [code = 943161911039961] Future Scheduled 1999-12-27 Flexible fiberoptic [facility] Test 00:00:00 sigmoidoscopy Medical Branch (procedure) [code = 65258093] Future Scheduled 1999-12-27 Screening for [facility] Test 00:00:00 malignant neoplasm of Medica l Branch colon (procedure) [code = 458942720] Future Scheduled 1999-12-27 Screening for [facility] Test 00:00:00 malignant neoplasm of Medica l Branch colon (procedure) [code = 328398339] Future Scheduled 1999-12-27 Zoster Recombinant [facility] Test 00:00:00 Vaccine (SHINGRIX) (1 Medica l Branch of 2) [code = Zoster Recombinant Vaccine (SHINGRIX) (1 of 2)] Future Scheduled 1989 Screening for [facility] Test 00:00:00 malignant neoplasm of Medica l Branch breast (procedure) [code = 357674694] Future Scheduled 1989 Screening for [facility] Test 00:00:00 malignant neoplasm of Medica l Branch breast (procedure) [code = 902018383] Future Scheduled 1968 DTaP,Tdap,and Td [facility] Vaccines (1 - Tdap) Medical Branch [code = DTaP,Tdap,and Td Vaccines (1 - Tdap)] Future Scheduled 1968 DTaP,Tdap,and Td Univers ity [facility] Test 00:00:00 Vaccines (1 - Tdap) Medical Branch [code = DTaP,Tdap,and Td Vaccines (1 - Tdap)] Future Scheduled 1967-12-27 Hepatitis C screening [facility] [place] [facility] 00:00:00 (procedure) [code = Medical Branch 248369540] Future Scheduled 1967-12-27 Hepatitis C screening [facility] [place] [facility] 00:00:00 (procedure) [code = Medical Branch 068860175] Future Scheduled 1961 Depression screening [facility] [place] Test 00:00:00 (procedure) [code = Medical Branch 731122976] Future Scheduled 1961 Depression screening [facility] [place] Test 00:00:00 (procedure) [code = Medical Branch 239419946] Encounters Start End Encounter Admission Attending Care Care Encounter Source Date/Time Date/Time Type Type Clinicians Facility Department ID 2021-03-01 Outpatient [facility] [id number] [place] 15:44:15 [facility] 2021-04-22 2021-04-22 Refill [facility] [id number] Univers 00:00:00 00:00:00 [facility] [id number] it y of [facility] [id number] Abdirahman as PROFESSIO [phone] [address] OFFICE BUILDING ONE 2021-04-22 2021-04-22 Telephone [facility] [id number] Univers 00:00:00 00:00:00 [facility] [id number] it y of [place] [id number] Abdirahman as [place]?BLEA [phone] Ca dical MAEEY [address] [place] [address] MEDICAL OFFICE BUILDING 2021-03-25 2021-03-25 Hospital Radiology [facility] [id number] Univers 10:40:27 23:59:00 Encounter [place] [id number] ity [id number] [id number] [facility] 804 Branch 2021-03-25 2021-03-25 Outpatient R RADIOLOGY [facility] [id number] Univers 11:30:00 11:30:00 [id number] ity of [facility] 2021-03-25 2021-03-25 Hospital Radiology [facility] [id number] Univers 10:38:35 10:39:00 Encounter [place] [id number] ity [id number] [id number] [facility] 804 Branch 2021-03-25 2021-03-25 Outpatient R RADIOLOGY [facility] [id number] Univers 00:00:00 10:39:00 ity of [facility] 2021-03-25 2021-03-25 Orders Doctor LIBRADO [id number] Univers 00:00:00 00:00:00 Only Unassigned, RAJ [id number] ity of [facility] [id number] Abdirahman as [phone] [facility] 009 Branch 2020-12-05 2020-12-[address] [facility] [id number] Univers 13:00:00 13:00:00 ZACKERY [id number] ity [facility] 2020-11-26 2020-11-26 Outpatient R JESSICAWEST, [facility] [id number] Univers 14:30:00 14:30:00 [facility] [id number] ity [facility] 2020-11-26 2020-11-26 [id number] Univers 14:30:00 14:30:00 [facility] 2020-10-24 2020-10-24 Telephone [facility] [id number] Univers 00:00:00 00:00:00 [facility] [id number] it y of [place] [id number] Abdirahman as Professio [id number] [address] Office Building One 2020-10-09 2020-10-09 Orders Doctor LIBRADO [id number] Univers 00:00:00 00:00:00 Only Unassigned, RAJ [id number] ity of [facility] [id number] Abdirahman as [phone] [address] 2020-10-05 2020-10-[address] [facility] [id number] Univers 16:30:00 16:30:00 ZACKERY ity [facility] 2020-10-05 2020-10-05 Outpatient R [facility] [id number] Univers 13:00:00 13:00:00 [id number] ity [facility] 2020-10-04 2020-10-04 Outpatient R [facility] [id number] Univers 18:00:00 18:00:00 [id number] ity [facility] 2020-10-04 2020-10-04 Outpatient R [facility] [id number] Univers 18:00:00 18:00:00 ity [facility] 2020-10-04 2020-10-04 Telephone [facility] [facility] 1.2.840.114 [id number] Univers 00:00:00 00:00:00 [facility] 350.1.13.10 it y of [place] 4.2.7.2.686 Abdirahman as Professio [phone] Ca dic[address] Office [facility] One 2020-10-03 2020-10-03 Telephone [facility] 1.2.840.114 [id number] Univers 00:00:00 00:00:00 [facility] 350.1.13.10 it y of [place] 4.2.7.2.686 Abdirahman as Professio [phone] [address] One 2020-08-30 2020-08-30 Telephone [facility] 1.2.840.114 [id number] Univers 00:00:00 00:00:00 [facility] 350.1.13.10 it y of [place] 4.2.7.2.686 Abdirahman as Professio [phone] [address] One 2020-08-30 2020-08-30 Orders Doctor PAVON 1.2.840.114 [id number] Univers 00:00:00 00:00:00 Only Unassigned, RAJ 350.1.13.10 ity of [facility] 4.2.7.2.686 Abdirahman as [phone] [address] 2020-08-29 2020-08-29 Telephone Jyoti [facility] 1.2.840.114 [id number] Univers 00:00:00 00:00:00 [facility] 350.1.13.10 it y of [place] 4.2.7.2.686 Abdirahman as Professio [phone] [address] Office Building One 2020-08-29 2020-08-29 Patient Doctor [facility] 1.2.840.114 [id number] Univers 00:00:00 00:00:00 Secure Msg Unassigned, Health 350.1.13.10 ity of [place] 4.2.7.2.686 Abdirahman as Professio [phone] [address] Office [facility] 2020-08-28 2020-08-28 Aircraft Sales Representative Lab, Adc Fam Pob I [facility] 1.2. 840.114 [id number] Univers 11:22:59 11:42:59 Visit Zackery Montes rachel [facility] 350.1.13 .10 ity of [place] 4.2.7.2.686 Abdirahman as Professio [phone] [address] Office [facility] One 2020-08-28 2020-08-28 Office Jyoti [facility] 1.2.840.114 [id number] Univers 10:36:55 11:21:08 Visit [facility] 350.1.13.10 it y of [place] 4.2.7.2.686 Abdirahman as Professio [phone] [address] Office [facility] 2020-08-28 2020-08-28 Outpatient Daja MONTES [facility] [id number] N-20 Univers 10:45:00 10:45:00 ZACKERY [id number] tiff [facility] 2020-08-28 2020-08-28 Outpatient Daja MONTES [facility] [id number] Univers 10:45:00 10:45:00 ZACKERY matthew [facility] 2020-08-11 2020-08-11 [facility] 1.2.840.114 [id number] Univers 00:00:00 00:00:00 Zackery Chi 350.1.13.10 i ty [place] 4.2.7.2.686 [facility] [phone] Ca dical nal 044 [facility] 2020-05-29 2020-05-29 Outpatient Daja YI [facility] 0N-[id number] Univers 12:20:00 12:20:00 [facility] [id number] [facility] 2020-05-29 2020-05-29 Outpatient R YI [facility] [id number] Univers 12:20:00 12:20:00 BANDAR [facility] 2020-05-01 2020-05-01 Outpatient R YI, [facility] 0N-20 Univers 15:30:00 15:30:00 BANDAR [id number] [facility] 2020-05-01 2020-05-01 Outpatient Daja RICHMOND [facility] [id number] Univers 15:30:00 15:30:00 BANDAR [facility] 2020-05-01 2020-05-01 Outpatient Daja MARTINUM [facility] [id number] Univers 15:30:00 15:30:00 BANDAR [facility] 2020-01-20 2020-01-20 [facility] 1.2.925.496 [id number] Univers 12:23:23 23:59:00 Encounter Zackery [facility].13.10 [facility] [place] 4.2.7.2.686 [facility] [phone] [address] 2020-01-20 2020-01-20 Outpatient Daja WANGSILVESTRE [facility] [id number] N-20 Univers 00:00:00 00:00:00 ZACKERY [id number] [facility] 2020-01-20 2020-01-20 Outpatient Daja MONTES [facility] [id number] Univers 00:00:00 00:00:00 ZACKERY [facility] 2020-01-12 2020-01-12 [facility] [id number] N-20 Univers 00:00:00 00:00:00 ZACKERY [id number] ity of [facility] 2020-01-04 2020-01-04 Telephone [facility] 1.2.840.114 [id number] Univers 00:00:00 00:00:00 [facility]ackery [facility] 350.1.13.10 it y of [place] Chi 4.2.7.2.686 Abdirahman as Professio [phone] [facility] [address] One 2019-12-29 2019-12-29 Orders Doctor LIBRADO 1.2.840.114 [id number] Univers 00:00:00 00:00:00 Only Unassigned, RAJ 350.1.13.10 ity of [place] [facility] 4.2.7.2.686 Abdirahman as [phone] [facility] [address] 2019-12-06 2019-12-06 [facility] 1.2.849.223 [id number] Univers 13:40:00 23:59:00 Encounter Zackery Chi 350.1.13.10 ity of [place] [phone] [facility] [address] 2019-12-06 2019-12-06 [facility] [id number] N-20 Univers 00:00:00 00:00:00 ZACKERY [id number] ity of [facility] 2019-12-06 2019-12-06 Outpatient R JYOTI [facility] [id number] Univers 00:00:00 00:00:00 ZACKERY ity [facility] 2019-12-02 2019-12-02 Nurse Nurse, [facility] 1.2.840.114 [id number] Univers 14:02:17 14:17:17 Visit Zackery Montes 350.1.1 3.10 it[place] [phone] Ca dical [facility] 044 [facility] 2019-12-02 2019-12-02 Outpatient R [facility] [id number] -[id number] Univers 14:15:00 14:15:00 ity [facility] 2019-12-02 2019-12-02 Outpatient R JYOTI, [facility] [id number] Univers 14:15:00 14:15:00 ZACKERY [facility] 2019-11-30 2019-11-30 Aircraft Sales Representative 2, Adc Lab [facility] 1.2.840.114 [id number] Univers 11:21:20 11:36:20 Visit Zackery Montes 350.1.1 3.10 ity [place] [phone] [facility] [address] [facility] 2019-11-30 2019-11-30 [facility] 1.2.840.114 [id number] Univers 10:38:51 11:19:28 Visit Zackery Ohton 350.1.13.10 i ty of [place] [phone] [address] 2019-11-30 2019-11-30 Outpatient Daja [facility] [id number] N-20 Univers 10:45:00 10:45:00 ZACKERY [facility] 2019-11-30 2019-11-30 Outpatient D[facility] [id number] Univers 10:45:00 10:45:00 ZACKERY [facility] 2019-09-21 2019-09-21 [facility] 1.2.840.114 [id number] Univers 00:00:00 00:00:00 [facility] 350.1.13.10 it y of [place] 4.2.7.2.686 Abdirahman as Professio [phone] [address] 2019-09-21 2019-09-21 [facility] 1.2.840.114 [id number] Univers 00:00:00 00:00:00 [facility] 350.1.13.10 it y of [place] Chi 4.2.7.2.686 Abdirahman as Professio [phone] [address] 2019-09-21 2019-09-21 [facility] 1.2.840.114 [id number] 00:00:00 00:00:00 Zackery Health 350.1.13.10 [place] 4.2.7.2.686 Professio [phone] [place] [address] Office Building [facility] 2019-09-21 2019-09-21 [facility] 1.2.840.114 [id number] 00:00:00 00:00:00 Zackery Health 350.1.13.10 [place] 4.2.7.2.686 Professio [phone] [place] [address] Office Building [facility] 2019-09-08 2019-09-08 Outpatient R [facility] [id number] -[id number] Univers 14:00:00 14:00:00 [id number] ity [facility] 2019-09-08 2019-09-08 Urgent Provider, [facility] 1.2.[id number] [facility] 09:18:26 10:15:27 Care Bonnie [facility] 350.1.13.10 ity of [place] 4.2.7.2.686 Abdirahman as Professio [phone] Ca dical [address] Office Building [facility] 2019-09-08 2019-09-08 Urgent Provider, [facility] 1.2.551.804 [id number] 09:18:26 10:15:27 Care [facility] 350.1.13.10 Care [place] 4.2.7.2.686 Professio [phone] [place] [address] Office Building [facility] 2019-09-08 2019-09-08 Outpatient R [facility] [id number] Univers 09:20:00 09:20:00 SARAH ity [facility] 2019-08-15 2019-08-15 Patient Doctor LIBRADO 1.2.840.114 [id number] Univers 00:00:00 00:00:00 Secure Msg Unassigned, RAJ 350.1.13.[address] [facility] 4.2.7.2.686 Abdirahman as [phone] [address] 2019-08-15 2019-08-15 Patient Doctor LIBRADO 1.2.840.114 [id number] 00:00:00 00:00:00 Secure Msg Unassigned, RAJ 350.1.13.10 [place] [facility] 4.2.7.2.686 [phone] 019 2019-08-05 2019-08-05 Outpatient R [facility] [id number] -[id number] Univers 12:00:00 12:00:00 ity [facility] 2019-08-05 2019-08-05 Outpatient [facility] [id number] Univers 12:00:00 12:00:00 SARAH ity [facility] 2019-08-05 2019-08-05 Telephone [facility] 1..840.114 [id number] Univers 00:00:00 00:00:00 [facility] 350.1.13.10 it y of [place] 4.2.7.2.686 Abdirahman as Professio [phone] [address] 2019-08-01 2019-08-[address] [facility] [id number] N-20 Univers 13:00:00 13:00:00 ZACKERY ity [facility] 2019-08-01 2019-08-[address] [facility] [id number] Univers 13:00:00 13:00:00 ZACKERY [facility] 2019-07-28 2019-07-28 Telephone [facility] 1..840.114 [id number] Univers 00:00:00 00:00:00 Zackery Chi 350.1.13.10 i ty of [place] [phone] [address] 2019-07-28 2019-07-28 Telephone [facility] 1..840.114 [id number] Univers 00:00:00 00:00:00 [facility] 350.1.13.10 it y of [place] Chi 4.2.7.2.686 Abdirahman as Professio [phone] [address] 2019-07-28 2019-07-28 Orders Doctor PAVON 1..840.114 [id number] Univers 00:00:00 00:00:00 Only Unassigned, RAJ 350.1.13.10 [facility] 4.2.7.2.686 Abdirahman as [phone] [address] 2019-07-27 2019-07-27 Telephone [facility] 1.2.840.114 [id number] Univers 00:00:00 00:00:00 Zackery Chi 350.1.13.10 i ty of [place].2.[place] [phone] [address] 2019-07-26 2019-07-[address] [facility] [id number] N-20 Univers 10:30:00 10:30:00 ZACKERY [id number] ity [facility] 2019-07-26 2019-07-[address] [facility] [id number] Univers 10:30:00 10:30:00 [facility] 2019-07-26 2019-07-26 Telemedici [facility] 1.2.840.114 [id number] Univers 09:33:21 09:48:21 ne Visit Zackery Chi 350.1.13.10 ity of [place].2.[place] [phone] [address] 2019-07-19 2019-07-19 Telephone [facility] 1..840.114 [id number] Univers 00:00:00 00:00:00 [facility] 350.1.13.10 it y of [place] 4.2.7.2.686 Abdirahman as Professio [phone] [address] 2019-07-14 2019-07-14 Telephone [facility] 1.2.840.114 [id number] Univers 00:00:00 00:00:00 [facility] 350.1.13.10 it y of [place] 4.2.7.2.686 Abdirahman as Professio [phone] [address] 2019-06-30 2019-06-30 Orders Doctor PAVON 1.2.840.114 [id number] Univers 00:00:00 00:00:00 Only Unassigned, RAJ 350.1.13.10 ity of [place] [facility] 4.2.7.2.686 Abdirahman as [phone] [address] 2019-06-27 2019-06-27 Office [facility] 1.2.840.114 [id number] Univers 14:07:51 14:37:51 Visit Zackery Feliciano 350.1.13.10 it y of [place] Chi 4.2.7.2.686 Abdirahman as Professio [phone] [address] Office [facility] 2019-06-27 2019-06-27 Outpatient R VIDALMALLORYSIL[facility] [id number] N-20 Univers 14:30:00 14:30:00 ZACKERY [id number] y [facility] 2019-06-27 2019-06-27 Outpatient [facility] [id number] Univers 14:30:00 14:30:00 ZACKERY [facility] 2019-06-24 2019-06-24 [facility]phone [facility] ..220.906 [id number] Univers 00:00:00 00:00:00 [facility] 350.1.13.10 i ty of [place] 4.2.7.2.686 Abdirahman as Professio [phone] [address] Office [facility] 2019-06-23 2019-06-23 Office [facility] 1..840.114 [id number] Univers 16:08:23 17:13:10 Visit [facility]al [facility] 350.1.13.10 i ty of [place] 4.2.7.2.686 Abdirahman as Professio [phone] [address] Office [facility] 2019-06-23 2019-06-23 Outpatient R [facility] [id number] Univers 16:20:00 16:20:00 OPAL [id number] [facility] 2019-06-23 2019-06-23 Outpatient R [facility] [id number] Univers 16:20:00 16:20:00 OPAL [facility] 2019-06-23 2019-06-23 Telephone [facility] ..840.114 [id number] Univers 00:00:00 00:00:00 [facility] 350.1.13.10 it y of [place] 4.2.7.2.686 Abdirahman as Professio [phone] Ca dical nal [address] One 2019-06-23 2019-06-23 Emergency MARIS, [facility] [id number] [address] [place] 00:00:00 00:00:00 TALON [address] 2019-06-22 2019-06-22 Telephone [facility] 1.2.840.[id number] [facility] 00:00:00 00:00:00 [facility] 350.1.13.10 it y of [place] 4.2.7.2.686 Abdirahman as Professio [phone] Ca dical nal [address] One 2019-06-20 2019-06-20 Telephone [facility] 1.2.840.114 [id number] Univers 00:00:00 00:00:00 [facility] 350.1.13.10 it y of [place] 4.2.7.2.686 Abdirahman as Professio [phone] Ca dical nal [address] One 2019-06-20 2019-06-20 Emergency CÉSAR, [facility] [id number] [address] [place] 00:00:00 00:00:00 SEE 089 [address] i 2019-06-17 2019-06-17 Office [facility] 1.2.840.114 [id number] Univers 16:09:35 16:24:35 Visit [facility] 350.1.13.10 it y of [place] 4.2.7.2.686 Abdirahman as Professio [phone] Ca dical nal [address] One 2019-06-17 2019-06-17 Orders Doctor LIBRADO 1.2.840.114 [id number] Univers 00:00:00 00:00:00 Only Unassigned, RAJ 350.1.13.10 ity of [facility] 4.2.7.2.686 Abdirahman as [phone] [place] [address] [address] Results Test Description Test Time Test Comments Results Result Comments Source POCT URINALYSIS W SPECIFIC GRAVITY 2020-08-28 16:20:00 Test Item Value Reference Range Interpretation Comme nts POCT U SP GRAV (test code = 3255) 1.020 mg/dl 1.005-1.025 POCT PH U (test code = 3254) 5 mg/dl 5-8 POCT U LEUK EST (test code = 3263) + Negative - Negative POCT U NIT (test code = 3262) neg Negative - Negative POCT U PROT (test code = 3259) trace Negative - Negative POCT U GLU (test code = 3256) neg Negative - Negative POCT U KETONE (test code = 3258) neg Negative - Negative POCT U UROBILI (test code = 3260) normal 0.2-1 POCT U BILI (test code = 3261) neg Negative - Negative POCT U BLD (test code = 3257) trace Negative - Negative POCT U COLOR (test code = 3266) pale POCT U APPEAR (test code = 3267) clear [facility] [id number] 20:21:33 A right upper lobe 7 mm nodule is consistent with a benign calcifiedgranuloma. No further follow-upis required for this nodule. Tree-in-bud nodularity in the medial right lower lobe is nonspecific butcommonly seen with atypical infectious/inflammatory etiologies. Follow-upCT chest is recommended in 6-8 weeks after appropriate therapy to documentresolution. Mildly enlarged subcarinal lymph node. Attention on follow-up imaging. Preliminary Report Dictated by Resident: Jose Miguel Flores MD., have reviewed this study and agree with theabove report.PROCEDURE: CT CHEST NON CONTRAST - NODULE PROTOCOL CLINICAL INDICATION: Right upper lobe nodule COMPARISON: ?None. DOSE: ?82 mGycmtotal exam DLP TECHNIQUE: Low dose helical CT was acquired from lung apices to bases, andreconstructed at 1.00 mm every 0.625 mm, without intravenous contrast. ?MIPand coronal & sagittal MPR imageswere generated and reviewed. (DFOV = 35cm) FINDINGS: Lower Neck/Thyroid: Unremarkable. Lungs: Tree-in-bud nodularity in the posteromedial right lower lobe(12:240) and medial most/paraesophageal right lower lobe with mildsurrounding round glass attenuation. A calcified granuloma in thesubpleural right upper lobe measures 7 mm (2:40). Central Airway: Tracheobronchial calcifications. The central airwaysarepatent. No bronchiectasis. Right lower lobe distal subsegmental mucousplugging. Pleura: Mild biapical pleural thickening. No pleural effusion orpneumothorax. Thoracic Aorta and Great Vessels: ?Normal in diameter. Mild scattered archcalcifications are noted. Pulmonary Arteries: Unremarkable. Heart and Pericardium: No detectable coronary arterial calcification.Unremarkable cardiac morphology and pericardium. Lymph Nodes: A mildly enlarged subcarinal lymph node shows heterogeneousattenuation, measuring 11 mm (12:117). Mediastinum: Unremarkable. Thoracic Spine and Chest Wall: Exaggerated thoracic kyphosis with preservedthoracic vertebral body heights. No acute skeletal abnormality. Nosuspicious lytic or sclerotic osseous lesion. Other Lines/Tubes/Devices/Hardware: None Visualized Upper Abdomen: Ath erosclerosis in the abdominal aorta affectingthe ostia of the celiac, SMA and bilateral renal arteryorigins. Thevisualized portions of the upper abdomen are otherwise unremarkable withinthe limits of a low-dose, noncontrast CT. [facility], Radiant Results Inft User - 01/20/2020 3:22 PM CDTPROCEDURE: CT CHEST NON CONTRAST - NODULE PROTOCOLCLINICAL INDICATION: Right upper lobe noduleCOMPARISON: None.DOSE: 82 mGycm total exam DLP TECHNIQUE: Low dose helical CT was acquired from lung apices to bases, andreconstructed at 1.00 mm every 0.625 mm, without intravenous contrast. MIPand coronal & sagittalMPR images were generated and reviewed. (DFOV = 35cm)FINDINGS:Lower Neck/Thyroid: Unremarkable.Lungs: Tree-in-bud nodularity in the posteromedial right lower lobe(12:240) and medial most/paraesophagealright lower lobe with mildsurrounding round glass attenuation. A calcified granuloma in thesubpleural right upper lobe measures 7 mm (2:40).Central Airway: Tracheobronchial calcifications. The central airways arepatent. No bronchiectasis. Right lower lobe distal subsegmental mucousplugging.Pleura: Mild biapical pleural thickening. No pleural effusion orpneumothorax.Thoracic Aorta and Great Vessels: Normal in diameter. Mild scattered archcalcifications are noted.Pulmonary Arteries: Unremarkable.Heart and Pericardium: No detectable coronary arterial calcification.Unremarkable cardiac morphology and pericardium.Lymph Nodes: A mildly enlarged subcarinal lymph node shows heterogeneousattenuation, measuring 11 mm (12:117).Mediastinum: Unremarkable.Thoracic Spine and Chest Wall: Exaggerated thoracic kyphosis with preservedthoracic vertebral body heights. No acute skeletal abnormality. Nosuspicious lytic or sclerotic osseous lesion.Other Lines/Tubes/Devices/Hardware: NoneVisualized Upper Abdomen: Atherosclerosis in the abdominal aorta affectingthe ostia of the celiac, SMA and bilateral renal artery origins. Thevisualized portions of the upper abdomen are otherwise unremarkable withinthe limits of a low-dose, noncontrast CT.IMPRESSIONA right upper lobe 7 mm nodule is consistent with a benign calcifiedgranuloma. No further follow-up is required for this nodule.Tree-in-bud nodularity in the medial right lower lobe is nonspecific butcommonly seen with atypical infectious/inflammatory etiologies. Follow-upCT chest is recommended in 6-8 weeks after appropriate therapy to documentresolution.Mildly enlarged subcarinal lymph node. Attention on follow-up imaging.Preliminary Report Dictated by Resident: Jose Miguel Kurtz MD., have reviewed this study and agree with theabove report.[facility])2019-12-06 19:49:18HISTORY: Screening for osteoporosis. TECHNIQUE: Bone density estimation is done using DEXA scan, over the righthip and lumbar spines. FINDINGS: Details of the results are enclosed for your review. The s vishnuyis as follows. RIGHT HIP:BMD value is 0.752 gm/sq cm, with T-score of - 2.0. Estimated BMD in theneck is 0.710 g/sq cm with T score of - 2.4. LUMBAR SPINES:Average BMD value from L1 through L4 is 0.944 gm/sq cm, with T-score - 2.0. CONCLUSION: Moderate osteopenia in lumbar spines and in the rightfemur. ASSESSMENT: WHO-definitions: T-score normal: +/- 1 SD around the meanosteopenia: >1 to 2.4SD below the meanosteoporosis: >2.5 SD below the meanFracture risk doubles for each 1.5 SD below the mean. [facility], Radiant Results Inft User - 12/06/2019 2:50 PM CDTHISTORY: Screening for osteoporosis.TECHNIQUE: Bone density estimation is done using DEXA scan, over the righthip and lumbar spines.FINDINGS: Details of the results are enclosed for your review. The summaryis as follows.RIGHT HIP:BMD value is 0.752 gm/sq cm, with T-score of - 2.0. Estimated BMD in theneck is 0.710 g/sq cm with T score of - 2.4.LUMBAR SPINES:Average BMD value from L1 through L4 is 0.944 gm/sq cm, with T-score - 2.0.CONCLUSION: Moderate osteopenia in lumbar spines and in the right femur.ASSESSMENT: WHO-definitions: T-scorenormal: +/- 1 SD around the meanosteopenia: >1 to 2.4 SD below the meanosteoporosis: >2.5 SD below the meanFracture risk doubles for each 1.5 SD below the mean.[facility]
[2021-04-26 21:38] LABS: Absolute Lymphocytes (CBC) 1.6 K/uL (0.7-4.9); Hematocrit 33.9 % (36.0-45.0); Lymphocytes % 25.8 % (15.3-44.8); MPV 9.3 fL (7.6-11.3); RBC Red Blood Cell Count 3.82 M/uL (3.86-4.86)
--- NOTE | 2021-04-26 21:46 | RAD REPORT ---
EXAM DESCRIPTION: CT - Ct Stroke Brain Wo Cont - 04/26/2021 9:00 pm CLINICAL HISTORY: CONFUSED COMPARISON: No comparisons TECHNIQUE: Axial 5 millimeter thick images of the head were obtained without IV contrast. All CT scans are performed using dose optimization technique as appropriate and may include automated exposure control or mA/KV adjustment according to patient size. FINDINGS: No intracranial hemorrhage, mass, or cerebral edema. No acute cortical based infarction. N o extra-axial fluid collections. Soto matter-white matter differentiation is preserved.No significan t atrophy changes are present. Ventricles are normal. There is decreased attenuation in the left head of the caudate and basal ganglia region. This degree of decreased attenuation suggest remote ischemi c injury. No cortical edema or sulcal effacement. Arterial tree calcifications are present. Visualized portions of the mastoid air cells, paranasal sinuses, and orbits are unremarkable. Findings telephoned to Dr. Spaulding 2054 hours. Images for only initially available in the exception fo lder which precludes dictating a report at the time of the study. IMPRESSION: No CT evidence of acute intracranial process. Follow-up MR imaging could be performed there are ongoing concerns for acute CVA.
--- NOTE | 2021-04-26 21:46 | RAD REPORT ---
EXAM DESCRIPTION: RAD - Chest Single View - 04/26/2021 9:26 pm CLINICAL HISTORY: confusion, Stroke protocol chest film COMPARISON: December 2017 TECHNIQUE: AP portable chest image was obtained 04/26/2021 9:26 pm . FINDINGS: Lungs are clear. Interstitial pattern not clearly different from comparison. Nipple shadow s are present. Heart and vasculature are normal. No measurable pleural effusion and no pneumothorax. No acute bony abnormality seen. No acute aortic findings suspected. IMPRESSION: No acute cardiopulmonary process.
[2021-04-26 22:14] LABS: Protime INR 0.94
[2021-04-26 22:20] LABS: ALT/SGPT 24 U/L (12-78); AST/SGOT 25 U/L (15-37); Albumin 3.7 g/dL (3.4-5.0); BUN Blood Urea Nitrogen 13 mg/dL (7-18); Bicarbonate 25 mmol/L (21-32); Bilirubin Direct 0.1 mg/dL (0-0.2); Bilirubin Total 0.5 mg/dL (0.2-1.0); CKMB Creatine Kinase MB 3.5 ng/mL (1.0-3.6); Creatine Phosphokinase 167 U/L (26-192); Glucose Level 86 mg/dL (74-106); Magnesium 2.1 mg/dL (1.8-2.4); Potassium 3.7 mmol/L (3.5-5.1); Protein, Total 7.7 g/dL (6.4-8.2); Sodium Level 142 mmol/L (136-145)
[2021-04-26 22:21] LABS: Alkaline Phosphatase 92 U/L (45-117); Troponin (Emerg Dept Use Only) < 0.02 ng/mL (0.0-0.045)
[2021-04-26 22:38] LABS: SARS-COV-2 RT PCR NEGATIVE (NEGATIVE)
[2021-04-26 23:10] LABS: Barbiturates NEGATIVE (NEGATIVE); Benzodiazepines NEGATIVE (NEGATIVE); Cocaine NEGATIVE (NEGATIVE); METHAMPHETAM NEGATIVE (NEGATIVE); Methadone NEGATIVE (NEGATIVE); Opiates NEGATIVE (NEGATIVE); Phencyclidine NEGATIVE (NEGATIVE); THC Cannibis NEGATIVE (NEGATIVE)
[2021-04-26 23:23] LABS: Urine Blood Negative (Negative); Urine Glucose Negative (Negative); Urine Protein Negative (Negative); Urine Specific Gravity 1.025 (1.005-1.030)
--- NOTE | 2021-04-27 00:18 | EDPHYS ---
Physician Documentation [facility] Name: Kitty Nicholson Age: 70 yrs Sex: Female : 1950 Arrival Date: 04/26/2021 Time: 20:52 Bed 24 Private MD: ED Physician Adán Spaulding HPI: 04/26 21:00 This 70 yrs old Female presents to ER via Unassigned with complaints of Altered Mental mh7 Status. 21:00 The patient presents with confusion, disorientation, to time. Onset: The mh7 symptoms/episode began/occurred today, at an unknown time. Possible causes: drug use, marijuana, THC Gummies found on patient's bedside furniture. Associated signs and symptoms: Pertinent positives: confusion, Pertinent negatives: abdominal pain, agitation, ataxia, blurred vision, chest pain, combativeness, diaphoresis, diarrhea, dizziness, headache, lightheadedness, nausea, numbness, palpitations, seizure, shortness of breath, tingling, vertigo, vomiting, weakness. Current symptoms: In the emergency department the patient's symptoms have resolved, the patient is alert and fully oriented, has normal speech, has normal responsiveness, has no confusion. Patient's baseline: Neuro: alert and fully oriented, Motor: no deficits, Ambulation: walks without assistance, Speech: normal. According to EMS, patient's friend called due to patient being found lying in bed disoriented. They state that patient appeared to be confused. They noted that patient had THC Gummies on nightstand next to her bed. At time of evaluation in ED. Patient is awake alert and oriented and answering questions appropriately. She denies any complaints.. Historical: - Social history:: Smoking status: Patient denies any tobacco usage or history of. ROS: 21:00 Constitutional: Negative for fever, chills, and weight loss, Eyes: Negative for injury, mh7 pain, redness, and discharge, ENT: Negative for injury, pain, and discharge, Neck: Negative for injury, pain, and swelling, Cardiovascular: Negative for chest pain, palpitations, and edema, Respiratory: Negative for shortness of breath, cough, wheezing, and pleuritic chest pain, Abdomen/GI: Negative for abdominal pain, nausea, vomiting, diarrhea, and constipation, Back: Negative for injury and pain, : Negative for injury, bleeding, discharge, and swelling, MS/Extremity: Negative for injury and deformity, Skin: Negative for injury, rash, and discoloration, Psych: Negative for depression, anxiety, suicide ideation, homicidal ideation, and hallucinations, Allergy/Immunology: Negative for hives, rash, and allergies, Endocrine: Negative for neck swelling, polydipsia, polyuria, polyphagia, and marked weight changes, Hematologic/Lymphatic: Negative for swollen nodes, abnormal bleeding, and unusual bruising. 21:00 Neuro: Negative for dizziness, gait disturbance, headache, hearing loss, loss of consciousness, numbness, seizure activity, speech changes, syncope, near syncope, tingling, tinnitus, tremor, visual changes, weakness. Exam: 21:00 Constitutional: This is a well developed, well nourished patient who is awake, alert, mh7 and in no acute distress. Head/Face: Normocephalic, atraumatic. Eyes: Pupils equal round and reactive to light, extra-ocular motions intact. Lids and lashes normal. Conjunctiva and sclera are non-icteric and not injected. Cornea within normal limits. Periorbital areas with no swelling, redness, or edema. Neck: Trachea midline, no thyromegaly or masses palpated, and no cervical lymphadenopathy. Supple, full range of motion without nuchal rigidity, or vertebral point tenderness. No Meningismus. Chest/axilla: Normal chest wall appearance and motion. Nontender with no deformity. No lesions are appreciated. Cardiovascular: Regular rate and rhythm with a normal S1 and S2. No gallops, murmurs, or rubs. Normal PMI, no JVD. No pulse deficits. Respiratory: Lungs have equal breath sounds bilaterally, clear to auscultation and percussion. No rales, rhonchi or wheezes noted. No increased work of breathing, no retractions or nasal flaring. Abdomen/GI: Soft, non-tender, with normal bowel sounds. No distension or tympany. No guarding or rebound. No evidence of tenderness throughout. Back: No spinal tenderness. No costovertebral tenderness. Full range of motion. Skin: Warm, dry with normal turgor. Normal color with no rashes, no lesions, and no evidence of cellulitis. MS/ Extremity: Pulses equal, no cyanosis. Neurovascular intact. Full, normal range of motion. Psych: Awake, alert, with orientation to person, place and time. Behavior, mood, and affect are within normal limits. 21:00 Neuro: Orientation: is normal, Mentation: is normal, Memory: is normal, Cranial nerves: mh7 grossly normal, Cerebellar function: is grossly normal, Motor: is normal, Sensation: is normal, Gait: not tested. seizure activity, is not displayed by the patient, Abnormal movements: there are no abnormal movements. Vital Signs: 20:47 BP 174 / 76; Pulse 64; Resp 18; Temp 98.5; Pulse Ox 100% on R/A; Weight 49.9 kg (R); santos Height 5 ft. 4 in. (162.56 cm); 04/27 00:45 BP 172 / 74; Pulse 68; Resp 16; Pulse Ox 99% on R/A; Pain 0/10; santos 00:45 BP 165 / 72; Pulse 68; Resp 16; Temp 98.5; Pulse Ox 99% on R/A; Pain 0/10; santos 00:50 BP 174 / 76; Pulse 64; Resp 18; Temp 98.5; Pulse Ox 100% on R/A; santos 04/26 20:47 Body Mass Index 18.88 (49.90 kg, 162.56 cm) santos MDM: 04/26 22:30 Differential Diagnosis: CVA, electrolyte abnormality, alcohol intoxication, mh7 hypoglycemia, intracranial bleed, overdose, pneumonia, seizure, TIA, UTI, volume depletion. Data reviewed: vital signs, nurses notes, EMS record, lab test result(s), cardiac enzymes, CBC, drug level(s), acetaminophen, alcohol, salicylate, electrolytes, urinalysis, EKG, radiologic studies, CT scan, plain films. Data interpreted: Pulse oximetry: on room air is 100 %. Interpretation: normal. Counseling: I had a detailed discussion with the patient and/or guardian regarding: the historical points, exam findings, and any diagnostic results supporting the discharge/admit diagnosis, the presence of at least one elevated blood pressure reading (>120/80) during this emergency department visit, lab results, radiology results. Response to treatment: the patient's symptoms have resolved after treatment, the patient's blood pressure is in an acceptable range, mental status has returned to baseline, the patient no longer shows bradycardia, the patient is not short of breath, the patient is not tachycardic, the patient's pain is gone, the patient's temperature has normalized, the patient is now symptom free, patient is well hydrated. Physician consultation: Tunde Castillo MD was contacted at 21:10, regarding patient's condition, Discussed with Dr. Castillo, not a TPA candidate as symptoms not clearly stroke related. Timing of events also uncertain.. 04/27 00:16 ED course: Well-appearing, no acute distress, vital signs stable, no focal neurological [facility] deficits. Awake, alert, and oriented x4 and answering all questions appropriately. Discussed all test results and findings with the patient. She request to be discharged in ED at this time.. 00:18 Patient medically screened. [facility] 04/26 20:57 Order name: Basic Metabolic Panel [facility] 04/26 20:57 Order name: CBC with Diff; Complete Time: 22:07 [facility] 04/26 20:57 Order name: CPK; Complete Time: 23:10 [facility] 04/26 20:57 Order name: Ckmb; Complete Time: 23:10 [facility] 04/26 20:57 Order name: Hepatic Function; Complete Time: 23:10 [facility] 04/26 20:57 Order name: Magnesium; Complete Time: 23:10 [facility] 04/26 20:57 Order name: Protime (+inr); Complete Time: 22:16 [facility] 04/26 20:57 Order name: Ptt, Activated; Complete Time: 22:16 [facility] 04/26 20:57 Order name: Troponin (emerg Dept Use Only); Complete Time: 23:10 [facility] 04/26 20:57 Order name: UDS; Complete Time: 23:50 [facility] 04/26 20:57 Order name: ETOH Level; Complete Time: 22:07 [facility] 04/26 20:57 Order name: Basic Metabolic Panel; Complete Time: 23:10 [facility] 04/26 21:08 Order name: COVID-19/FLU A+B (Document "Date of Onset" if Symptomatic); Complete Time: [facility] 23:10 04/26 23:22 Order name: Urine Dipstick-Ancillary; Complete Time: 23:50 [facility] 04/26 20:57 Order name: CT Stroke Brain w/o Contrast; Complete Time: 22:07 [facility] 04/26 20:57 Order name: Stroke CXR 1 View; Complete Time: 22:07 [facility] 04/26 20:57 Order name: EKG; Complete Time: 20:58 [facility] 04/26 20:57 Order name: Accucheck; Complete Time: 23:44 [facility] 04/26 20:57 Order name: Cardiac monitoring; Complete Time: 22:59 [facility] 04/26 20:57 Order name: EKG - Nurse/Tech; Complete Time: 22:59 [facility] 04/26 20:57 Order name: IV Saline Lock; Complete Time: 22:59 [facility] 04/26 20:57 Order name: Labs collected and sent; Complete Time: 22:59 [facility] 04/26 20:57 Order name: NPO; Complete Time: 23:44 [facility] 04/26 20:57 Order name: O2 Per Protocol; Complete Time: 22:59 [facility] 04/26 20:57 Order name: O2 Sat Monitoring; Complete Time: 22:59 [facility] 04/26 20:57 Order name: Stroke Swallow Screen [facility] 04/26 20:57 Order name: Urine Dipstick-Ancillary (obtain specimen); Complete Time: 23:44 [facility] 04/27 00:03 Order name: Glucose, Ancillary Testing; Complete Time: 00:08 [facility] 04/27 00:05 Order name: Glucose, Ancillary Testing [facility] Administered Medications: No medications were administered Disposition Summary: 04/27/21 00:18 Discharge Ordered Location: Home [facility] Problem: new [facility] Symptoms: are resolved [facility] Condition: Stable [facility] Diagnosis - Altered mental status, unspecified - Resolved [facility] Followup: [facility] - With: Private Physician - When: 1 - 2 days - Reason: Worsening of condition, Recheck today's complaints, Continuance of care, Re-evaluation by your physician Followup: [facility] - With: Tunde Castillo MD - When: 1 - 2 days - Reason: Worsening of condition, Recheck today's complaints Discharge Instructions: - Discharge Summary Sheet [facility] - Confusion [facility] Forms: - Medication Reconciliation Form [facility] - Thank You Letter [facility] - Antibiotic Education [facility] - Prescription Opioid Use [facility] Signatures: Dispatcher [employer] Adán Muñoz MD MD [facility] Renée Gamble RN RN santos Corrections: (The following items were deleted from the chart) 00:16 00:09 Neuro: Orientation: is normal, Mentation: is normal, Memory: is normal, Cranial mh7 nerves: grossly normal, Cerebellar function: is grossly normal, Motor: is normal, Sensation: is normal, Gait: not tested. seizure activity, is not displayed by the patient, Abnormal movements: there are no abnormal movements, [facility] 00:49 00:49 PMHx: LYMPHOMA; santos santos 00:49 00:49 PMHx: cervical cancer; santos santos 00:49 00:49 PMHx: Bladder cancer; santos santos 00:49 00:49 PMHx: Hypertension; santos santos
--- NOTE | 2021-04-27 02:04 | ER ---
Nurse's Notes [facility] Name: Kitty Nicholson Age: 70 yrs Sex: Female : 1950 Arrival Date: 04/26/2021 Time: 20:52 Bed 24 Private MD: Diagnosis: Altered mental status, unspecified-Resolved Presentation: 04/26 20:47 Chief complaint: Patient states: "I really don't know". Coronavirus screen: Vaccine santos status: Patient reports receiving the 2nd dose of the covid vaccine. Ebola Screen: Patient negative for fever greater than or equal to 101.5 degrees Fahrenheit, and additional compatible Ebola Virus Disease symptoms Patient denies exposure to infectious person. Patient denies travel to an Ebola-affected area in the 21 days before illness onset. Initial Sepsis Screen: Does the patient meet any 2 criteria? No. Patient's initial sepsis screen is negative. Risk Assessment: Do you want to hurt yourself or someone else? Patient reports no desire to harm self or others. Onset of symptoms was April 26, 2021. 20:47 Method Of Arrival: EMS santos 20:47 Acuity: JEAN CLAUDE 2 santos Triage Assessment: 04/27 00:49 General: Appears in no apparent distress. well groomed. Pain: Denies pain. Neuro: No santos deficits noted. Historical: - Social history:: Smoking status: Patient denies any tobacco usage or history of. Assessment: 00:53 General: I recv'd the pt via EMS \\T\\ 2046. Code Stroke was called \\T\\ 2122. The pt was santos AAOx3 on arrival and per EMS, the pt had "stroke like" symptoms at home "with her girlfriends". The pt had THC gummies at her bedside, at home, they said, but denied using them. The pt reported that she wished to be dc'd to "go to the concert with (her) girlfriends". Urine was sent \\T\\ 2233 and she ambulated with a steady gait. The pt's VS remained stable, during her stay. She was dc'd home \\T\\ 0045, with her "girlfriends". NAD. . Vital Signs: 04/26 20:47 BP 174 / 76; Pulse 64; Resp 18; Temp 98.5; Pulse Ox 100% on R/A; Weight 49.9 kg (R); santos Height 5 ft. 4 in. (162.56 cm); 04/27 00:45 BP 172 / 74; Pulse 68; Resp 16; Pulse Ox 99% on R/A; Pain 0/10; santos 00:45 BP 165 / 72; Pulse 68; Resp 16; Temp 98.5; Pulse Ox 99% on R/A; Pain 0/10; santos 00:50 BP 174 / 76; Pulse 64; Resp 18; Temp 98.5; Pulse Ox 100% on R/A; santos 04/26 20:47 Body Mass Index 18.88 (49.90 kg, 162.56 cm) santos ED Course: 04/26 20:52 Patient arrived in ED. 20:54 Adán Spaulding MD is Attending Physician. 7 21:00 CT Stroke Brain w/o Contrast In Process Unspecified. EDMS 21:26 Stroke CXR 1 View In Process Unspecified. EDCO 21:38 Renée Gamble, RN is Primary Nurse. santos 23:44 Basic Metabolic Panel Sent. santos 04/27 00:17 Tunde Castillo MD is Referral Physician. 7 00:48 Triage completed. santos 00:53 Inserted saline lock: 18 gauge in right antecubital area, using aseptic technique. santos 00:53 Patient has correct armband on for positive identification. Placed in gown. Bed in low santos position. Call light in reach. Administered Medications: No medications were administered Outcome: 00:18 Discharge ordered by . [facility] 02:04 Patient left the ED. santos Signatures: Dispatcher [employer] EDCO Adán Spaulding MD MD Migdalia Judd Renée Gamble, RN RN santos Corrections: (The following items were deleted from the chart) 00:49 00:49 PMHx: LYMPHOMA; santos santos 00:49 00:49 PMHx: cervical cancer; santos santos 00:49 00:49 PMHx: Bladder cancer; santos santos 00:49 00:49 PMHx: Hypertension; santos santos
[2021-04-27 02:11] VITALS: TEMP 98.5
[2021-04-27 02:13] VITALS: BP 174/76; O2SAT 100
== END 2021-04-27 02:04 | disposition home or self-care (01) ==
LOC: ER 20:51
DX: R41.82 Altered mental status, unspecified (principal)
CPT/HCPCS: 93005; 85025; 80048; 36415; 80320; 83735; 82550; 85610; 82947; 80076; 85730; 81003; 84484; 82553; 0240U; 80307; 70450; 71045; 99284

== ENCOUNTER 2021-06-03 15:57 | Observation (INO) | payer OTHER ==
--- OUTSIDE RECORDS SUMMARY | 2021-06-03 16:00 | XMS REPORT | Continuity of Care Document ---
:1950 Author Organization [facility] t Address [address] [place] [address] Care Team Providers Name Role Phone ALF Primary Care Physician Unavailable CARLOS Attending Clinician Unavailable CLIFFORD TRIANA Attending Clinician Unavailable Epifanio JACKSON Attending Clinician Unavailable Clifford Triana MD Attending Clinician Doctor Unassigned, Name Attending Clinician Unavailable Provider, Urgent Care Attending Clinician Unavailable MARIS Attending Clinician Unavailable CÉSAR Attending Clinician Unavailable Payers Payer Name Policy Type Policy Number Effective Date Expiration Date S ource [facility] [id number] 2015 [facility] 00:00[facility] [id number] 2020 ADVANTAGE 00:00:00 [facility] [id number] 2020 [facility] 00:00:00 PPO Problems Condition Condition Condition Status Onset Resolution Last Treating Co mments Source Name Details Category Date Date Treatment Clinician Date Paulding Paulding Disease Active [facility] Gulshan Gaffney 2-28 [place] Essential Essential Disease Active Uni vers hypertensi hypertensi 08-30 it y of on on 00:00: [place] [facility] Bladder Bladder Disease Active [facility] cancer cancer 08-30 ity of 00:00: [place] [facility] Psoriasis Psoriasis Disease Active Uni vers 08-30 ity of 00:00: [place] [facility] Psoriatic Psoriatic Disease Active Uni vers arthritis arthritis 08-30 ity of 00:00: [place] [facility] Insomnia Insomnia Disease Active Unive rs 08-30 ity of 00:00: [place] 00 Medical Branch Allergies, Adverse Reactions, Alerts Allergy Allergy Status Severity Reaction(s) Onset Inactive Treating Comm ents Source Name Type Date Date Clinician Radha Propensi Active Unknown - Uni vers in ty to See comments 06-18 ity of adverse 00:00: [place] reaction 00 Medical s Branch PENICILL DRUG Active Unknown-Cmnt Un ke IN INGREDI 06-18 ity of 00:00: [place] 00 Medical Branch Social History Social Habit Start Date Stop Date Quantity Comments Source Exposure to Not sure [facility] SARS-CoV-2 (event) Medica l Branch History [facility] [place] Alcohol Frequency Medical Branch History [facility] University o [facility] Alcohol Std Drinks Medica l Branch History [facility] [place] Alcohol Binge Medical Bra [facility] Alcohol intake 2019-11-30 2019-11-30 .14 /d [facility] 00:00:00 00:00:00 Medical Branch Alcohol Comment 2015-08-31 2015-08-[address] [facility] 00:00:00 00:00:00 Medical Branch Tobacco use and 2015-08-31 2015-08-[address] [facility] exposure 00:00:00 00:00:00 Medical Branch Sex Assigned At [address] 1950 [facility] 00:00:00 00:00:00 Medical Branch Smoking Status Start Date Stop Date Source Former smoker 2019-11-30 00:00:00 2019-11-30 00:00:00 [facility] Medical Branch Medications Ordered Filled Start Stop Current Ordering Indication Dosage Frequency Signature Comments Components Source Medication Medication Date Date Medication? Clinician (SIG) Name Name metoprolol Yes [id number] TAKE 1 U nivers tartrate 50 1-28 TABLET BY ity of mg tablet 00:00: MOUTH [place] 00 TWICE Medical DAILY Branch diphenoxyla Yes [id number] 1{tbl} Take 1 Univers te-atropine 1-28 tablet by ity of 2.5-0.025 00:00: mouth [place] mg tablet 00 every 6 Medical (six) Branch hours as needed (diarrhea) . losartan 50 Yes [id number] 50mg Take 1 Univers mg tablet 1-28 tablet by ity o f 00:00: mouth [place] 00 daily. Medical Branch traMADoL 50 2022-0 Yes [id number] 50mg Take 1 Univ ers mg tablet 1-28 tablet by ity o f 00:00: mouth [place] 00 every 6 Medical (six) Branch hours as needed (pain). Indication s: chronic pain metoprolol 2021-0 Yes [id number] TAKE 1 U nivers tartrate 50 1-28 TABLET BY ity of mg tablet 00:00: MOUTH [place] 00 TWICE Medical DAILY Branch diphenoxyla 2021-0 Yes [id number] 1{tbl} Take 1 Univers te-atropine 1-28 tablet by ity of 2.5-0.025 00:00: mouth [place] mg tablet 00 every 6 Medical (six) Branch hours as needed (diarrhea) . losartan 50 0 Yes [id number] 50mg Take 1 Univers mg tablet 1-28 tablet by ity o f 00:00: mouth [place] 00 daily. Medical Branch traMADoL 50 Yes [id number] 50mg Take 1 Univ ers mg tablet 1-28 tablet by ity o f 00:00: mouth [place] 00 every 6 Medical (six) Branch hours as needed (pain). Indication s: chronic pain metoprolol 2021- Yes [id number] TAKE 1 U nivers tartrate 50 1-28 TABLET BY ity of mg tablet 00:00: MOUTH [place] 00 TWICE Medical DAILY Branch diphenoxyla 2021-0 Yes [id number] 1{tbl} Take 1 Univers te-atropine 1-28 tablet by ity of 2.5-0.025 00:00: mouth [place] mg tablet 00 every 6 Medical (six) Branch hours as needed (diarrhea) . losartan 50 2021-0 Yes [id number] 50mg Take 1 Univers mg tablet 1-28 tablet by ity o f 00:00: mouth [place] 00 daily. Medical Branch traMADoL 50 0 Yes [id number] 50mg Take 1 Univ ers mg tablet 1-28 tablet by ity o f 00:00: mouth [place] 00 every 6 Medical (six) Branch hours as needed (pain). Indication s: chronic pain metoprolol 2021-0 Yes [id number] TAKE 1 U nivers tartrate 50 1-28 TABLET BY ity of mg tablet 00:00: MOUTH [place] 00 TWICE Medical DAILY Branch diphenoxyla 2021-0 Yes [id number] 1{tbl} Take 1 Univers te-atropine 1-28 tablet by ity of 2.5-0.025 00:00: mouth [place] mg tablet 00 every 6 Medical (six) Branch hours as needed (diarrhea) . losartan 50 Yes [id number] 50mg Take 1 Univers mg tablet -28 tablet by ity o f 00:00: mouth [place] 00 daily. Medical Branch traMADoL 50 Yes [id number] 50mg Take 1 Univ ers mg tablet -28 tablet by ity o f 00:00: mouth [place] 00 every 6 Medical (six) Branch hours as needed (pain). Indication s: chronic pain diphenoxyla 2020-04- No [id number] 1{tbl} Take 1 Univers te-atropine 2-28 - tablet by it y of 2.5-0.025 00:00: 00:00 mouth [place] mg tablet 00 :00 every 6 Medical (six) Branch hours as needed (diarrhea) . fluconazole 2020- No Yeast 150mg Take 1 U nivers (DIFLUCAN) 5 05-08 infection tablet by ity of 150 mg 00:00: 04:59 mouth [place] tablet 00 :00 now for 1 Medical dose. Branch sulfamethox Yes Cystitis 1{tbl} Take 1 Univers azole-trime 5-06 tablet by ity of thoprim 00:00: mouth 2 [place] (BACTRIM 00 (two) Medical DS) 800-160 times Branch mg per daily. tablet sulfamethox 2021- No [id number] 1{tbl} Take 1 Univers azole-trime 5-06 - tablet by it y of thoprim 00:00: 00:00 mouth 2 [place] (BACTRIM 00 :00 (two) Medical DS) 800-160 times Branch mg per daily. tablet fluconazole 2020- No Yeast 150mg Take 1 U nivers (DIFLUCAN) 5 05-07 infection tablet by ity of 150 [...] as Medical needed for Branch Insomnia. cefUROXime 2021- No [id number] 250mg Take 1 Univers 250 mg 5-04 - tablet by ity of tablet 00:00: 00:00 mouth 2 [place] 00 :00 (two) Medical times Branch daily. traMADoL 50 2021- No [id number] 50mg Take 1 Uni vers mg tablet 08-28 tablet by ity of 00:00: 00:00 mouth [place] 00 :00 every 6 Medical (six) Branch hours as needed (pain). Indication s: chronic pain metoprolol 2021- No [id number] TAKE 1 Univers tartrate 50 08-28 TABLET BY it y of mg tablet 00:00: 00:00 MOUTH [place] 00 :00 TWICE Medical DAILY Branch zolpidem 10 2021- No [id number] 10mg Take 1 Univers mg tablet 08-28 tablet by ity of 00:00: 00:00 mouth at [place] 00 :00 bedtime as Medical needed for Branch Insomnia. HUMIRA PEN 2015-0 Yes Univers 40 mg/0.8 4-16 ity of mL 00:00: [place] injection 00 Medical [facility] Yes Univers 40 mg/0.8 4-16 ity of mL 00:00: [place] injection 00 Medical Branch [facility] 2016-0 Yes Univers 40 mg/0.8 4-16 ity of mL 00:00: [place] injection 00 Medical Branch [facility] 2016-0 Yes Univers 40 mg/0.8 4-16 ity of mL 00:00: [place] injection 00 Medical Branch [facility] 2016-0 Yes Univers 40 mg/0.8 4-16 ity of mL 00:00: [place] injection [facility] 2016-0 Yes Univers 40 mg/0.8 4-16 ity of mL 00:00: [place] injection 00 [facility] Branch Immunizations Ordered Filled Immunization Date Status Comments [facility] Immunization Name Name Influenza Virus 2021-03-12 Completed Universit y of Vaccine - Whole 00:00:00 [facility] SARS-COV-2 COVID-19 2021-03-12 Completed Unive rsity of MODERNA VACCINE 00:00:00 [facility] Influenza Virus 2021-03-12 Completed Universit y of Vaccine - Whole 00:00:00 [facility] SARS-COV-2 COVID-19 2021-03-12 Completed Unive rsity of MODERNA VACCINE 00:00:00 [facility] Influenza Virus 2021-03-12 Completed Universit y of Vaccine - Whole 00:00:00 [place] Med ical Branch SARS-COV-2 COVID-19 2021-03-12 Completed Unive rsity of MODERNA VACCINE 00:00:00 [facility] Branch Influenza Virus 2021-03-12 Completed Universit y of Vaccine - Whole 00:00:00 [facility] Branch SARS-COV-2 COVID-19 2021-03-12 Completed Unive rsity of MODERNA VACCINE 00:00:00 [facility] Branch SARS-COV-2 COVID-19 2020-05-29 Completed Unive rsity of MODERNA VACCINE 00:00:00 [facility] Branch SARS-COV-2 COVID-19 2020-05-29 Completed Unive rsity of MODERNA VACCINE 00:00:00 [facility] Branch SARS-COV-2 COVID-19 2020-05-29 Completed Unive rsity of MODERNA VACCINE 00:00:00 [facility] Branch SARS-COV-2 COVID-19 2020-05-29 Completed Unive rsity of MODERNA VACCINE 00:00:00 [facility] Branch SARS-COV-2 COVID-19 2020-05-29 Completed Unive rsity of MODERNA VACCINE 00:00:00 [facility] Branch SARS-COV-2 COVID-19 2020-05-29 Completed Unive rsity of MODERNA VACCINE 00:00:00 [facility] Branch SARS-COV-2 COVID-19 2020-05-01 Completed Unive rsity of MODERNA VACCINE 00:00:00 [facility] Branch SARS-COV-2 COVID-19 2020-05-01 Completed Unive rsity of MODERNA VACCINE 00:00:00 [facility] Branch SARS-COV-2 COVID-19 2020-05-01 Completed Unive rsity of MODERNA VACCINE 00:00:00 [facility] Branch SARS-COV-2 COVID-19 2020-05-01 Completed Unive rsity of MODERNA VACCINE 00:00:00 [facility] Branch SARS-COV-2 COVID-19 2020-05-01 Completed Unive rsity of MODERNA VACCINE 00:00:00 [facility] Branch SARS-COV-2 COVID-19 2020-05-01 Completed Unive rsity of MODERNA VACCINE 00:00:00 [facility] Zoster Vaccine 2020-04-15 Completed University of Recombinant 00:00:00 [facility] Zoster Vaccine 2020-04-15 Completed University of Recombinant 00:00:00 [facility] Zoster Vaccine 2020-04-15 Completed University of Recombinant 00:00:00 [facility] Zoster Vaccine 2020-04-15 Completed University of Recombinant 00:00:00 [facility] PPD (TB) 2019-11-30 Completed University of 00:00:00 [facility] PPD (TB) 2019-11-30 Completed University of 00:00:00 [facility] PPD (TB) 2019-11-30 Completed University of 00:00:00 [facility] PPD (TB) 2019-11-30 Completed University of 00:00:00 [facility] PPD (TB) 2019-11-30 Completed University of 00:00:00 [facility] PPD (TB) 2019-11-30 Completed University of 00:00:00 [facility] Influenza High Dose 2018-03-09 Completed Unive rsity of 00:00:00 [facility] Influenza High Dose 2018-03-09 Completed Unive rsity of 00:00:00 [facility] Influenza High Dose 2018-03-09 Completed Unive rsity of 00:00:00 [facility] Influenza High Dose 2018-03-09 Completed Unive rsity of 00:00:00 [facility] Influenza High Dose 2018-03-09 Completed Unive rsity of 00:00:00 [facility] Influenza High Dose 2018-03-09 Completed Unive rsity of 00:00:00 [facility] PPD (TB) 2016-08-26 Completed University of 00:00:00 [facility] PPD (TB) 2016-08-26 Completed University of 00:00:00 [facility] PPD (TB) 2016-08-26 Completed University of 00:00:00 [facility] PPD (TB) 2016-08-26 Completed University of 00:00:00 [facility] PPD (TB) 2016-08-26 Completed University of 00:00:00 [facility] PPD (TB) 2016-08-26 Completed University of 00:00:00 [facility] Vital Signs Vital Name Observation Time Observation Value Comments Source Systolic blood 2021-05-24 20:33:00 190 mm[Hg] right arm [facility] [place] [facility] Diastolic blood 2021-05-24 20:33:00 83 mm[Hg] right arm Unive [facility] [place] [facility] pressure [facility] Branch Heart rate 2021-05-24 20:31:00 62 /min [facility] Body height 2021-05-24 20:31:00 167.6 cm [facility] Body weight 2021-05-24 20:31:00 49.896 kg [facility] BMI 2021-05-24 20:31:00 17.75 kg/m2 [facility] Procedures This patient has no known procedures. Plan of Care Planned Activity Planned Date Details Comments Source Future Scheduled 2029-12-05 Screening for [facility] Test 00:00:00 osteoporosis Medical Branch (procedure) [code = 481350928] Future Scheduled 2029-12-05 Screening for [facility] Test 00:00:00 osteoporosis Medical Branch (procedure) [code = 358161747] Future Scheduled 2021-01-19 Screening for [facility] Test 00:00:00 malignant neoplasm of Medica l Branch lung (procedure) [code = 151214290] Future Scheduled 2021-01-19 Screening for [facility] Test 00:00:00 malignant neoplasm of Medica l Branch lung (procedure) [code = 262252228] Future Scheduled 2020 INFLUENZA VACCINE [facility] [place] Test 00:00:00 (Season Ended) [code = Medic al Branch INFLUENZA VACCINE (Season Ended)] Future Scheduled 2020 INFLUENZA VACCINE [facility] [place] Test 00:00:00 (Season Ended) [code = Medic al Branch INFLUENZA VACCINE (Season Ended)] Future Scheduled 2014 Medicare Annual Universi ty [facility] Test 00:00:00 Wellness Visit Medical Branc h (procedure) [code = 668556303970098] Future Scheduled 2014 PNEUMOCOCCAL VACCINES [facility] [place] Test 00:00:00 65+ (1 of 1 - PPSV23) Medica l Branch [code = PNEUMOCOCCAL VACCINES 65+ (1 of 1 - PPSV23)] Future Scheduled 2014 Medicare Annual Universi ty [facility] Test 00:00:00 Wellness Visit Medical Branc h (procedure) [code = 854174029456662] Future Scheduled 2014 PNEUMOCOCCAL VACCINES [facility] [place] Test 00:00:00 65+ (1 of 1 - PPSV23) Medica l Branch [code = PNEUMOCOCCAL VACCINES 65+ (1 of 1 - PPSV23)] Future Scheduled 1999-12-27 Screening for occult [facility] [place] Test 00:00:00 blood in feces Medical Bran h (procedure) [code = 412676174] Future Scheduled 1999-12-27 Stool DNA-based [facility] Test 00:00:00 colorectal cancer Medical Br anch screening (procedure) [code = 377481337759338] Future Scheduled 1999-12-27 [facility]00 sigmoidoscopy Medical Branch (procedure) [code = 66457439] Future Scheduled 1999-12-27 Screening for [facility] Test 00:00:00 malignant neoplasm of Medica l Branch colon (procedure) [code = 867810853] Future Scheduled 1999-12-27 Screening for [facility] Test 00:00:00 malignant neoplasm of Medica l Branch colon (procedure) [code = 022551149] Future Scheduled 1999-12-27 Zoster Recombinant Unive [facility] [place] [facility] Test 00:00:00 Vaccine (SHINGRIX) (1 Medica l Branch of 2) [code = Zoster Recombinant Vaccine (SHINGRIX) (1 of 2)] Future Scheduled 1999-12-27 Screening for occult [facility] [place] Test 00:00:00 blood in feces Medical Bran h (procedure) [code = 190797135] Future Scheduled 1999-12-27 Stool DNA-based [facility] Test 00:00:00 colorectal cancer Medical Br anch screening (procedure) [code = 875183124214330] Future Scheduled 1999-12-27 Flexible [facility]:00 sigmoidoscopy Medical Branch (procedure) [code = 77755340] Future Scheduled 1999-12-27 Screening for [facility] Test 00:00:00 malignant neoplasm of Medica l Branch colon (procedure) [code = 871678483] Future Scheduled 1999-12-27 Screening for [facility] Test 00:00:00 malignant neoplasm of Medica l Branch colon (procedure) [code = 597233089] Future Scheduled 1999-12-27 Zoster [facility] 00:[facility]:00 Vaccine (SHINGRIX) (1 Medica l Branch of 2) [code = Zoster Recombinant Vaccine (SHINGRIX) (1 of 2)] Future Scheduled 1989 Screening for University [facility] Test 00:00:00 malignant neoplasm of Medica l Branch breast (procedure) [code = 267061818] Future Scheduled 1989 Screening for University [facility] Test 00:00:00 malignant neoplasm of Medica l Branch breast (procedure) [code = 343490162] Future Scheduled 1968 DTaP,Tdap,and Td [facility] [place] Test 00:00:00 Vaccines (1 - Tdap) Medical Branch [code = DTaP,Tdap,and Td Vaccines (1 - Tdap)] Future Scheduled 1968 DTaP,Tdap,and Td [facility] [place] Test 00:00:00 Vaccines (1 - Tdap) Medical Branch [code = DTaP,Tdap,and Td Vaccines (1 - Tdap)] Future Scheduled 1967-12-27 Hepatitis C screening [facility] [place] Test 00:00:00 (procedure) [code = Medical Branch 405502307] Future Scheduled 1967-12-27 Hepatitis C screening [facility] [place] Test 00:00:00 (procedure) [code = Medical Branch 477068292] Future Scheduled 1961 Depression screening [facility] [place] Test 00:00:00 (procedure) [code = Medical Branch 705021129] Future Scheduled 1961 Depression screening [facility] [place] Test 00:00:00 (procedure) [code = Medical Branch 287280586] Encounters Start End Encounter Admission Attending Care Care Encounter Source Date/Time Date/Time Type Type Clinicians Facility Department ID 2021-05-30 Outpatient MDA MDA [id number] 17:39:32 Anderso n 2021-05-30 Outpatient MDA MDA [id number] 17:39:32 Anderso n 2021-03-01 Outpatient CARLOS [facility] [id number] [place] 15:44:15 [facility] 2021-06-24 2021-06-24 [facility] [id number] Univers 14:00:00 14:00:00 ZACKERY [id number] ity [facility] 2021-06-24 2021-06-24 Outpatient R [facility] [id number] Univers 14:00:00 [facility]:00:[facility] 2021-06-13 Outpatient R MANUEL [facility] [id number] Univers 14:30:00 14:30:00 SENDIL [id number] [facility] 2021-06-13 2021-06-13 Outpatient R MANUEL [facility] [id number] Univers 14:30:00 14:30:00 SENDIL [facility] 2021-05-30 2021-05-30 Telephone [facility] [id number] Univers 00:00:00 00:00:00 Zackery HEALTH [id number] it y of [place] [id number] Abdirahman as [place] [phone] [address] MEDICAL OFFICE [facility] 2021-05-30 2021-05-30 Telephone [facility] [id number] Univers 00:00:00 00:00:00 Zackery HEALTH [id number] it y of [place] [id number] Abdirahman as [place] [phone] [address] MEDICAL OFFICE [facility] 2021-05-28 2021-05-28 [facility] [id number] Univers 00:00:00 00:00:00 Zackery HEALTH [id number] it y of [place] [id number] Abdirahman as [place] [phone] [address] MEDICAL OFFICE [facility] 2021-05-24 2021-05-24 Office [facility] [id number] Univers 14:30:00 15:00:00 Visit Zackery HEALTH [id number] it y of [place] [id number] Abdirahman as [place] [phone] [address] MEDICAL OFFICE [facility] 2019-09-21 2019-09-21 Refill [facility] [id number] 00:00:00 00:00:00 [facility] [id number] [place] [id number] Professio [phone] nal [facility] [address] 2019-09-21 2019-09-21 Refmallory Triana, [facility] [id number] 00:00:00 00:00:00 [facility] [id number] [place] [id number] Professio [phone] nal [address] 2019-09-08 2019-09-08 Urgent Provider, [facility] [id number] 09:18:26 10:15:27 Care [facility] [id number] Care [place] [id number] Professio [phone] [place] [address] [address] 2019-08-15 2019-08-15 Patient Doctor LIBRADO [id number] 00:00:00 00:00:00 Secure Msg Unassigned, [place] [id number] [place] [facility] [id number] [id number] [id number] 2019-06-23 2019-06-23 Emergency MARIS, [facility] 064 [id number] [place] 00:00:00 00:00:00 TALON Todd[address] [facility] 2019-06-20 2019-06-20 Emergency CÉSAR, [facility] 064 [id number] [place] 00:00:00 00:00:00 SEE 08Jasper [facility] Results This patient has no known results.
--- NOTE | 2021-06-03 16:26 | RAD REPORT ---
EXAM DESCRIPTION: CT - Ct Stroke Brain Wo Cont - 06/03/2021 4:19 pm CLINICAL HISTORY: Confusion/alteration of awareness COMPARISON: 2020 TECHNIQUE: Computed axial tomography of the head was obtained. All CT scans are performed using dose optimization technique as appropriate and may include automated exposure control or mA/KV adjustment according to patient size. FINDINGS: An intracranial bleed is not seen . The ventricles are normal in caliber. No extra-axial fluid collection is noted. Old lacunar infarct left basal ganglia Fluid within the sinuses/ mastoids is not seen. IMPRESSION: No acute intracranial abnormality is seen. If patient's symptoms persist MRI of the bra in would be recommended. Brody Kolb in the emergency room notified 4:22 p.m. June 03, 2021
[2021-06-03 16:29] LABS: Absolute Lymphocytes (CBC) 1.7 K/uL (0.7-4.9); Hematocrit 36.8 % (36.0-45.0); Lymphocytes % 23.1 % (15.3-44.8); MPV 9.2 fL (7.6-11.3); RBC Red Blood Cell Count 4.13 M/uL (3.86-4.86)
[2021-06-03 16:38] LABS: Protime INR 1.01
[2021-06-03 16:49] LABS: Albumin 3.4 g/dL (3.4-5.0); Bilirubin Direct 0.1 mg/dL (0-0.2); Bilirubin Total 0.5 mg/dL (0.2-1.0); Potassium 3.5 mmol/L (3.5-5.1); Protein, Total 6.7 g/dL (6.4-8.2); Troponin High Sensitivity 5.5 pg/mL (<58.9)
--- NOTE | 2021-06-03 18:26 | RAD REPORT ---
EXAM DESCRIPTION: MRI - Brain Wo Cont - 06/03/2021 6:05 pm CLINICAL HISTORY: Double vision COMPARISON: Head CT June 03, 2021 TECHNIQUE: Axial, sagittal, and coronal magnetic resonance images of the brain were obtained. FINDINGS: An 11 millimeter area of abnormal signal left basal ganglia compatible with an old lacunar infarction Diffusion-weighted/ADC mapping does not reveal evidence of acute infarction. The ventricles are normal caliber. An extra-axial fluid collection is not noted. Fluid within the sinuses/mastoids is not seen. Mild chronic left maxillary sinusitis IMPRESSION: No acute intracranial abnormality noted
--- NOTE | 2021-06-03 18:29 | RAD REPORT ---
EXAM DESCRIPTION: MRI - MRA Head Wo Cont - 06/03/2021 6:05 pm CLINICAL HISTORY: Double vision COMPARISON: None. TECHNIQUE: Magnetic resonance angiogram was performed. 3D MIPS reconstruction performed FINDINGS: Mild short-segment areas of narrowing involve portions of middle and posterior cerebral ar teries. These are probably chronic. The anterior cerebral, middle cerebral, posterior cerebral, distal internal carotid and basilar arter ies do not demonstrate a significant stenosis. origin right posterior cerebral artery An aneurysm is not displayed. IMPRESSION: No acute abnormality is displayed
[2021-06-03] MEDS ORDERED: ASPIRIN 81 MG CHEWABLE TABLET ONE (18:37)
[2021-06-03] MEDS ORDERED: FOLIC ACID 1 MG TABLET ONE (18:38)
--- NOTE | 2021-06-03 18:49 | RAD REPORT ---
EXAM DESCRIPTION: Kayla Single View06/03/2021 6:19 pm CLINICAL HISTORY: Double vision/alteration consciousness COMPARISON: 2011 and FINDINGS: The lungs appear clear of acute infiltrate. The heart is normal size IMPRESSION: No acute abnormalities displayed
--- NOTE | 2021-06-03 18:52 | RAD REPORT ---
EXAM DESCRIPTION: USCarotid Artery Bilateral06/03/2021 6:40 pm CLINICAL HISTORY: Double vision COMPARISON: None FINDINGS: The velocity of the right internal carotid artery equals 95 cm/sec. The right ICA/CCA rat io 1.3 The velocity of the left internal carotid artery equals 97cm/sec. The left ICA/CCA ratio 1.1 Mild plaque is present within the carotid arteries. The vertebral arteries demonstrate antegrade flow IMPRESSION: Mild plaque within the carotid arteries without evidence of a hemodynamically significan t stenosis NASCET criteria used. Mild 0-49% stenosis Moderate 50-69% stenosis Severe 70-99% stenosis
[2021-06-03 19:02] LABS: Urine Blood Trace-intact (Negative); Urine Glucose Negative (Negative); Urine Protein Negative (Negative); Urine Specific Gravity 1.015 (1.005-1.030); Urine pH 5.5 (5.0-7.0)
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
[2021-06-03 19:31] LABS: Barbiturates NEGATIVE (NEGATIVE); Benzodiazepines NEGATIVE (NEGATIVE); Cocaine NEGATIVE (NEGATIVE); METHAMPHETAM NEGATIVE (NEGATIVE); Methadone NEGATIVE (NEGATIVE); Opiates NEGATIVE (NEGATIVE); Phencyclidine NEGATIVE (NEGATIVE); THC Cannibis NEGATIVE (NEGATIVE)
[2021-06-03] MEDS ORDERED: HYDRALAZINE HCL 20 MG/ML VIAL ONE (19:44)
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
[2021-06-03] MEDS ORDERED: ACETAMINOPHEN 500 MG TAB ONE (22:24)
[2021-06-03 22:27] LABS: Magnesium 1.8
[2021-06-03 22:58] VITALS: BMI 17.4
[2021-06-03] MEDS ORDERED: ONDANSETRON 4 MG/2 ML VIAL IV PRN (23:00)
[2021-06-03] MEDS ORDERED: ACETAMINOPHEN 500 MG TAB PO PRN (23:00)
[2021-06-03] MEDS ORDERED: ATORVASTATIN 40 MG TAB PO SCH (23:00)
[2021-06-03] MEDS ORDERED: HYDRALAZINE HCL 20 MG/ML VIAL IV PRN (23:00)
[2021-06-03] MEDS ORDERED: ATORVASTATIN 20 MG TAB ONE (23:07)
[2021-06-04] MEDS ORDERED: HYDRALAZINE HCL 20 MG/ML VIAL ONE (02:42)
[2021-06-04 03:24] LABS: SARS-COV-2 RT PCR POSITIVE (NEGATIVE)
[2021-06-04 04:34] LABS: Absolute Lymphocytes (CBC) 1.7 K/uL (0.7-4.9); Hematocrit 34.5 % (36.0-45.0); RBC Red Blood Cell Count 3.91 M/uL (3.86-4.86)
[2021-06-04 05:33] LABS: ALT/SGPT 19 U/L (12-78); AST/SGOT 19 U/L (15-37); Albumin 3.3 g/dL (3.4-5.0); Alkaline Phosphatase 79 U/L (45-117); BUN Blood Urea Nitrogen 11 mg/dL (7-18); Bicarbonate 26 mmol/L (21-32); Bilirubin Total 0.4 mg/dL (0.2-1.0); Glucose Level 107 mg/dL (74-106); HDL Cholesterol 109 mg/dL (40-60); LDL Cholesterol, Calculated 87 (<130); Potassium 3.3 mmol/L (3.5-5.1); Protein, Total 6.6 g/dL (6.4-8.2); Sodium Level 142 mmol/L (136-145)
[2021-06-04 05:38] LABS: C-Reactive Protein < 2.90 mg/L (<3.00)
[2021-06-04] MEDS ORDERED: POTASSIUM 25 MEQ EFFERV TAB PO STA (05:56)
[2021-06-04] MEDS ORDERED: PNEUMOCOCCAL VACCINE 0.5 ML IMVAC ONE (08:00)
--- NOTE | 2021-06-04 08:59 | EKG ---
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
[2021-06-04] MEDS ORDERED: FOLIC ACID 1 MG TABLET PO SCH (09:00)
[2021-06-04] MEDS ORDERED: ENOXAPARIN 40 MG/0.4 ML SQ SCH (09:00)
[2021-06-04] MEDS ORDERED: ASPIRIN EC 81 MG TAB PO SCH (09:00)
[2021-06-04 10:34] VITALS: O2SAT 100
[2021-06-04 12:20] LABS: Magnesium 1.8
[2021-06-04 12:27] VITALS: BP 143/66; TEMP 98.5
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
== END 2021-06-04 14:15 | disposition home or self-care (01) ==
LOC: ER 15:57 → ERHOLD 19:20 → 4TH 06-04 08:59
PROVIDERS: ADMIT Internal Medicine; ATTEND Internal Medicine
DX: R41.82 Altered mental status, unspecified (principal); U07.1 COVID-19; I10 Essential (primary) hypertension; H53.8 Other visual disturbances; L40.9 Psoriasis, unspecified; Z98.890 Other specified postprocedural states; Z86.73 Personal history of transient ischemic attack (TIA), and cerebral infarction without residual deficits; Z85.828 Personal history of other malignant neoplasm of skin; Z85.51 Personal history of malignant neoplasm of bladder; Z85.41 Personal history of malignant neoplasm of cervix uteri; Z85.72 Personal history of non-Hodgkin lymphomas; Z88.0 Allergy status to penicillin; Z90.49 Acquired absence of other specified parts of digestive tract; Z82.49 Family history of ischemic heart disease and other diseases of the circulatory system
CPT/HCPCS: 93005; 85025 ×2; 80048; 36415; 80320; 82140; 83735 ×2; 84100; 85610; 80061; 80076; 85652; 84443; 81003; 84484; 84439; 82607; 80053; 83880; 0240U; 80307; 86140; 70450; 71045; 93880; 70551; 70544; J0360 ×2; J1650; G0378 ×3; 96374; 99285

== ENCOUNTER 2021-07-29 14:48 | Emergency (ER) | payer OTHER ==
--- OUTSIDE RECORDS SUMMARY | 2021-07-29 14:51 | XMS REPORT | Continuity of Care Document ---
:1950 Author Organization [facility] t Address [address] [place] [address] Care Team Providers Name Role Phone DANOKimBRANDON Primary Care Physician Unavailable CARLOS Attending Clinician Unavailable ANDREINA GONZALEZ Attending Clinician Unavailable ANDREINA GONZALEZ Attending Clinician Unavailable Estrada PEPE, K.H. Attending Clinician Clifford Triana MD Attending Clinician Doctor Unassigned, Name Attending Clinician Unavailable Provider, Urgent Care Attending Clinician Unavailable MARIS Attending Clinician Unavailable CÉSAR Attending Clinician Unavailable Payers Payer Name Policy Type Policy Number Effective Date Expiration Date S niya [facility] [id number] 2015 PPO 00:00:00 [facility] MEDICARE [id number] 2020 ADVANTAGE 00:00:00 [facility] [id number] 2020 [facility] 00:00:00 PPO Problems Condition Condition Condition Status Onset Resolution Last Treating Co mments Source Name Details Category Date Date Treatment Clinician Date Hypertensi Hypertensi Disease Active U nivers ve urgency ve urgency 2-25 it y of 00:00: [place] [facility] Branch Skin Skin Disease Active Univers cancer cancer 2-25 ity of 00:00: [address] Lymphoma Lymphoma Disease Active Unive rs 2-25 ity of 00:00: [address] Branch Cervical Cervical Disease Active Unive rs cancer cancer 2-25 ity of 00:00: [address] Branch TIA TIA Disease Active Univers (transient (transient 2-25 it y of ischemic ischemic 00:00: [place] attack) attack) 00 Medical Branch [place] 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 00 [place] Essential Essential Disease Active Uni vers hypertensi hypertensi 5- it y of on on 00:00: [place] 00 Medical Branch Bladder Bladder Disease Active Univers cancer cancer 08-30 ity of 00:00: [place] 00 Medical Branch Psoriasis Psoriasis Disease Active Uni vers 08-30 ity of 00:00: [place] 00 Medical Branch Psoriatic Psoriatic Disease Active Uni vers arthritis arthritis 08-30 ity of 00:00: [place] [facility] Insomnia Insomnia Disease Active Unive rs 08-30 ity of 00:00: [place] 00 Medical Branch Allergies, Adverse Reactions, Alerts Allergy Allergy Status Severity Reaction(s) Onset Inactive Treating Comm ents Source Name Type Date Date Clinician PENICILL DRUG Active Unknown-Cmnt Un ke IN INGREDI 06-18 ity of 00:00: [place] 00 Medical Branch Penicill Propensi Active Unknown - Uni vers in ty to See comments 06-18 ity of adverse 00:00: [place] reaction 00 Medical s Branch Social History Social Habit Start Date Stop Date Quantity Comments Source Exposure to Not sure [facility] SARS-CoV-2 (event) Medica l Branch History [facility] o f [place] Alcohol Frequency Medical Branch History [facility] University o f [place] Alcohol Std Drinks Medica l Branch History [facility] o f [place] Alcohol Binge Medical Bra [facility] Alcohol intake 2021-06-22 2021-06-22 .14 /d [facility] 00:00:00 00:00:00 Medical Branch Alcohol Comment 2015-08-31 2015-08-31 occ [facility] 00:00:00 00:00:00 Medical Branch Tobacco use and 2015-08-31 2015-08-31 Never used [facility] exposure 00:00:00 00:00:00 Medical Branch Sex [birth year] [facility] 00:00:00 00:00:00 Medical Branch Smoking Status Start Date Stop Date Source Former smoker 2015-08-31 00:00:00 2015-08-31 00:00:00 [facility] Medical Branch Medications Ordered Filled Start Stop Current Ordering Indication Dosage Frequency Signature Comments Components Source Medication Medication Date Date Medication? Clinician (SIG) Name Name levETIRAcet Yes 500mg Take 500 U nivers am (KEPPRA) 3-29 mg by ity of 500 mg 13:12: mouth 2 [place] tablet 39 (two) Medical times Branch daily. levETIRAcet Yes 500mg Take 500 U nivers am (KEPPRA) 3-29 mg by ity of 500 mg 13:12: mouth 2 [place] tablet 39 (two) Medical times Branch daily. NIFEdipine Yes [id number] 30mg Take 1 U nivers XL 30 mg 24 3-24 tablet by ity of hr tablet 00:00: mouth 2 [place] (two) Medical times Branch daily. carvediloL Yes [id number] 25mg Take 2 Univers 12.5 mg 3-22 tablets by ity of tablet 00:00: mouth 2 [place] (two) Medical times Branch daily with meals. carvediloL Yes [id number] 25mg Take 2 Univers 12.5 mg 3-22 tablets by ity of tablet 00:00: mouth 2 [place] (two) Medical times Branch daily with meals. losartan 50 Yes [id number] 50mg Take 1 Univers mg tablet 3-03 tablet by ity o f 00:00: mouth 2 [place] (two) Medical times Branch daily. losartan 50 Yes [id number] 50mg Take 1 Univers mg tablet 3-03 tablet by ity o f 00:00: mouth 2 [place] (two) Medical times Branch daily. fluconazole 2020- No Yeast 150mg Take 1 U nivers (DIFLUCAN) 5-07 05-08 infection tablet by ity of 150 mg 00:00: 04:59 [place] tablet [place] :00 now for 1 Medical dose. Branch sulfamethox Yes Cystitis 1{tbl} Take 1 Univers azole-trime 5-06 tablet by ity of thoprim 00:00: mouth 2 [place] (BACTRIM 00 (two) Medical DS) 800-160 times Branch mg per daily. tablet fluconazole 2020- No Yeast 150mg Take 1 U nivers (DIFLUCAN) 5-06 05-07 infection tablet by ity of 150 [...] Medical needed for Branch Insomnia. HUMIRA PEN 2016-0 Yes Univers 40 mg/0.8 4-16 ity of mL 00:00: [place] injection 00 Medical Branch HUMIRA PEN 2016-0 Yes Univers 40 mg/0.8 4-16 ity of mL 00:00: [place] injection 00 Medical Branch Immunizations Ordered Filled Immunization Date Status Comments [facility] e Immunization Name Name Influenza Virus 2021-03-12 Completed Universit y of Vaccine - Whole 00:00:00 [facility] SARS-COV-2 COVID-19 2021-03-12 Completed Unive rsity of MODERNA VACCINE 00:00:00 [facility] Influenza Virus 2021-03-12 Completed Universit y of Vaccine - Whole 00:00:00 [facility] SARS-COV-2 COVID-19 2021-03-12 Completed Unive rsity of MODERNA VACCINE 00:00:00 [facility] SARS-COV-2 COVID-19 2020-05-29 Completed Unive rsity of MODERNA VACCINE 00:00:00 [facility] SARS-COV-2 COVID-19 2020-05-29 Completed Unive rsity of MODERNA VACCINE 00:00:00 [facility] SARS-COV-2 COVID-19 2020-05-29 Completed Unive rsity of MODERNA VACCINE 00:00:00 [facility] SARS-COV-2 COVID-19 2020-05-29 Completed Unive rsity of MODERNA VACCINE 00:00:00 [facility] SARS-COV-2 COVID-19 2020-05-01 Completed Unive rsity of MODERNA VACCINE 00:00:00 [facility] SARS-COV-2 COVID-19 2020-05-01 Completed Unive rsity of MODERNA VACCINE 00:00:00 [facility] SARS-COV-2 COVID-19 2020-05-01 Completed Unive rsity of MODERNA VACCINE 00:00:00 [facility] SARS-COV-2 COVID-19 2020-05-01 Completed Unive rsity of MODERNA VACCINE 00:00:00 [facility] Zoster Vaccine 2020-04-15 Completed University of Recombinant 00:00:00 [facility] Zoster Vaccine 2020-04-15 Completed University of Recombinant 00:00:00 [facility] PPD (TB) 2019-11-30 Completed University of 00:00:00 [facility] PPD (TB) 2019-11-30 Completed University of 00:00:00 [facility] PPD (TB) 2019-11-30 Completed University of 00:00:00 [facility] PPD (TB) 2019-11-30 Completed University of 00:00:00 [facility] Influenza High Dose 2018-03-09 Completed Unive rsity of 00:00:00 [facility] Influenza High Dose 2018-03-09 Completed Unive rsity of 00:00:00 [facility] Influenza High Dose 2018-03-09 Completed Unive rsity of 00:00:00 [facility] Influenza High Dose 2018-03-09 Completed Unive rsity of 00:00:00 [facility] PPD (TB) 2016-08-26 Completed University of 00:00:00 [facility] PPD (TB) 2016-08-26 Completed University of 00:00:00 [facility] PPD (TB) 2016-08-26 Completed University of 00:00:00 [facility] PPD (TB) 2016-08-26 Completed University of 00:00:00 [facility] Vital Signs Vital Name Observation Time Observation Value Comments Source Systolic blood 2021-07-23 18:10:00 122 mm[facility]Hg[facility] Diastolic blood 2021-07-23 18:10:00 72 mm[Hg] Unive [facility] Heart rate 2021-07-23 18:10:00 72 /min [facility] Body weight 2021-07-23 18:10:00 50.349 kg [facility] BMI 2021-07-23 18:10:00 17.92 kg/m2 [facility] Oxygen saturation 2021-07-23 18:10:00 100 /min [facility] in Arterial blood Medical Br anch by Pulse oximetry Procedures This patient has no known procedures. Plan of Care Planned Activity Planned Date Details Comments Source Future Scheduled 2029-12-05 Screening for University [facility] Test 00:00:00 [facility] (procedure) [code = 483380659] Future Scheduled 2029-12-05 Screening for [facility] Test 00:00:00 osteoporosis Medical Branch (procedure) [code = 993838838] Future Scheduled 2021-01-19 Screening for University [facility] Test 00:00:00 malignant neoplasm of Medica l Branch lung (procedure) [code = 792856770] Future Scheduled 2021-01-19 Screening for [facility] Test 00:00:00 malignant neoplasm of Medica l Branch lung (procedure) [code = 485648318] Future Scheduled 2020 [facility] (Season Ended) [code = Medic al Branch INFLUENZA VACCINE (Season Ended)] Future Scheduled 2020 [facility] (Season Ended) [code = Medic al Branch INFLUENZA VACCINE (Season Ended)] Future Scheduled 2014 Medicare Annual [facility] Test 00:00:00 Wellness Visit Medical Bran h (procedure) [code = 717201204355441] Future Scheduled 2014 [facility] 65+ (1 of 1 - PPSV23) Medica l Branch [code = PNEUMOCOCCAL VACCINES 65+ (1 of 1 - PPSV23)] Future Scheduled 2014 Medicare Annual [facility] Test 00:00:00 Wellness Visit Medical Bran h (procedure) [code = 325857649275081] Future Scheduled 2014 [facility] 65+ (1 of 1 - PPSV23) Medica l Branch [code = PNEUMOCOCCAL VACCINES 65+ (1 of 1 - PPSV23)] Future Scheduled 1999-12-27 Screening for occult Uni [facility] Test 00:00:00 blood in feces Medical Branc h (procedure) [code = 534090034] Future Scheduled 1999-12-27 Stool DNA-based [facility] Test 00:00:00 colorectal cancer Medical Br anch screening (procedure) [code = 924592088467375] Future Scheduled 1999-12-27 Flexible fiberoptic [facility] Test 00:00:00 sigmoidoscopy Medical Branch (procedure) [code = 33101567] Future Scheduled 1999-12-27 Screening for [facility] Test 00:00:00 malignant neoplasm of Medica l Branch colon (procedure) [code = 876264899] Future Scheduled 1999-12-27 Screening for [facility] Test 00:00:00 malignant neoplasm of Medica l Branch colon (procedure) [code = 998958081] Future Scheduled 1999-12-27 Zoster Recombinant [facility] Test 00:00:00 Vaccine (SHINGRIX) (1 Medica l Branch of 2) [code = Zoster Recombinant Vaccine (SHINGRIX) (1 of 2)] Future Scheduled 1999-12-27 Screening for occult Uni [facility] Test 00:00:00 blood in feces Medical Branc h (procedure) [code = 063070408] Future Scheduled 1999-12-27 Stool DNA-based [facility] Test 00:00:00 colorectal cancer Medical Br anch screening (procedure) [code = 706509356842997] Future Scheduled 1999-12-27 Flexible fiberoptic [facility] Test 00:00:00 sigmoidoscopy Medical Branch (procedure) [code = 13047734] Future Scheduled 1999-12-27 Screening for [facility] Test 00:00:00 malignant neoplasm of Medica l Branch colon (procedure) [code = 529107484] Future Scheduled 1999-12-27 Screening for [facility] Test 00:00:00 malignant neoplasm of Medica l Branch colon (procedure) [code = 345366568] Future Scheduled 1999-12-27 Zoster Recombinant [facility] Test 00:00:00 Vaccine (SHINGRIX) (1 Medica l Branch of 2) [code = Zoster Recombinant Vaccine (SHINGRIX) (1 of 2)] Future Scheduled 1989 Screening for [facility] Test 00:00:00 malignant neoplasm of Medica l Branch breast (procedure) [code = 046148285] Future Scheduled 1989 Screening for [facility] Test 00:00:00 malignant neoplasm of Medica l Branch breast (procedure) [code = 611852229] Future Scheduled 1968 DTaP,Tdap,and Td Univers ity [facility] Test 00:00:00 Vaccines (1 - Tdap) Medical Branch [code = DTaP,Tdap,and Td Vaccines (1 - Tdap)] Future Scheduled 1968 DTaP,Tdap,and Td [facility] [place] Test 00:00:00 Vaccines (1 - Tdap) Medical Branch [code = DTaP,Tdap,and Td Vaccines (1 - Tdap)] Future Scheduled 1967-12-27 Hepatitis C screening [facility] [place] Test 00:00:00 (procedure) [code = Medical Branch 263535246] Future Scheduled 1967-12-27 Hepatitis C screening [facility] [place] Test 00:00:00 (procedure) [code = Medical Branch 084924114] Future Scheduled 1961 Depression screening [facility] [place] Test 00:00:00 (procedure) [code = Medical Branch 172962371] Future Scheduled 1961 Depression screening Uni [facility] [place] Test 00:00:00 (procedure) [code = Medical Branch 970279708] Encounters Start End Encounter Admission Attending Care Care Encounter Source Date/Time Date/Time Type Type Clinicians Facility Department ID 2021-05-30 Outpatient EDMOND PRUITT [id number] 17:39:32 Andersneida quiroga 2021-05-30 Outpatient EDMOND PRUITT [id number] 17:39:32 Anderso junaid 2021-03-01 Outpatient CARLOS NICKLAUS [facility] [id number] [place] 15:44:15 [facility] 2021-08-06 2021-08-06 Outpatient DAREK LANDRY [facility] [id number] Univers 15:00:00 15:00:00 DAREK GONZALEZ [id number] [facility] 2021-08-06 2021-08-06 Outpatient DAREK LANDRY [facility] [id number] Univers 15:00:00 15:00:00 [facility] 2021-07-25 Telephone LIBRADO [place] [id number] Univers 00:00:00 00:00:00 [id number] [id number] Abdirahman as [phone] [address] 2021-07-23 2021-07-23 Office Estrada [facility] [id number] Univers 13:00:00 13:45:48 Visit Meghan BELLA [id number] ity lonny STRANGE [id number] Christina s PROFESSIO [phone] Wi dical NAL 059 Branch BUILDING 2019-09-21 2019-09-21 [facility] [id number] 00:00:00 00:00:00 [facility] [id number] Edward Sunray [id number] Professio [phone] nal [address] 2019-09-21 2019-09-21 [facility] [id number] 00:00:00 00:00:00 [facility] [id number] Edward Sunray [id number] Professio [phone] formerly [facility] 0[address] 2019-09-08 2019-09-08 Urgent Provider, [facility] [id number] 09:18:26 10:15:27 Care [facility] [id number] Care [place] [id number] Professio [phone] nal 044 [address] 2019-08-15 2019-08-15 Patient Doctor LIBRADO [id number] 00:00:00 00:00:00 Secure Msg Unassigned, RAJ [id number] Robert Lee [facility] [id number] 2019-06-23 2019-06-23 Emergency MARIS, [facility] 064 [id number] [address] [place] 00:00:00 00:00:00 TALON [address] 2019-06-20 2019-06-20 Emergency CÉSAR, [facility] 064 [id number] [address] [place] 00:00:00 00:00:00 SEE [address] Results This patient has no known results.
[2021-07-29] MEDS ORDERED: NA CHLORIDE 0.9% 1,000 ML ONE (15:24)
--- NOTE | 2021-07-29 15:41 | RAD REPORT ---
EXAM DESCRIPTION: CT - Head Brain Wo Cont - 07/29/2021 3:20 pm CLINICAL HISTORY: Alteration of awareness/confusion COMPARISON: May 2021 TECHNIQUE: Computed axial tomography of the head was obtained. IV contrast was not requested. All CT scans are performed using dose optimization technique as appropriate and may include automated exposure control or mA/KV adjustment according to patient size. FINDINGS: An intracranial bleed is not seen . The ventricles are normal in caliber. No extra-axial fluid collection is noted. 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 IMPRESSION: No acute intracranial abnormality is seen. If patient's symptoms persist MRI of the bra in would be recommended.
[2021-07-29 15:48] LABS: Absolute Lymphocytes (CBC) 1.7 K/uL (0.7-4.9); Hematocrit 30.8 % (36.0-45.0); Lymphocytes % 25.6 % (15.3-44.8); MPV 9.3 fL (7.6-11.3); RBC Red Blood Cell Count 3.35 M/uL (3.86-4.86)
[2021-07-29 15:53] LABS: Protime INR 0.93
[2021-07-29 16:18] LABS: ALT/SGPT 23 U/L (12-78); Albumin 3.4 g/dL (3.4-5.0); Alkaline Phosphatase 65 U/L (45-117); BUN Blood Urea Nitrogen 14 mg/dL (7-18); Bicarbonate 23 mmol/L (21-32); Bilirubin Total 0.4 mg/dL (0.2-1.0); Glucose Level 71 mg/dL (74-106); Protein, Total 6.8 g/dL (6.4-8.2); Sodium Level 142 mmol/L (136-145)
[2021-07-29 16:19] LABS: AST/SGOT 22 U/L (15-37); Bilirubin Direct < 0.1 mg/dL (0-0.2); Potassium 3.9 mmol/L (3.5-5.1)
[2021-07-29 16:31] LABS: Urine Blood Trace-intact (Negative); Urine Glucose Negative (Negative); Urine Protein Negative (Negative)
[2021-07-29 16:47] LABS: Barbiturates NEGATIVE (NEGATIVE); Benzodiazepines NEGATIVE (NEGATIVE); Cocaine NEGATIVE (NEGATIVE); METHAMPHETAM NEGATIVE (NEGATIVE); Methadone NEGATIVE (NEGATIVE); Opiates NEGATIVE (NEGATIVE); Phencyclidine NEGATIVE (NEGATIVE); THC Cannibis NEGATIVE (NEGATIVE)
--- NOTE | 2021-07-29 18:05 | EDPHYS ---
Physician Documentation [facility] Name: Kitty Nicholson Age: 70 yrs Sex: Female : 1950 Arrival Date: 07/29/2021 Time: 14:57 Bed 18 Private MD: ED Physician Faustino Dobson HPI: 07/29 15:37 This 70 yrs old Female presents to ER via EMS with complaints of AMS. rn 15:37 The patient presents with confusion, decreased mental status, decreased responsiveness. rn Onset: The symptoms/episode began/occurred just prior to arrival. Possible causes: unknown. Associated signs and symptoms: Pertinent positives: confusion, Pertinent negatives: abdominal pain, chest pain, seizure. Current symptoms: In the emergency department the patient's symptoms are unchanged from the initial presentation. It is unknown whether or not the patient has had similar symptoms in the past. The patient has not recently seen a physician. EMS states family called 911 when patient was outdoors, working with them in shed, became altered, decreased responsiveness, no obvious trauma. Patient does report a little ETOH recently, as well as ingesting 3 weed gummies today. No chest pain/sob/abd pain. No focal pain. Patient states feels fine.. Historical: - Allergies: 15:13 PENICILLINS; gibson - PMHx: 15:13 Bladder cancer; cervical cancer; Hypertensive disorder; LYMPHOMA; gibson - Immunization history:: Adult Immunizations up to date. - Social history:: Smoking status: Patient denies any tobacco usage or history of. - Family history:: not pertinent. - Hospitalizations: : No recent hospitalization is reported. ROS: 15:37 Constitutional: Negative for fever, chills, and weight loss, Eyes: Negative for injury, rn pain, redness, and discharge, Neck: Negative for injury, pain, and swelling, Cardiovascular: Negative for chest pain, palpitations, and edema, Respiratory: Negative for shortness of breath, cough, wheezing, and pleuritic chest pain, Abdomen/GI: Negative for abdominal pain, nausea, vomiting, diarrhea, and constipation, Back: Negative for injury and pain, : Negative for injury, bleeding, discharge, and swelling, MS/Extremity: Negative for injury and deformity, Skin: Negative for injury, rash, and discoloration, Neuro: Negative for headache, weakness, numbness, tingling, and seizure. Exam: 15:37 Constitutional: This is a well developed, well nourished patient who is awake, slow to rn respond, glossy eyes, following all commands. Head/Face: Normocephalic, atraumatic. Eyes: Periorbital areas with no swelling, redness, or edema. ENT: Dry MM Cardiovascular: Regular rate and rhythm. No pulse deficits. Respiratory: No increased work of breathing, no retractions or nasal flaring. Abdomen/GI: Soft, non-tender Skin: Warm, dry MS/ Extremity: Pulses equal, no cyanosis. Neuro: Awake, oriented to person/place/time. answering all questions, 5/5 strength throughout, normal sensation, normal cerebellar exam. Vital Signs: 14:57 BP 159 / 71 LA (auto/); Pulse 77; Resp 14; Temp 97(O); Pulse Ox 99% on R/A; Weight mb7 54.43 kg (R); Height 5 ft. 6 in. (167.64 cm) (R); 15:30 BP 156 / 68; Pulse 74; Resp 16; Pulse Ox 100% on R/A; gibson 16:30 BP 164 / 70; Pulse 92; Resp 18; Pulse Ox 99% ; gibson 14:57 Body Mass Index 19.37 (54.43 kg, 167.64 cm) mb7 MDM: 14:57 Patient medically screened. rn 16:39 ED course: Family member/friend here, states this has happened twice before without rn clear etiology, states did not drink ETOH today, and does not believe had marijuana gummies. States was there when she became altered, got weak all over and lost control of her bowels. Seen by Dr. Castillo in past and put on seizure medication. 17:08 ED course: Pt improving on her own at this point. . rn 18:00 Differential Diagnosis: CVA, electrolyte abnormality, alcohol intoxication, rn hypoglycemia, intracranial bleed, seizure, TIA, UTI, volume depletion. Data reviewed: vital signs, nurses notes, lab test result(s), EKG, radiologic studies, CT scan, and as a result, I will discharge patient. Counseling: I had a detailed discussion with the patient and/or guardian regarding: the historical points, exam findings, and any diagnostic results supporting the discharge/admit diagnosis, lab results, radiology results, the need for outpatient follow up, to return to the emergency department if symptoms worsen or persist or if there are any questions or concerns that arise at home. Response to treatment: the patient's symptoms have markedly improved after treatment, and as a result, I will discharge patient. Special discussion: I discussed with the patient/guardian in detail that at this point there is no indication for admission to the hospital. It is understood, however, that if the symptoms persist or worsen the patient needs to return immediately for re-evaluation. Based on the history and exam findings, there is no indication for further emergent testing or inpatient evaluation. I discussed with the patient/guardian the need to see the neurologist for further evaluation of the symptoms. ED course: Consulted with Dr. Castillo, states no benefit at this point to admit, already had neg MRI, and unable to obtain continuous EEG. Recommends increasing keppra to 750mg BID since currently taking 500mg BID. Spoke with family and friend, they agree with plan and are taking her home. Return precautions given and understood. Patient is going to stay with son until this cleared up.. 07/29 14:59 Order name: Acetaminophen; Complete Time: 16:55 rn 07/29 14:59 Order name: Basic Metabolic Panel; Complete Time: 16:55 rn 07/29 14:59 Order name: CBC with Diff; Complete Time: 15:59 rn 07/29 14:59 Order name: Hepatic Function; Complete Time: 16:55 rn 07/29 14:59 Order name: PT-INR; Complete Time: 15:59 rn 07/29 14:59 Order name: Ptt, Activated; Complete Time: 15:59 rn 07/29 14:59 Order name: Salicylate; Complete Time: 16:16 rn 07/29 14:59 Order name: Urine Drug Screen; Complete Time: 16:55 rn 07/29 14:59 Order name: EKG; Complete Time: 15:00 rn 07/29 14:59 Order name: EKG - Nurse/Tech; Complete Time: 15:09 rn 07/29 14:59 Order name: CT Head Brain wo Cont; Complete Time: 15:45 rn 07/29 16:32 Order name: Urine Dipstick-Ancillary; Complete Time: 16:55 EDMS 07/29 14:59 Order name: IV Saline Lock; Complete Time: 15:19 rn 07/29 14:59 Order name: Labs collected and sent; Complete Time: 15:19 rn 07/29 14:59 Order name: Urine Dipstick-Ancillary (obtain specimen); Complete Time: 15:19 rn Administered Medications: 15:30 Drug: NS 0.9% 1000 ml Route: IV; Rate: 1000 ml; Site: left forearm; gibson Disposition Summary: 07/29/21 18:04 Discharge Ordered Location: Home rn Problem: an ongoing problem rn Symptoms: have improved rn Condition: Stable rn Diagnosis - Altered mental status, unspecified rn - Epileptic seizures related to external causes, not intractable rn Followup: rn - With: Private Physician - When: As needed - Reason: Recheck today's complaints, Re-evaluation by your physician Discharge Instructions: - Discharge Summary Sheet rn - Seizure, Adult rn Forms: - Medication Reconciliation Form rn - Thank You Letter rn - Antibiotic overnight houseperson - Prescription Opioid Use rn Prescriptions: - Keppra 750 mg Oral Tablet - take 1 tablet by ORAL route every 12 hours; 60 tablet; Refills: 0, Product rn Selection Permitted Signatures: Dispatcher [employer] Faustino Pedersen MD MD rn Moira Scales RN RN gibson
--- NOTE | 2021-07-29 18:05 | ER ---
Nurse's Notes [facility] Name: Kitty Nicholson Age: 70 yrs Sex: Female : 1950 Arrival Date: 07/29/2021 Time: 14:57 Bed 18 Private MD: Diagnosis: Altered mental status, unspecified;Epileptic seizures related to external causes, not intractable Presentation: 07/29 15:10 Chief complaint: EMS states: Neighbors said she was acting different and so they called [facility]. She was found in a shed. Patient admits to taking 3 THC gummies and drinking some alcohol. Patient is soiled with feces. She is stating that the "farmers have the weed and won't share it". Coronavirus screen: At this time, unable to obtain information related to travel outside the [place] Ebola Screen: Patient denies travel to an Ebola-affected area in the 21 days before illness onset. Initial Sepsis Screen: Does the patient meet any 2 criteria? No. Patient's initial sepsis screen is negative. Does the patient have a suspected source of infection? No. Patient's initial sepsis screen is negative. Risk Assessment: Do you want to hurt yourself or someone else? Unable to obtain. Onset of symptoms is unknown. 15:10 Method Of Arrival: EMS: [facility] 15:10 Acuity: JEAN CLAUDE 3 ww Triage Assessment: 15:10 General: Appears in no apparent distress. comfortable, Behavior is calm, cooperative. ww Pain: Denies pain. EENT: No signs and/or symptoms were reported regarding the EENT system. Neuro: Level of Consciousness is awake, alert, Oriented to situation, Moves all extremities. Speech is normal. Cardiovascular: Patient's skin is warm and dry. Chest pain is denied. Respiratory: Airway is patent Respiratory effort is even, unlabored, Respiratory pattern is regular, symmetrical. GI: Abdomen is non-distended, Stools are reported to be loose, patient soiled her underwear and had feces down her legs. . Derm: Skin is intact. Historical: - Allergies: 15:13 PENICILLINS; gibson - PMHx: 15:13 Bladder cancer; cervical cancer; Hypertensive disorder; LYMPHOMA; gibson - Immunization history:: Adult Immunizations up to date. - Social history:: Smoking status: Patient denies any tobacco usage or history of. - Family history:: not pertinent. - Hospitalizations: : No recent hospitalization is reported. Screenin:13 Abuse screen: Denies threats or abuse. Denies injuries from another. Nutritional gibson screening: No deficits noted. Tuberculosis screening: No symptoms or risk factors identified. Fall Risk Mental Status-. Assessment: 15:10 General: Appears comfortable, Behavior is calm, cooperative. Pain: Denies pain. Neuro: gibson Level of Consciousness is lethargic, Oriented to situation, Reports weakness. Vital Signs: 14:57 BP 159 / 71 LA (auto/); Pulse 77; Resp 14; Temp 97(O); Pulse Ox 99% on R/A; Weight mb7 54.43 kg (R); Height 5 ft. 6 in. (167.64 cm) (R); 15:30 BP 156 / 68; Pulse 74; Resp 16; Pulse Ox 100% on R/A; gibson 16:30 BP 164 / 70; Pulse 92; Resp 18; Pulse Ox 99% ; gibson 14:57 Body Mass Index 19.37 (54.43 kg, 167.64 cm) 7 ED Course: 14:57 Patient arrived in ED. iw 14:57 Faustino Dobson MD is Attending Physician. rn 15:03 Moira Scales, CHRISTA is Primary Nurse. gibson 15:13 EKG done, by ED staff, reviewed by Faustino Dobson MD. [facility] 15:13 No provider procedures requiring assistance completed. gibson 15:13 Inserted saline lock: 20 gauge in left forearm, using aseptic technique. gibson 15:13 Patient has correct armband on for positive identification. Bed in low position. gibson 15:15 Triage completed. ww 15:15 Arm band placed on. gibson 15:17 monitoring analyst on. Pulse ox on. NIBP on. ww 15:17 Cleaned of incontinence. Linen changed. ww 15:20 CT Head Brain wo Cont In Process Unspecified. EDMS 18:30 IV discontinued, intact, Pressure dressing applied. gibson Administered Medications: 15:30 Drug: NS 0.9% 1000 ml Route: IV; Rate: 1000 ml; Site: left forearm; gibson Outcome: 18:04 Discharge ordered by . rn 18:30 Discharged to home with family. gibson 18:30 Condition: good 18:30 Discharge instructions given to patient, family. 18:30 Patient left the ED. gibson Signatures: Dispatcher [employer] EDMS Bibiana Gagene, RN RN Faustino Ni MD MD [place] [id number] Jordyn Ahuja RN RN Moira Montesinos RN RN ha
[2021-07-29 19:08] VITALS: TEMP 97
[2021-07-29 19:11] VITALS: BP 164/70; O2SAT 99
--- NOTE | 2021-07-30 08:30 | EKG ---
Test Date: 2021-07-29 Test Time: 15:12:09 Components Engineer: MB MEASUREMENT RESULTS: Intervals: Rate: 80 MS: 120 QRSD: 70 QT: 400 QTc: 461 [place]: P: 81 MS: 120 QRS: 83 T: 86 INTERPRETIVE STATEMENTS: Normal sinus rhythm Septal infarct, age undetermined Abnormal ECG Compared to ECG 06/03/2021 16:39:38 No significant changes Electronically Signed On 07-30-21 08:28:01 CDT by Silver Cates
== END 2021-07-29 18:30 | disposition home or self-care (01) ==
LOC: ER 14:48
DX: G40.509 Epileptic seizures related to external causes, not intractable, without status epilepticus (principal); I10 Essential (primary) hypertension; Z85.41 Personal history of malignant neoplasm of cervix uteri; Z85.51 Personal history of malignant neoplasm of bladder; Z88.0 Allergy status to penicillin
CPT/HCPCS: 93005; 85025; 80048; 36415; 80329 ×2; 85610; 80076; 85730; 81003; 80307; 70450; 99285; J7030